=== PATIENT | male | born 1975 | race American Indian/Alaskan Native ===

== ENCOUNTER 2018-09-18 16:25 | Emergency (ER) | payer OTHER ==
[2018-09-18] MEDS ORDERED: ASPIRIN PO ONE (16:53)
--- NOTE | 2018-09-18 16:54 | Emergency Department Report ---
Chief Complaint: Chest Pain Stated Complaint: CHEST PAIN/ABD PAIN Time Seen by Provider: 09/18/18 16:50 - HPI History of Present Illness: This is a 43 y.o. male that presents with chest pain x 1 week. He smokes marijuana daily. - ROS Review of Systems: left sided chest pain and diarrhea MSE screening note: Focused history and physical exam performed. Due to findings the following was ordered: labs and CXR Fast track for further evaluation. ED Disposition for MSE Condition: Stable
[2018-09-18 17:13] VITALS: BP 114/68
[2018-09-18 17:35] LABS: Basophils # (Auto) 0.1 K/mm3 (0.0-0.1); Eosinophils % (Auto) 0.4 % (0.0-4.3); Hematocrit 36.9 % (35.5-45.6); Lymphocytes % (Auto) 12.8 % (13.4-35.0); Mean Corpuscular HGB Conc 35 % (32-34); Mean Corpuscular Volume 88 fl (84-94); Monocytes % (Auto) 12.3 % (0.0-7.3); Platelet Count 390 K/mm3 (140-440); Red Blood Count 4.18 M/mm3 (3.65-5.03); Red Cell Distribution Width 13.5 % (13.2-15.2)
[2018-09-18 17:55] LABS: BUN/Creatinine Ratio 11; Blood Urea Nitrogen 9 mg/dL (9-20); Calcium 10.4 mg/dL (8.4-10.2); Hemolysis Index 6
--- NOTE | 2018-09-18 18:03 | XRay Report ---
PROCEDURE: XR CHEST 1V AP TECHNIQUE: Frontal chest x-ray HISTORY: Chest Pain COMPARISONS: None FINDINGS: Normal heart size. Lungs are clear and well-expanded without focal infiltrate or consolidation. Both costophrenic angles are clipped. No pneumothorax is identified. Imaged axial skeleton is unremarkable. Minimal dextroscoliosis thoracolumbar spine. Hilar contours are within normal limits. IMPRESSION: Both costophrenic angles are clipped. No definite pneumothorax. No acute cardiopulmonary disease.. This document is electronically signed by Leidy Burton MD., September 18 2018 06:00:47 PM ET
[2018-09-18] MEDS ORDERED: PEPCID PO ONE (18:51)
[2018-09-18] MEDS ORDERED: PEPCID ONE (18:55)
--- NOTE | 2018-09-18 19:42 | Emergency Department Report ---
HPI - General Chief Complaint: Chest Pain Time Seen by Provider: 09/18/18 16:50 - HPI HPI: This is a 43-year-old male with known history of hypertension or diabetes or any medical condition who presents to ED complaining of midsternal chest pain that feels like it's coming from his stomach for the past 2 weeks. Patient states that he has had some nausea but no vomiting no diarrhea pain. Patient also states that he's been constipated for about a week now. Patient states pain is burning type sensation does intermittently throughout the day. He denies trauma to the chest or radiation anywhere else Patient denies fever/chills/ shortness of breath/headache/brown vision/diarrhea ED Past Medical Hx - Past Medical History Previous Medical History?: No - Surgical History Past Surgical History?: No - Social History Smoking Status: Current Every Day Smoker - Medications Home Medications: Home Medications Medication Instructions Recorded Confirmed Last Taken Type Famotidine [Pepcid] 40 mg PO QHS #30 tablet 09/18/18 Unknown Rx Mag Hydrox/Aluminum Hyd/Simeth 15 ml PO Q6H #1 oral.susp 09/18/18 Unknown Rx [Maalox Advanced Suspension] Ondansetron (Nf) [Zofran TAB] 8 mg PO Q8HR #30 tablet 09/18/18 Unknown Rx ED Review of Systems ROS: Stated complaint: CHEST PAIN/ABD PAIN Other details as noted in HPI Comment: All other systems reviewed and negative Physical Exam - Physical Exam Vital Signs: Vital Signs 09/18/18 09/18/18 17:12 17:57 Temperature 99.2 F Pulse Rate 99 H Respiratory 20 15 Rate Blood Pressure 114/68 [Right] O2 Sat by Pulse 97 Oximetry Physical Exam: GENERAL: Alert and oriented x3, no apparent distress, Normal Gait, atraumatic. HEAD: Head is normocephalic and a-traumatic. LUNGS: Symetrical with respiration, No wheezing, no rales or crackles, CTAB. HEART: S1, S2 present, regular rate and rhythm without murmur, no rubs, no gallops. Non tender to palpation ABDOMEN: No organomegaly was noted,Positive bowel sounds, soft, and non- distended. . Nontender to palpation on all Quadrants, NO CVA tenderness. BACK: Full range of motion, no spinal tenderness, nontender to palpation. SKIN: Warm and dry, No lesions, No ulceration or induration present. ED Course Vital Signs 09/18/18 09/18/18 17:12 17:57 Temperature 99.2 F Pulse Rate 99 H Respiratory 20 15 Rate Blood Pressure 114/68 [Right] O2 Sat by Pulse 97 Oximetry ED Medical Decision Making - Lab Data Result diagrams: 09/18/18 17:15 09/18/18 17:15 - Radiology Data Radiology results: report reviewed, image reviewed Chest x-ray shows abnormal findings. - Medical Decision Making 43-year-old male presents with acid reflux. All labs within normal limits troponin negative. Critical care attestation.: If time is entered above; I have spent that time in minutes in the direct care of this critically ill patient, excluding procedure time. ED Disposition Clinical Impression: Acid reflux Disposition: - TO HOME OR SELFCARE Is pt being admited?: No Does the pt Need Aspirin: No Condition: Stable Instructions: Diet for Ulcers and Gastritis (ED), Gastroesophageal Reflux Disease (ED) Additional Instructions: Make sure to follow up with the primary care physician as discussed. Take all your medications as you've been prescribed. If you have any worsening symptoms or develop new symptoms please return to ED immediately. Prescriptions: Famotidine [Pepcid] 40 mg PO QHS #30 tablet Mag Hydrox/Aluminum Hyd/Simeth [Maalox Advanced Suspension] 15 ml PO Q6H #1 oral.susp Ondansetron (Nf) [Zofran TAB] 8 mg PO Q8HR #30 tablet Referrals: [facility] [Provider Group] - 3-5 Days [facility] [Provider Group] - 3-5 Days Forms: Work/School Release Form(ED) Time of Disposition: 19:59
== END 2018-09-18 20:09 | disposition home or self-care (01) ==
LOC: ED 16:25
DX: K21.9 Gastro-esophageal reflux disease without esophagitis (principal); F17.200 Nicotine dependence, unspecified, uncomplicated
CPT/HCPCS: 36415; 71045; 80048; 84484; 85025; 93005; 93010

== ENCOUNTER 2020-08-19 05:24 | Inpatient (IN) | payer OTHER ==
[2020-08-19] MEDS ORDERED: LACTATED RINGERS 1,000 ML IV ONE (05:38)
[2020-08-19] MEDS ORDERED: SODIUM CHLORIDE 0.9% 1000 ML 1,000 ML IV ONE ×2 (05:38→06:49)
[2020-08-19] MEDS ORDERED: ONDANSETRON 4 MG/2 ML INJ IV ONE ×2 (05:38→06:49)
--- NOTE | 2020-08-19 06:14 | XRay Report ---
CHEST 1 VIEW 08/19/2020 6:00 AM INDICATION / CLINICAL INFORMATION: weakness. COMPARISON: 09/18/18 FINDINGS: SUPPORT DEVICES: None. HEART / MEDIASTINUM: No significant abnormality. LUNGS / PLEURA: No significant pulmonary or pleural abnormality. No pneumothorax. ADDITIONAL FINDINGS: No significant additional findings. IMPRESSION: 1. No acute findings. No change. Signer Name: John Borges MD Signed: 08/19/2020 6:09 AM Workstation Name: [id number]
[2020-08-19 06:27] LABS: Basophils % (Auto) 0.3 % (0.0-1.8); Eosinophils # (Auto) 0.4 K/mm3 (0.0-0.4); Eosinophils % (Auto) 4.8 % (0.0-4.3); Hematocrit 45.5 % (35.5-45.6); Hemoglobin 15.4 gm/dl (11.8-15.2); Lymphocytes % (Auto) 25.4 % (13.4-35.0); Mean Corpuscular HGB Conc 34 % (32-34); Mean Corpuscular Volume 84 fl (84-94); Monocytes # (Auto) 0.3 K/mm3 (0.0-0.8); Monocytes % (Auto) 3.6 % (0.0-7.3); Red Blood Count 5.45 M/mm3 (3.65-5.03); Red Cell Distribution Width 16.1 % (13.2-15.2)
[2020-08-19 06:40] LABS: Platelet Count 537 K/mm3 (140-440)
[2020-08-19] MEDS ORDERED: PIPERACIL/TAZOBACTA 4.5/NS 100 4.5 GM/100 ML VIAL IV ONE (06:49)
[2020-08-19] MEDS ORDERED: MORPHINE 2 MG/1 ML INJ IV ONE (06:49)
[2020-08-19] MEDS ORDERED: PANTOPRAZOLE 40 MG INJ IV ONE (06:49)
[2020-08-19 06:50] LABS: Alanine Aminotransferase 10 units/L (7-56); Albumin 4.1 g/dL (3.9-5); BUN/Creatinine Ratio 14; Blood Urea Nitrogen 18 mg/dL (9-20); Calcium 9.9 mg/dL (8.4-10.2); Hemolysis Index 24
--- NOTE | 2020-08-19 07:00 | Emergency Department Report ---
ED Abdominal Pain HPI - General Chief Complaint: Abdominal Pain Stated Complaint: EMESIS/DIARRHEA/SWEATING Time Seen by Provider: 08/19/20 06:14 Source: patient Mode of arrival: Wheelchair Limitations: No Limitations - History of Present Illness Initial Comments: This is a 45-year-old man who apparently has had vomiting diarrhea and abdominal pain for approximately 3 weeks. He is an extremely poor historian. He does not answer questions directly. He cannot tell me how many times a day he has been having diarrhea. He cannot tell me if he is seeing blood in his stool or his vomited anything like coffee grounds. He does tell me he drank some prune juice so he thinks that made his stool dark. He admits to no medical encounters over the course of this illness. Apparently he has been sweaty although he denies fever or chills. He does not state where his abdomen hurts but apparently it is diffusely tender. General appearance of this patient is very asthenic. He denies a history of HIV. He states he lives at home with "his lady". He states he had an HIV test in the past. He denies any past medical history or routine medication. He s tates he has never been hospitalized. He states he has never had any abdominal surgery. However the record is populated with a history of "stomach surgery". MD Complaint: abdominal pain -: week(s) Location: diffuse Radiation: other (Patient would not comprehend) Migration to: other (Unobtainable) Severity: severe Quality: aching (Did not describe) Consistency: constant Improves With: nothing Worsens With: other (Did not elaborate) Context: other (None of the above) - Related Data Previous Rx's Medication Instructions Recorded Last Taken Type Famotidine [Pepcid] 40 mg PO QHS #30 tablet 09/18/18 Unknown Rx Mag Hydrox/Aluminum Hyd/Simeth 15 ml PO Q6H #1 oral.susp 09/18/18 Unknown Rx [Maalox Advanced Suspension] Ondansetron (Nf) [Zofran TAB] 8 mg PO Q8HR #30 tablet 09/18/18 Unknown Rx Allergies Allergy/AdvReac Type Severity Reaction Status Date / Time No Known Allergies Allergy Unverified 09/18/18 16:28 ED Review of Systems ROS: Stated complaint: EMESIS/DIARRHEA/SWEATING Other details as noted in HPI Constitutional: other (Sweating). denies: chills, fever Eyes: denies: eye pain, vision change ENT: denies: ear pain, throat pain Respiratory: denies: cough, shortness of breath Cardiovascular: denies: chest pain, palpitations Endocrine: no symptoms reported Gastrointestinal: abdominal pain, nausea, vomiting, diarrhea Genitourinary: other (No symptoms reported) Musculoskeletal: denies: back pain, arthralgia Skin: denies: rash, lesions Neurological: denies: headache, weakness Psychiatric: denies: anxiety, depression Hematological/Lymphatic: denies: easy bleeding, easy bruising ED Past Medical Hx - Past Medical History Previous Medical History?: No - Surgical History Past Surgical History?: Yes Additional Surgical History: stomach surgery, will ask the patient again regarding this - Social History Smoking Status: Current Every Day Smoker Substance Use Type: Alcohol, Marijuana - Medications Home Medications: Home Medications Medication Instructions Recorded Confirmed Last Taken Type Famotidine [Pepcid] 40 mg PO QHS #30 tablet 09/18/18 Unknown Rx Mag Hydrox/Aluminum Hyd/Simeth 15 ml PO Q6H #1 oral.susp 09/18/18 Unknown Rx [Maalox Advanced Suspension] Ondansetron (Nf) [Zofran TAB] 8 mg PO Q8HR #30 tablet 09/18/18 Unknown Rx ED Physical Exam - General Limitations: No Limitations General appearance: alert - Head Head exam: Present: atraumatic, normocephalic - Eye Eye exam: Present: normal appearance. Absent: scleral icterus - ENT ENT exam: Present: mucous membranes moist - Neck Neck exam: Present: normal inspection - Respiratory Respiratory exam: Present: normal lung sounds bilaterally. Absent: respiratory distress - Cardiovascular Cardiovascular Exam: Present: normal rhythm, tachycardia. Absent: systolic murmur, diastolic murmur, rubs, gallop - GI/Abdominal GI/Abdominal exam: Present: soft, distended (Somewhat), tenderness, guarding, rebound (Probably), rigid (Somewhat), normal bowel sounds - Rectal Rectal exam: Present: deferred - Extremities Exam Extremities exam: Present: normal inspection - Back Exam Back exam: Present: normal inspection - Neurological Exam Neurological exam: Present: alert, oriented X3, CN II-XII intact. Absent: motor sensory deficit - Psychiatric Psychiatric exam: Present: normal affect, normal mood - Skin Skin exam: Present: warm, dry, intact, normal color. Absent: rash ED Course Vital Signs 08/19/20 08/19/20 08/19/20 05:34 06:00 06:02 Pulse Rate 64 78 Respiratory 14 30 H Rate Blood Pressure 53/25 90/51 O2 Sat by Pulse 86 100 Oximetry 08/19/20 08/19/20 08/19/20 06:20 06:30 06:40 Pulse Rate 97 H 107 H Respiratory 27 H 21 25 H Rate Blood Pressure 106/73 116/72 116/72 O2 Sat by Pulse 100 96 Oximetry - Reevaluation(s) Reevaluation #1: The patient presented to this emergency department hypotensive. He was given a fluid bolus prior to my arrival. He did respond. He is in the normotensive range during my encounter. He is already had CT for emergency imaging. Zosyn was ordered. Protonix. Type and screen. 08/19/20 07:03 Reevaluation #2: Patient examined on return from CT. Pneumoperitoneum was suspected clinically. I received a call from Dr. Retana that the patient has a large amount of free air most likely secondary to a perforated gastric ulcer consider malignancy. The patient remains awake and alert. He did have a second hypotensive episode. His blood pressure with additional fluids was approximately 120 systolic. I asked him about whether or not he had prior surgery. He said this time yes but does not described endoscopy for a stomach ulcer. I spoke with Dr. Figueroa, our general surgeon drafter directional survey. She is notifying the OR. I spoke with the hospitalist we are admitting the patient. I wade additional blood work via a radial stick without difficulty on the right. The lab was unable to get type and screen. Several tubes were drawn. Procedure was well- tolerated. 08/19/20 08:06 ED Medical Decision Making - Lab Data Result diagrams: 08/19/20 05:56 08/19/20 05:56 Laboratory Results - last 24 hr 08/19/20 08/19/20 08/19/20 05:56 05:56 05:56 WBC 8.0 RBC 5.45 H Hgb 15.4 H Hct 45.5 MCV 84 MCH 28 MCHC 34 RDW 16.1 H Plt Count 537 H Lymph % (Auto) 25.4 [place] % (Auto) 3.6 Eos % (Auto) 4.8 H Baso % (Auto) 0.3 Lymph # (Auto) 2.0 [place] # (Auto) 0.3 Eos # (Auto) 0.4 Baso # (Auto) 0.0 Seg Neutrophils % 65.9 Seg Neutrophils # 5.3 Sodium 141 Potassium 3.9 Chloride 97.1 L Carbon Dioxide 29 Anion Gap 19 BUN 18 Creatinine 1.3 Estimated GFR > 60 BUN/Creatinine Ratio 14 Glucose 153 H Lactic Acid 3.40 H* Calcium 9.9 Total Bilirubin 0.20 AST 14 ALT 10 Alkaline Phosphatase 76 Troponin T < 0.010 Total Protein 7.2 Albumin 4.1 Albumin/Globulin Ratio 1.3 08/19/20 05:56 WBC RBC Hgb Hct MCV MCH MCHC RDW Plt Count Lymph % (Auto) [place] % (Auto) Eos % (Auto) Baso % (Auto) Lymph # (Auto) [place] # (Auto) Eos # (Auto) Baso # (Auto) Seg Neutrophils % Seg Neutrophils # Sodium Potassium Chloride Carbon Dioxide Anion Gap BUN Creatinine Estimated GFR BUN/Creatinine Ratio Glucose Lactic Acid Calcium Total Bilirubin AST ALT Alkaline Phosphatase Troponin T < 0.010 Total Protein Albumin Albumin/Globulin Ratio - EKG Data EKG shows normal: sinus rhythm, axis, intervals, QRS complexes, ST-T waves - EKG Data Interpretation: LVH (Suggestive of LVH. No STEMI. Right atrial enlargement. Nonspecific changes.) - Radiology Data Radiology results: report reviewed interpreted by me: Chest x-ray no obvious pneumoperitoneum read as negative by radiologist FINDINGS: Abdomen/pelvis: There is small to medium free air along the anterior abdominal wall. Large free fluid is present throughout the abdomen. The stomach is markedly abnormal with diffuse gastric wall thickening measuring up to 2.3 cm. A large ulceration is identified along the lesser curvature of the stomach measuring up to 4.2 x 1.9 cm in axial plane. Perforated gastric ulcer is likely the etiology. Perforated gastric mass could also be considered but is thought less likely. The remaining small bowel loops are normal wall thickness and caliber. Mild diverticulosis of ascending colon is noted. Normal appendix. Sludge is suspected in the gallbladder. No biliary dilatation or inflammation. The liver, pancreas, spleen, adrenal glands and kidneys are unremarkable. 1.5 cm simple right renal cyst is noted. The aorta and vascular structures are patent and unremarkable. No evidence for adenopathy. The bladder and prostate gland are unremarkable. Lungs/bones: No significant abnormality. IMPRESSION: Large perforated gastric ulcer is suspected as described with free air and moderate to large fluid in the abdomen. See above. Probable sludge in the gallbladder. Mild diverticulosis of the proximal colon. Critical Care Time: Yes Critical care time in (mins) excluding proc time.: 90 Critical care attestation.: If time is entered above; I have spent that time in minutes in the direct care of this critically ill patient, excluding procedure time. ED Disposition Clinical Impression: Perforated gastric ulcer Qualifiers: Gastric ulcer chronicity: acute Qualified Code(s): K25.1 - Acute gastric ulcer with perforation Hypotension Qualifiers: Hypotension type: unspecified hypotension type Qualified Code(s): I95.9 - Hypotension, unspecified Disposition: DC-09 OP ADMIT IP TO THIS HOSP Is pt being admited?: Yes Does the pt Need Aspirin: No Condition: Stable Referrals: PRIMARY CARE, [Primary Care Provider] - 3-5 Days Time of Disposition: 08:14
--- NOTE | 2020-08-19 07:54 | Cat Scan Report ---
CT ABDOMEN AND PELVIS WITH CONTRAST HISTORY: Nausea, vomiting and diarrhea. Abdominal pain.. COMPARISON: None. TECHNIQUE: Helical CT images of the abdomen and pelvis were obtained following administration of intr avenous contrast. Sagittal and coronal reformatted images were reviewed. All CT scans at this [facility] are performed using CT dose reduction for ALARA by means of automated exposure control. CONTRAST: 100 ml of intravenous contrast administered. FINDINGS: Abdomen/pelvis: There is small to medium free air along the anterior abdominal wall. Large free flui d is present throughout the abdomen. The stomach is markedly abnormal with diffuse gastric wall thick ening measuring up to 2.3 cm. A large ulceration is identified along the lesser curvature of the stom ach measuring up to 4.2 x 1.9 cm in axial plane. Perforated gastric ulcer is likely the etiology. Per forated gastric mass could also be considered but is thought less likely. The remaining small bowel l oops are normal wall thickness and caliber. Mild diverticulosis of ascending colon is noted. Normal a ppendix. Sludge is suspected in the gallbladder. No biliary dilatation or inflammation. The liver, pancreas, s pleen, adrenal glands and kidneys are unremarkable. 1.5 cm simple right renal cyst is noted. The aorta and vascular structures are patent and unremarkable. No evidence for adenopathy. The bladder and prostate gland are unremarkable. Lungs/bones: No significant abnormality. IMPRESSION: Large perforated gastric ulcer is suspected as described with free air and moderate to large fluid in the abdomen. See above. Probable sludge in the gallbladder. Mild diverticulosis of the proximal colon. CRITICAL RESULT: Time of Discovery (INJECTOR ASSEMBLER/CDT): 0642 hours Time of Communication (INJECTOR ASSEMBLER/CDT): 0646 hours Licensed Practitioner Receiving Report: Osmani Peña Read-Back Performed: Yes. Signer Name: Baltazar Retana Jr, MD Signed: 08/19/2020 7:49 AM Workstation Name: [id number]
--- NOTE | 2020-08-19 08:33 | History and Physical Report ---
History of Present Illness Date of examination: 08/19/20 Chief complaint: Abdominal pain History of present illness: This is a 45-year-old male with peptic ulcer disease, current tobacco use, EtOH abuse and daily marijuana use who presents to the emergency department 08/19 with a 1.5-2 week history of abdominal pain which gradually worsened over the last 10 days located in the lower abdomen which is described as sharp rated at 10/10 which worsened with p.o. intake and was intermittently eased with the use of [id number] antiacids. Patient also states that he has had epigastric pain with p.o. intake over the same timeframe. Patient acknowledges 2 episodes of vomiting yesterday and today which were dark brown in color but did not small bloody. Patient also states that he has had dark bowel movements which do not small bloody in nature. Patient denies hematemesis, hematochezia, hemoptysis or diarrhea. Patient denies fevers, chills, cough, hemoptysis, recent travel, recent contact with sick persons or known exposure to COVID-19. Patient states that he has had night sweats and weight loss of approximately 10 pounds over the past 1-1/2 to 2 weeks. Upon arrival to the emergency department patient was hypotensive (which was receptive to IV fluid and he received a total of 3 L of normal saline), tachycardic and lab work revealed leukocytosis, lactic acidosis. CT abdomen/pelvis revealed pneumoperitoneum with perforated gastric ulcer and he was initiated on sepsis protocol. Patient is also hypomagnesemic. General surgery was consulted in the emergency department and the patient will be admitted to the hospital service for perforated gastric ulcer, sepsis and hypo magnesemia. Patient disease was consulted. 08/19: S/p ex lap gastric lavage and omental patch repair of perforated gastric ulcer with placement of NG tube, Granado catheter and TATIANA drain x2 on the right side. Infectious disease was consulted due to Intra-Op findings of gastric contents throughout the abdominal cavity and she has been started on fluconazole in addition to Zosyn. Past History Past Medical History: other (Peptic ulcer disease) Past Surgical History: No surgical history Social history: single, lives with family, smoking, alcohol abuse, full code. denies: prescription drug abuse, IV drug use Family history: no significant family history Medications and Allergies Allergies Allergy/AdvReac Type Severity Reaction Status Date / Time No Known Allergies Allergy Unverified 09/18/18 16:28 Home Medications Medication Instructions Recorded Confirmed Last Taken Type Famotidine [Pepcid] 40 mg PO QHS #30 tablet 09/18/18 Unknown Rx Mag Hydrox/Aluminum Hyd/Simeth 15 ml PO Q6H #1 oral.susp 09/18/18 Unknown Rx [Maalox Advanced Suspension] Ondansetron (Nf) [Zofran TAB] 8 mg PO Q8HR #30 tablet 09/18/18 Unknown Rx Active Meds: Active Medications Pantoprazole Sodium 80 mg/ (Sodium Chloride) 100 mls @ 10 mls/hr IV DIRECT SIOBHAN Sodium Chloride (Nacl 0.9% 1000 Ml) 1,000 mls @ 125 mls/hr IV DIRECT SIOBHAN Piperacillin Sod/Tazobactam Sod (Zosyn/Ns 4.5gm/100ml) 4.5 gm in 100 mls @ 200 mls/hr IV Q8H SIOBHAN; Protocol Review of Systems Constitutional: weight loss, night sweats, anorexia, no weight gain, no fever, no chills, no sweats, no fatigue, no weakness, no malaise Ears, nose, mouth and throat: no ear pain, no ear discharge, no tinnitis, no decreased hearing, no nose pain, no nasal congestion, no nasal discharge, no sinus pressure, no sinus pain, no epistaxis, no bleeding gums, no dental pain, no mouth pain, no hoarseness, no sore throat, no post-nasal drip, no headache Cardiovascular: no chest pain, no orthopnea, no palpitations, no rapid/irregular heart beat, no edema, no syncope, no lightheadedness, no shortness of breath, no dyspnea on exertion, no high blood pressure, no leg edema Respiratory: no cough, no cough with sputum, no excessive sputum, no hemoptysis, no shortness of breath, no dyspnea on exertion, no congestion, no wheezing, no pleurisy, no pain on inspiration Gastrointestinal: abdominal pain, nausea, vomiting, heartburn, indigestion, belching, no diarrhea, no constipation, no change in bowel habits, no hematemesis, no coffee ground emesis, no BRBPR, no melena, no hematochezia Genitourinary Male: no dysuria, no hematuria, no flank pain, no discharge, no urinary frequency, no urinary hesitancy, no nocturia, no incontinence, no polyuria Rectal: no incontinence, no bleeding, no itching, no hemorrhoids Musculoskeletal: no neck stiffness, no neck pain, no shooting arm pain, no arm numbness/tingling, no low back pain, no shooting leg pain, no leg numbness/tingling, no frequent falls, no fractures Integumentary: no rash, no pruritis, no redness, no sores, no wounds, no jaundice, no darkening of skin Neurological: no head injury, no transient paralysis, no paralysis, no weakness, no parathesias, no numbness, no tingling, no seizures, no syncope, no tremors, no ataxia, no lack of coordination, no headaches, no migraines, no change in speech, no change in mentation, no confusion, no changes in smell/taste, no paralysis Psychiatric: no anxiety, no memory loss, no change in sleep habits, no sleep disturbances, no insomnia, no hypersomnia, no change in appetite, no change in libido, no suicidal ideation, no disorientation, no hallucinations, no depression, no hopelessness, no confusion, no irritability Endocrine: weight change, no cold intolerance, no heat intolerance, no polypha ilana, no excessive thirst, no polydipsia, no polyuria, no nocturia, no excessive sweating, no flushing, no increase in ring/shoe/hat size, no palpatations, no high blood sugars, no low blood sugars Hematologic/Lymphatic: no easy bruising, no easy bleeding Allergic/Immunologic: no urticaria, no allergic rhinitis Exam - Constitutional Vitals: Temp Pulse Resp BP Pulse Ox 107 H 25 H 116/72 96 08/19/20 06:40 08/19/20 06:40 08/19/20 06:40 08/19/20 06:40 General appearance: Present: no acute distress - EENT Eyes: Present: PERRL, EOM intact ENT: hearing intact, poor dentition - Neck Neck: Present: normal ROM - Respiratory Respiratory effort: normal Respiratory: bilateral: CTA - Cardiovascular Rhythm: regular Heart Sounds: Present: S1 & S2. Absent: systolic murmur, diastolic murmur - Extremities Extremities: no ischemia, pulses intact, pulses symmetrical, No edema, normal temperature, normal color, Full ROM Peripheral Pulses: within normal limits - Abdominal General gastrointestinal: Present: soft, non-tender, non-distended, normal bowel sounds - Musculoskeletal Musculoskeletal: strength equal bilaterally - Psychiatric Psychiatric: appropriate mood/affect, cooperative - Neurologic Neurologic: CNII-XII intact, no focal deficits, no moves all extremities - Allied Health Allied health notes reviewed: nursing HEART Score - HEART Score Troponin: Troponin T < 0.010 ng/mL (0.00-0.029) 08/19/20 05:56 Troponin T < 0.010 ng/mL (0.00-0.029) 08/19/20 05:56 Results - Labs CBC & Chem 7: 08/19/20 16:10 08/19/20 16:10 Labs: Abnormal lab results 08/19/20 08/19/20 08/19/20 Range/Units 05:56 05:56 05:56 RBC 5.45 H (3.65-5.03) M/mm3 Hgb 15.4 H (11.8-15.2) gm/dl RDW 16.1 H (13.2-15.2) % Plt Count 537 H (140-440) K/mm3 Eos % (Auto) 4.8 H (0.0-4.3) % Chloride 97.1 L (98-107) mmol/L Glucose 153 H (75-100) mg/dL Lactic Acid 3.40 H* (0.7-2.0) mmol/L - Imaging and Cardiology CT scan - abdomen: report reviewed CT scan - chest: report reviewed Assessment and Plan Sepsis -Patient presented with hypotension, tachycardia, lactic acidosis and a perforated gastric ulcer -Antibiotic therapy -08/19 blood cultures x2 pending -Patient's disease consulted, patient recommendations Perforated gastric ulcer -08/19 CT abdomen/pelvis shows a large perforated gastric ulcer as suspected (large ulceration along the lesser curvature of the stomach measuring 4.2 x 1.9 cm) with free air, moderate to large fluid in the abdomen, probable sludge in the gallbladder, mild esophagitis in the proximal colon, 1.5 cm simple renal cyst -08/19 CXR shows no pneumothorax of significant pulmonary or pleural abnormality -S/p perforated gastric ulcer repair with surgery -Intra-Op findings: Greater than 1 L of gastric fluid throughout the abdomen with static gastric contact, 3 cm perforated ulcer mid body anterior stomach, severe inflammation of the stomach body and lesser curvature, reactive perigastric lymphadenopathy -N.p.o. -MIVF -Antibiotic therapy -General surgery consulted, appreciate recommendations -Protonix drip -Supportive care Pneumoperitoneum -08/19 CT abdomen/pelvis shows a large perforated gastric ulcer as suspected (large ulceration along the lesser curvature of the stomach measuring 4.2 x 1.9 cm) with free air, moderate to large fluid in the abdomen, probable sludge in the gallbladder, mild esophagitis in the proximal colon, 1.5 cm simple renal cyst -Telemetry monitoring -General surgery consulted, appreciate recommendations -Intra-Op findings: Greater than 1 L of gastric fluid throughout the abdomen with static gastric contact, 3 cm perforated ulcer mid body anterior stomach, severe inflammation of the stomach body and lesser curvature, reactive perigastric lymphadenopathy -Supportive care Hypotension -Patient presented with a systolic in the 50s which responded to fluid bolus -S/p 3 L IV -Blood pressure monitoring per protocol Lactic acidosis -Presented with lactic of 3.4 -Trend lactic acid -S/p 3 L IV MIVF -MIVF Hypomagnesemia -Presented with magnesium of 1.6 -Repleted -Trend magnesium Thrombocytosis -Presented with a platelet count of 537 -Trend CBC EtOH abuse -Ativan as needed for agitation/alcohol withdrawal -Assess CIWA protocol -Supportive care -Aspiration/seizure precautions Tobacco abuse -Tobacco cessation education -Consider transdermal nicotine patch while inpatient if needed Marijuana abuse -Marijuana use cessation education completed DVT prophylaxis -SCDs to bilateral LE while in bed Full code
--- NOTE | 2020-08-19 08:56 | Anesthesia Consultation ---
Anesthesia Consult and Med Hx Date of service: 08/19/20 - Airway Anesthetic Teeth Evaluation: Good ROM Head & Neck: Adequate Mental/Hyoid Distance: Adequate Mallampati Class: Class II Intubation Access Assessment: Probably Good - Pre-Operative Health Status ASA Pre-Surgery Classification: ASA3, Emergency Proposed Anesthetic Plan: General - Pulmonary Hx Smoking: Yes (1PPD) Hx Asthma: No Hx Respiratory Symptoms: No SOB: No COPD: No Home Oxygen Therapy: No Hx Pneumonia: No Hx Sleep Apnea: No - Cardiovascular System Hx Hypertension: No Hx Coronary Artery Disease: No Hx Heart Attack/AMI: No Hx Angina: No Hx Percutaneous Transluminal Coronary Angioplasty (PTCA): No Hx Cardia Arrhythmia: No Hx Pacemaker: No Hx Internal Defibrillator: No Hx Valvular Heart Disease: No Hx Heart Murmur: No Hx Peripheral Vascular Disease: No - Central Nervous System Hx Neuromuscular Disorder: No Hx Seizures: No CVA: No Hx Back Pain: No Hx Psychiatric Problems: No - Gastrointestinal Hx Ulcer: Yes Hx Gastroesophageal Reflux Disease: Yes - Endocrine Hx Renal Disease: No Hx End Stage Renal Disease: No Hx Cirrhosis: No Hx Liver Disease: No Hx Insulin Dependent Diabetes: No Hx Non-Insulin Dependent Diabetes: No Hx Thyroid Disease: No Hx Hypothyroidism: No Hx Hyperthyroidism: No - Hematic Hx Anemia: No Hx Sickle Cell Disease: No - Other Systems Hx Alcohol Use: Yes (every weekend hard drinks) Hx Substance Use: Yes (daily marijuana) Hx Cancer: No Hx Obesity: No
--- NOTE | 2020-08-19 08:57 | Anesthesia Day of Surgery ---
Anesthesia Day of Surgery - Day of Surgery Patient Examined: Yes Patient H&P Reviewed: Yes Patient is NPO: Yes
[2020-08-19] MEDS ORDERED: ONDANSETRON 4 MG/2 ML INJ IV PRN ×2 (09:00→13:15)
[2020-08-19] MEDS ORDERED: MORPHINE 2 MG/1 ML INJ IV PRN (09:00)
--- NOTE | 2020-08-19 09:07 | Consultation ---
History of Present Illness Consult date: 08/19/20 Reason for consult: abdominal pain Chief complaint: abdominal pain - History of present illness History of present illness: 45 yo M with hx of gastric ulcer who presents to ER with 1 1/2 week of abdominal pain. Pain is sharp, gradually got worse over the last 10 days and is located in the lower abdomen. Patient is not the best historian. He states that on the car ride to the hospital, the pain worsened when going over bumps in the road. He has had n/v. Last meal was yesterday which he did not tolerate well. No f/c. No cp, sob. He is having BMs. He has not been on ulcer medication since last year. Past History Past Medical History: other (PUD) Past Surgical History: No surgical history Social history: no significant social history Family history: no significant family history Medications and Allergies Allergies Allergy/AdvReac Type Severity Reaction Status Date / Time No Known Allergies Allergy Unverified 09/18/18 16:28 Home Medications Medication Instructions Recorded Confirmed Last Taken Type Famotidine [Pepcid] 40 mg PO QHS #30 tablet 09/18/18 Unknown Rx Mag Hydrox/Aluminum Hyd/Simeth 15 ml PO Q6H #1 oral.susp 09/18/18 Unknown Rx [Maalox Advanced Suspension] Ondansetron (Nf) [Zofran TAB] 8 mg PO Q8HR #30 tablet 09/18/18 Unknown Rx Active Meds: Active Medications Pantoprazole Sodium 80 mg/ (Sodium Chloride) 100 mls @ 10 mls/hr IV DIRECT SIOBHAN Sodium Chloride (Nacl 0.9% 1000 Ml) 1,000 mls @ 125 mls/hr IV DIRECT SIOBHAN Piperacillin Sod/Tazobactam Sod (Zosyn/Ns 4.5gm/100ml) 4.5 gm in 100 mls @ 200 mls/hr IV Q8H SIOBHAN; Protocol Morphine Sulfate (Morphine 2 Mg/1 Ml Inj) 1 mg IV Q4H PRN PRN Reason: Pain, Moderate (4-6) Morphine Sulfate (Morphine 4 Mg/1 Ml Inj) 4 mg IV Q4H PRN PRN Reason: Pain , Severe (7-10) Ondansetron HCl (Ondansetron 4 Mg/2 Ml Inj) 4 mg IV Q6H PRN PRN Reason: Nausea And Vomiting Sodium Chloride (Sodium Chloride 0.9% 10 Ml Flush Syringe) 10 ml IV BID SIOBHAN Sodium Chloride (Sodium Chloride 0.9% 10 Ml Flush Syringe) 10 ml IV PRN PRN PRN Reason: LINE FLUSH Review of Systems All systems: negative (10 pt ROS performed and negative except for that listed in HPI) Exam Vital Signs Pulse Resp BP Pulse Ox 64 14 53/25 86 08/19/20 05:34 08/19/20 05:34 08/19/20 05:34 08/19/20 05:34 Narrative exam: Gen: AAOx3. NAD. moderate distress due to pain ENT: no scleral icterus or conjunctival pallor CV: s1, S2+ Resp: even and unlabored Abd: soft, ND, diffuse TTP with guarding, rigidity Ext: no c/c/e Results - Labs 08/19/20 05:56 08/19/20 05:56 Abnormal lab results 08/19/20 08/19/20 08/19/20 Range/Units 05:56 05:56 05:56 RBC 5.45 H (3.65-5.03) M/mm3 Hgb 15.4 H (11.8-15.2) gm/dl RDW 16.1 H (13.2-15.2) % Plt Count 537 H (140-440) K/mm3 Eos % (Auto) 4.8 H (0.0-4.3) % Chloride 97.1 L (98-107) mmol/L Glucose 153 H (75-100) mg/dL Lactic Acid 3.40 H* (0.7-2.0) mmol/L Diabetes panel 08/19/20 Range/Units 05:56 Sodium 141 (137-145) mmol/L Potassium 3.9 (3.6-5.0) mmol/L Chloride 97.1 L (98-107) mmol/L Carbon Dioxide 29 (22-30) mmol/L BUN 18 (9-20) mg/dL Creatinine 1.3 (0.8-1.3) mg/dL Glucose 153 H (75-100) mg/dL Calcium 9.9 (8.4-10.2) mg/dL AST 14 (5-40) units/L ALT 10 (7-56) units/L Alkaline Phosphatase 76 (35-129) units/L Total Protein 7.2 (6.3-8.2) g/dL Albumin 4.1 (3.9-5) g/dL Calcium panel 08/19/20 Range/Units 05:56 Calcium 9.9 (8.4-10.2) mg/dL Albumin 4.1 (3.9-5) g/dL Pituitary panel 08/19/20 Range/Units 05:56 Sodium 141 (137-145) mmol/L Potassium 3.9 (3.6-5.0) mmol/L Chloride 97.1 L (98-107) mmol/L Carbon Dioxide 29 (22-30) mmol/L BUN 18 (9-20) mg/dL Creatinine 1.3 (0.8-1.3) mg/dL Glucose 153 H (75-100) mg/dL Calcium 9.9 (8.4-10.2) mg/dL Adrenal panel 08/19/20 Range/Units 05:56 Sodium 141 (137-145) mmol/L Potassium 3.9 (3.6-5.0) mmol/L Chloride 97.1 L (98-107) mmol/L Carbon Dioxide 29 (22-30) mmol/L BUN 18 (9-20) mg/dL Creatinine 1.3 (0.8-1.3) mg/dL Glucose 153 H (75-100) mg/dL Calcium 9.9 (8.4-10.2) mg/dL Total Bilirubin 0.20 (0.1-1.2) mg/dL AST 14 (5-40) units/L ALT 10 (7-56) units/L Alkaline Phosphatase 76 (35-129) units/L Total Protein 7.2 (6.3-8.2) g/dL Albumin 4.1 (3.9-5) g/dL - Imaging CT scan - abdomen: report reviewed, image reviewed CT scan - pelvis: report reviewed, image reviewed Assessment and Plan 45 yo M with perforated viscus Plan: 1. NPO - strict 2. IVF 3. IV abx - zosyn received in ER 4. protonix gtt 5. DVT ppx 6. ID consult 7. prn pain control 8. Recommend emergent OR for exlap. Explained this to patient and all questions answered. The risks, benefits, alternatives were discussed. Consent obtained for exlap, possible gastric rxn, possible bowel rxn, possible ostomy. Thank you, please call with questions
[2020-08-19] MEDS ORDERED: propofoL 200 MG/20 ML VIAL IV ONE (09:13)
[2020-08-19] MEDS ORDERED: fentaNYL 100 MCG/2 ML INJ ONE ×2 (09:13→09:20)
[2020-08-19] MEDS ORDERED: MIDAZOLAM 2 MG/2 ML INJ ONE (09:21)
[2020-08-19 09:50] LABS: Creatine Kinase MB < 1.0 ng/mL (0.0-4.0)
[2020-08-19] MEDS ORDERED: MAGNESIUM SULFATE 4 GM/100 ML BAG IV ONE (10:30)
[2020-08-19] MEDS ORDERED: SODIUM CHLORIDE 0.9% IRR 1,500 ML BOTTLE IR ONE ×2 (10:35)
[2020-08-19] MEDS ORDERED: LIDOCAINE MPF (2%) 20 MG/1 ML VIAL 5 ML ONE (11:08)
[2020-08-19] MEDS ORDERED: PHENYLEPHRINE/NS 1,000 MCG/10 ML SYRINGE (OR USE) IV ONE (11:08)
[2020-08-19] MEDS ORDERED: GLYCOPYRROLATE 0.4 MG/2 ML INJ ONE (11:08)
[2020-08-19] MEDS ORDERED: HYDROmorphone 1 MG/1 ML INJ ONE (11:08)
[2020-08-19] MEDS ORDERED: ROCURONIUM 50 MG/5 ML INJ IV ONE (11:08)
[2020-08-19] MEDS ORDERED: ONDANSETRON 4 MG/2 ML INJ ONE (11:08)
[2020-08-19] MEDS ORDERED: dexAMETHasone 20 MG/5 ML VIAL ONE (11:08)
[2020-08-19] MEDS ORDERED: NEOSTIGMINE 10MG/10 ML INJ MDV ONE (11:08)
[2020-08-19] MEDS ORDERED: SUCCINYLCHOLINE CHLORIDE 200 MG/10 ML INJ MDV ONE (11:08)
--- NOTE | 2020-08-19 11:22 | Post Operative Note ---
Pre-op diagnosis: perforated viscus Post-op diagnosis: other (perforated gastric ulcer) Findings: 1. >1L of gastric fluid throughout abdomen with solid gastric content 2. 3cm perforated ulcer of anterior stomach, mid body 3. severe inflammation of the stomach body and lesser curve 4. reactive perigastric lymphadenopathy Procedure: exploratory laparotomy, peritoneal lavage, omental patch repair of perforated gastric ulcer Anesthesia: ELYA Surgeon: ANNE MARIE MCCONNELL Cluster Bore Operator: SHANE FOUNTAIN Estimated blood loss: minimal Pathology: list (1. Frozen section - perigastric lymph node and gastric ulcer) Specimen disposition: to lab Condition: stable Disposition: PACU
--- NOTE | 2020-08-19 12:45 | XRay Report ---
XR abdomen 1V ap INDICATION: NG tube placement. COMPARISON: None available. FINDINGS: The tip of the NG tube projects over the body of the stomach. Signer Name: Guy Hdez MD Signed: 08/19/2020 12:40 PM Workstation Name: [id number]
--- NOTE | 2020-08-19 13:10 | Event Note ---
Date: 08/19/20 ID consulted. Patient in OR. Gastric ulcer with perforation and peritonitis. Recs: empiric Zosyn + Fluconazole Full consult in AM
--- NOTE | 2020-08-19 13:15 | Post Anesthesia Evaluation ---
- Post Anesthesia Evaluation Patient Participated: Yes Airway Patent: Yes Stable Respiratory Function: Yes Nausea/Vomiting: No Temp > 96.8F: Yes Pain Manageable: Yes Adequeate Hydration: Yes Anesthesia Complications: No Block Receding Appropriately: Not Applicable Patient on Ventilator: No
[2020-08-19] MEDS: HYDROmorphone 1 MG/1 ML INJ IV PRN ×2 (13:20→15:22)
[2020-08-19] MEDS ORDERED: PHENOL 1.4% 177 ML BOTTLE MM PRN (13:22)
[2020-08-19] MEDS: FLUCONAZOLE 400 MG 200 ML IV SCH (14:25)
[2020-08-19] MEDS: SODIUM CHLORIDE 0.9% 1000 ML 1,000 ML IV SCH ×2 (14:26→23:29)
[2020-08-19] MEDS: PIPERACIL/TAZOBACTA 4.5/NS 100 4.5 GM/100 ML VIAL IV SCH ×2 (15:28→23:26)
[2020-08-19 16:25] LABS: Hematocrit 38.4 % (35.5-45.6); Hemoglobin 12.2 gm/dl (11.8-15.2); Mean Corpuscular HGB Conc 32 % (32-34); Mean Corpuscular Volume 83 fl (84-94); Platelet Count 393 K/mm3 (140-440); Red Blood Count 4.63 M/mm3 (3.65-5.03); Red Cell Distribution Width 15.9 % (13.2-15.2)
[2020-08-19 16:43] LABS: BUN/Creatinine Ratio 16; Blood Urea Nitrogen 16 mg/dL (9-20); Calcium 7.7 mg/dL (8.4-10.2); Hemolysis Index 42
[2020-08-19] MEDS ORDERED: NALOXONE 0.4 MG/1 ML INJ IV PRN (16:48)
[2020-08-19] MEDS ORDERED: LORazepam 2 MG/ML VIAL IV PRN (16:52)
--- NOTE | 2020-08-19 17:28 | Operative Report ---
Operative Report Operative Report: Date: 08/19/20 Pre-op diagnosis: perforated viscus Post-op diagnosis: other (perforated gastric ulcer) Findings: 1. >1L of gastric fluid throughout abdomen with solid gastric content 2. 3cm perforated ulcer of anterior stomach, mid body 3. severe inflammation of the stomach body and lesser curve 4. reactive perigastric lymphadenopathy IVF in : 2L Granado: 100cc NGT: scant Procedure: exploratory laparotomy, peritoneal lavage, omental patch repair of perforated gastric ulcer Anesthesia: ZANDER Surgeon: ANNE MARIE MCCONNELL [employer] Manager: SHANE FOUNTAIN Estimated blood loss: minimal Pathology: list (1. Frozen section - perigastric lymph node and gastric ulcer), 2. Peritoneal fluid cultures Specimen disposition: to lab Condition: stable Disposition: PACU HPI indication: Patient is a 45-year-old male with a past medical history of peptic ulcer disease who presented to the emergency room with 1-1/2-week of severe abdominal pain. The patient was found to have perforated viscus on CT scan with high clinical suspicion of a gastric ulcer perforation. On physical exam the patient was peritoneal and it was recommended that he undergo emergent exploratory laparotomy. This was discussed with the patient and all questions were answered. All risk benefits, alternatives to surgery were discussed. He was agreeable to proceed and consent obtained for exploratory laparotomy, possib le gastric resection, possible bowel resection, possible ostomy. Procedure in detail: The patient was identified in the preoperative area, taken back to the operating room and placed on the operating room table in supine position. After anesthesia was induced a Granado catheter was sterilely placed by the circulating nurse. The abdomen was prepped and draped in usual sterile fashion a timeout performed. A upper midline incision was made using a 10 blade. Dissection was carried down to the skin and subcutaneous tissue using Bovie electrocautery until the fascia was encountered. The fascia was grasped between 2 hemostats and scored using electrocautery. The peritoneum was then grasped between 2 hemostats and entered using Metzenbaum scissors. The incision was then completed over 2 gloved fingers in a cephalad and caudad direction using electrocautery. There was immediate drainage of dark gastric fluid. Cultures were obtained. There was a copious amount of fluid encountered in all 4 quadrants. This was intermixed with some semisolid gastric content. All of the fluid was aspirated. We then proceeded to examining the stomach. Immediately encountered was a 3 cm perforated ulcer of the anterior stomach in the mid body. There was severe inflammation, induration of the stomach body and lesser curve. The only areas not affected were the fundus and distal antrum. A biopsy of the ulcer was performed and sent for frozen section. Examination did not reveal malignant cells. There was also significant perigastric lymphadenopathy. A lymph node was dissected from the omentum using cautery and sent for frozen section. Examination revealed a reactive lymph node without malignant cells. At this point the decision was made to patch the ulcer. Due to the location and severe induration of the the entire body of the stomach, and extensive resection in this septic patient was felt to be unfavorable. The perforation was approximated with 3-0 silk full-thickness interrupted stitches. Once the entire ulcer was closed a tongue of omentum was brought up in between the tails of the sutures without tension. This omentum was tied down over the repair. An NG tube was placed by anesthesia and gently guided into the stomach and positioned in the mid body. No fluid was seen leaking from the area of the repair. At this point the abdomen was copiously irrigated with greater than 3 L of warm saline until all of the irrigant returned clear. A 19 F TATIANA drain was brought out through a stab incision in the right upper quadrant and positioned over the gastric repair. A second 19 Syrian TATIANA drain was brought out through a stab incision in the right lower abdomen and positioned in the pelvis. The drains were sutured to the skin using 2-0 nylon drain stitches and labeled. The fascia was then approximated using #1 PDS in a running fashion. Subcutaneous tissue was irrigated and the skin approximated using rajinder. The skin was cleansed and an island dressing was applied over the incision. Drain sponges were applied around the TATIANA drains and secured with Tegaderm. At the end of the case all sponge, instrument, sharp counts were correct x2. The patient was awoken from anesthesia, extubated, and taken to PACU in stable condition. The patient's brother was updated of his condition.
--- NOTE | 2020-08-19 18:45 | Event Note ---
Date: 08/19/20 I have seen and examined the patient at the bedside in [facility] this evening Patient's chart, medications, consultants recommendations and details of the procedures noted 45-year-old -[place] male patient with significant history of peptic ulcer disease was admitted through emergency room with severe abdominal pain CT abdomen and pelvis findings are consistent with perforated viscus/gastric ulcer perforation. Evaluated by general surgeon , and Patient underwent emergency -Exploratory laparotomy, -Peritoneal lavage -Omental patch repair of perforated gastric ulcer -Frozen section of perigastric lymph node and gastric ulcer -And peritoneal fluid cultures. At the time of my evaluation Patient is alert and awake, feels better complains of dryness of mouth wants some water Patient also complains of some abdominal pain and asking for pain medications. Patient is receiving IV fluids, IV pain medications, IV antibiotics Zosyn, antifungal Diflucan, Protonix drip. Surgery and ID input appreciated. Continue current postop care and medications We will closely monitor the patient and adjust the management as needed Plan of care reviewed with the patient and his nurse
[2020-08-19] MEDS: MORPHINE 4 MG/1 ML INJ IV PRN (20:04)
[2020-08-19 22:56] LABS: Bilirubin,Urine NEG (Negative); Blood,Urine MOD (Negative); Color,Urine Yellow (Yellow); Mucus,Urine FEW /HPF; Protein,Urine <15 mg/dL mg/dL (Negative); Urobilinogen,Urine < 2.0 mg/dL (<2.0)
[2020-08-19 23:04] LABS: Amphetamine Screen,Urine PRESUMPTIVE NEGATIVE; Benzodiazepines Screen,Urine PRESUMPTIVE POSITIVE; Cannabinoid Screen,Urine PRESUMPTIVE POSITIVE; Cocaine Screen,Urine PRESUMPTIVE NEGATIVE; Methadone Screen,Urine PRESUMPTIVE NEGATIVE; Opiate Screen,Urine PRESUMPTIVE NEGATIVE
[2020-08-20] MEDS: MORPHINE 4 MG/1 ML INJ IV PRN ×3 (02:14→17:48)
[2020-08-20 06:17] LABS: Basophils % (Auto) 0.1 % (0.0-1.8); Hematocrit 31.7 % (35.5-45.6); Hemoglobin 10.1 gm/dl (11.8-15.2); Lymphocytes # (Auto) 0.5 K/mm3 (1.2-5.4); Lymphocytes % (Auto) 4.7 % (13.4-35.0); Mean Corpuscular HGB Conc 32 % (32-34); Mean Corpuscular Volume 83 fl (84-94); Monocytes # (Auto) 0.6 K/mm3 (0.0-0.8); Monocytes % (Auto) 6.5 % (0.0-7.3); Platelet Count 383 K/mm3 (140-440); Red Blood Count 3.81 M/mm3 (3.65-5.03); Red Cell Distribution Width 15.9 % (13.2-15.2)
[2020-08-20 06:28] LABS: BUN/Creatinine Ratio 19; Blood Urea Nitrogen 15 mg/dL (9-20); Calcium 8.3 mg/dL (8.4-10.2); Hemolysis Index 0
[2020-08-20] MEDS: PIPERACIL/TAZOBACTA 4.5/NS 100 4.5 GM/100 ML VIAL IV SCH ×3 (08:51→23:35)
[2020-08-20] MEDS: PANTOPRAZOLE 80 MG in SODIUM CHLORIDE 0.9% 100 ML IV SCH ×2 (11:33→22:42)
--- NOTE | 2020-08-20 13:30 | Progress Note ---
Assessment and Plan Assessment and plan: Sepsis -Patient presented with hypotension, tachycardia, lactic acidosis and a perforated gastric ulcer -Antibiotic therapy -08/19 blood cultures x2 NGTD -Patient's disease consulted, patient recommendations Perforated gastric ulcer -08/19 CT abdomen/pelvis shows a large perforated gastric ulcer as suspected (large ulceration along the lesser curvature of the stomach measuring 4.2 x 1.9 cm) with free air, moderate to large fluid in the abdomen, probable sludge in the gallbladder, mild esophagitis in the proximal colon, 1.5 cm simple renal cyst -08/19 CXR shows no pneumothorax of significant pulmonary or pleural abnormality -S/p perforated gastric ulcer repair with surgery -Intra-Op findings: Greater than 1 L of gastric fluid throughout the abdomen with static gastric contact, 3 cm perforated ulcer mid body anterior stomach, severe inflammation of the stomach body and lesser curvature, reactive perigastric lymphadenopathy -N.p.o. -TATIANA drain x2 to the right abdomen -NG tube to LIS -MIVF -Antibiotic therapy -General surgery consulted, appreciate recommendations -Protonix drip -Supportive care Pneumoperitoneum -08/19 CT abdomen/pelvis shows a large perforated gastric ulcer as suspected (large ulceration along the lesser curvature of the stomach measuring 4.2 x 1.9 cm) with free air, moderate to large fluid in the abdomen, probable sludge in the gallbladder, mild esophagitis in the proximal colon, 1.5 cm simple renal cyst -Telemetry monitoring -General surgery consulted, appreciate recommendations -Intra-Op findings: Greater than 1 L of gastric fluid throughout the abdomen with static gastric contact, 3 cm perforated ulcer mid body anterior stomach, severe inflammation of the stomach body and lesser curvature, reactive perigastric lymphadenopathy -Supportive care PUD -Hx of PUD -s/p Protonix in the ED -Protonix gtt Hyperchloremia -Presented with hypochloremia likely secondary to vomiting -08/19 chloride 109, 08/20 chloride 107.7 -S/p normal saline bolus in the ED -MIVF -Trend BMP Hypotension -Patient presented with a systolic in the 50s which responded to fluid bolus -S/p 3 L IV -Blood pressure monitoring per protocol EtOH abuse -Ativan as needed for agitation/alcohol withdrawal -Assess CIWA protocol -Supportive care -Aspiration/seizure precautions Tobacco abuse -Tobacco cessation education -Consider transdermal nicotine patch while inpatient if needed Marijuana abuse -Marijuana use cessation education completed DVT prophylaxis -SCDs to bilateral LE while in bed Lactic acidosis, resolved -Presented with lactic of 3.4 -08/20 LA 0.90 -Trend lactic acid -S/p 3 L IV MIVF -MIVF Hypomagnesemia, resolved -Presented with magnesium of 1.6 -Repleted -Trend magnesium -08/19 Mg 2.2, 08/20 Mg 2 Thrombocytosis, resolved -Likely hemoconcentration -Presented with a platelet count of 537 -Trend CBC -08/19 Plt 393 Hospitalist Physical - Constitutional Vitals: Temp Pulse Resp BP Pulse Ox 99.1 F 80 17 113/67 95 08/20/20 12:00 08/20/20 11:20 08/20/20 11:20 08/20/20 11:20 08/20/20 11:20 General appearance: Present: no acute distress HEART Score - HEART Score Troponin: Troponin T < 0.010 ng/mL (0.00-0.029) 08/19/20 08:00 Results - Labs CBC & Chem 7: 08/20/20 05:24 08/20/20 05:24 Labs: Laboratory Last Values WBC 9.6 K/mm3 (4.5-11.0) 08/20/20 05:24 RBC 3.81 M/mm3 (3.65-5.03) 08/20/20 05:24 Hgb 10.1 gm/dl (11.8-15.2) L 08/20/20 05:24 Hct 31.7 % (35.5-45.6) L D 08/20/20 05:24 MCV 83 fl (84-94) L 08/20/20 05:24 MCH 27 pg (28-32) L 08/20/20 05:24 MCHC 32 % (32-34) 08/20/20 05:24 RDW 15.9 % (13.2-15.2) H 08/20/20 05:24 Plt Count 383 K/mm3 (140-440) 08/20/20 05:24 Lymph % (Auto) 4.7 % (13.4-35.0) L 08/20/20 05:24 [place] % (Auto) 6.5 % (0.0-7.3) 08/20/20 05:24 Eos % (Auto) 0.0 % (0.0-4.3) 08/20/20 05:24 Baso % (Auto) 0.1 % (0.0-1.8) 08/20/20 05:24 Lymph # (Auto) 0.5 K/mm3 (1.2-5.4) L 08/20/20 05:24 [place] # (Auto) 0.6 K/mm3 (0.0-0.8) 08/20/20 05:24 Eos # (Auto) 0.0 K/mm3 (0.0-0.4) 08/20/20 05:24 Baso # (Auto) 0.0 K/mm3 (0.0-0.1) 08/20/20 05:24 Seg Neutrophils % 88.7 % (40.0-70.0) H 08/20/20 05:24 Seg Neutrophils # 8.5 K/mm3 (1.8-7.7) H 08/20/20 05:24 Sodium 139 mmol/L (137-145) 08/20/20 05:24 Potassium 5.0 mmol/L (3.6-5.0) 08/20/20 05:24 Chloride 107.7 mmol/L (98-107) H 08/20/20 05:24 Carbon Dioxide 27 mmol/L (22-30) 08/20/20 05:24 Anion Gap 9 mmol/L 08/20/20 05:24 BUN 15 mg/dL (9-20) 08/20/20 05:24 Creatinine 0.8 mg/dL (0.8-1.3) 08/20/20 05:24 Estimated GFR > 60 ml/min 08/20/20 05:24 BUN/Creatinine Ratio 19 % 08/20/20 05:24 Glucose 96 mg/dL (75-100) 08/20/20 05:24 POC Glucose 76 mg/dL (70-105) 08/20/20 11:39 Lactic Acid 0.90 mmol/L (0.7-2.0) 08/20/20 05:24 Calcium 8.3 mg/dL (8.4-10.2) L 08/20/20 05:24 Phosphorus 3.40 mg/dL (2.5-4.5) 08/19/20 16:10 Magnesium 2.00 mg/dL (1.7-2.3) 08/20/20 05:24 Total Bilirubin 0.20 mg/dL (0.1-1.2) 08/19/20 05:56 AST 14 units/L (5-40) 08/19/20 05:56 ALT 10 units/L (7-56) 08/19/20 05:56 Alkaline Phosphatase 76 units/L (35-129) 08/19/20 05:56 Total Creatine Kinase 35 units/L (55-170) L 08/19/20 08:00 CK-MB (CK-2) < 1.0 ng/mL (0.0-4.0) 08/19/20 08:00 CK-MB (CK-2) Rel Index 2.8 (0-4) 08/19/20 08:00 Troponin T < 0.010 ng/mL (0.00-0.029) 08/19/20 08:00 Total Protein 7.2 g/dL (6.3-8.2) 08/19/20 05:56 Albumin 4.1 g/dL (3.9-5) 08/19/20 05:56 Albumin/Globulin Ratio 1.3 % 08/19/20 05:56 Lipase 32 units/L (13-60) 08/19/20 08:02 Procalcitonin 2.92 ng/mL (<0.15) 08/19/20 05:56 Urine Color Yellow (Yellow) 08/19/20 22:44 Urine Turbidity Clear (Clear) 08/19/20 22:44 Urine pH 5.0 (5.0-7.0) 08/19/20 22:44 Ur Specific [place] 1.024 (1.003-1.030) 08/19/20 22:44 Urine Protein <15 mg/dl mg/dL (Negative) 08/19/20 22:44 Urine Glucose (UA) Neg mg/dL (Negative) 08/19/20 22:44 Urine Ketones Neg mg/dL (Negative) 08/19/20 22:44 Urine Blood Mod (Negative) 08/19/20 22:44 Urine Nitrite Neg (Negative) 08/19/20 22:44 Urine Bilirubin Neg (Negative) 08/19/20 22:44 Urine Urobilinogen < 2.0 mg/dL (<2.0) 08/19/20 22:44 Ur Leukocyte Esterase Neg (Negative) 08/19/20 22:44 Urine WBC (Auto) 6.0 /HPF (0.0-6.0) 08/19/20 22:44 Urine RBC (Auto) 13.0 /HPF (0.0-6.0) 08/19/20 22:44 Urine Mucus Few /HPF 08/19/20 22:44 Urine Opiates Screen Presumptive negative 08/19/20 22:44 Urine Methadone Screen Presumptive negative 08/19/20 22:44 Ur Barbiturates Screen Presumptive negative 08/19/20 22:44 Ur Phencyclidine Scrn Presumptive negative 08/19/20 22:44 Ur Amphetamines Screen Presumptive negative 08/19/20 22:44 U Benzodiazepines Scrn Presumptive positive 08/19/20 22:44 Urine Cocaine Screen Presumptive negative 08/19/20 22:44 U Marijuana (THC) Screen Presumptive positive 08/19/20 22:44 Drugs of Abuse Note Disclamer 08/19/20 22:44 Blood Type B POSITIVE 08/19/20 08:47 Antibody Screen Negative 08/19/20 08:47 Microbiology: Microbiology 08/19/20 06:12 Peripheral/Venous Blood Culture - Preliminary NO GROWTH AFTER 24 HOURS 08/19/20 05:56 Peripheral/Venous Blood Culture - Preliminary NO GROWTH AFTER 24 HOURS Granado/IV: Voiding Method Indwelling Catheter Active Medications - Current Medications Current Medications: Generic Name Dose Route Start Last Admin Trade Name Freq PRN Reason Stop Dose Admin Pantoprazole Sodium 80 mg/ 100 mls @ 10 mls/hr 08/19/20 09:00 08/20/20 11:33 Sodium Chloride IV 8 mg/hr DIRECT SIOBHAN 10 mls/hr Administration 8 MG/HR Sodium Chloride 1,000 mls @ 125 mls/hr 08/19/20 09:00 08/19/20 23:29 Nacl 0.9% 1000 Ml IV 125 mls/hr DIRECT SIOBHAN Administration Piperacillin Sod/Tazobactam Sod 4.5 gm in 100 mls @ 200 mls/hr 08/19/20 16:00 08/20/20 08:51 Zosyn/Ns 4.5gm/100ml IV 200 mls/hr Q8H SIOBHAN Administration Protocol Fluconazole 200 mls @ 100 mls/hr 08/19/20 14:00 08/19/20 14:25 Diflucan IV 100 mls/hr Q24H SIOBHAN Administration Protocol Lorazepam 2 mg 08/19/20 16:52 Lorazepam 2 Mg/Ml Vial IV Q4H PRN Agitation Morphine Sulfate 4 mg 08/19/20 09:00 08/20/20 06:27 Morphine 4 Mg/1 Ml Inj IV 4 mg Q4H PRN Administration Pain , Severe (7-10) Morphine Sulfate 2 mg 08/19/20 11:16 Morphine 2 Mg/1 Ml Inj IV Q4H PRN Pain, Moderate (4-6) Naloxone HCl 0.1 mg 08/19/20 16:48 Naloxone 0.4 Mg/1 Ml Inj IV Q2MIN PRN Res Rate </= 8 or 02 SAT < 92% Ondansetron HCl 4 mg 08/19/20 09:00 Ondansetron 4 Mg/2 Ml Inj IV Q6H PRN Nausea And Vomiting Phenol 1 spray 08/19/20 13:22 Phenol 1.4% 177 Ml Bottle MM PRN PRN Sore Throat Sodium Chloride 10 ml 08/19/20 10:00 08/19/20 22:38 Sodium Chloride 0.9% 10 Ml Flush Syringe IV 10 ml BID SIOBHAN Administration Sodium Chloride 10 ml 08/19/20 09:00 Sodium Chloride 0.9% 10 Ml Flush Syringe IV PRN PRN LINE FLUSH
[2020-08-20] MEDS: FLUCONAZOLE 400 MG 200 ML IV SCH (14:22)
--- NOTE | 2020-08-20 15:44 | Consultation ---
History of Present Illness - Reason for Consult Consult date: 08/20/20 Pneumoperitoneum Requesting physician: ANNE MARIE MCCONNELL - History of Present Illness The patient is a 45-year-old male with peptic ulcer disease, tobacco abuse, alcohol use was admitted to the hospital with abdominal pain. CT abdomen and pelvis revealed pneumoperitoneum. Patient was seen by general surgery and on 08/19/2020 he underwent an exploratory laparotomy, omental patch repair of perforated gastric ulcer. In IMCU, remains on room air, afebrile Review of Systems: Per HPI Past History Past Medical History: other (Peptic ulcer disease) Past Surgical History: No surgical history Social history: single, lives with family, smoking, alcohol abuse, full code. denies: prescription drug abuse, IV drug use Family history: no significant family history Medications and Allergies Allergies Allergy/AdvReac Type Severity Reaction Status Date / Time No Known Allergies Allergy Unverified 09/18/18 16:28 Home Medications Medication Instructions Recorded Confirmed Last Taken Type Famotidine [Pepcid] 40 mg PO QHS #30 tablet 09/18/18 Unknown Rx Mag Hydrox/Aluminum Hyd/Simeth 15 ml PO Q6H #1 oral.susp 09/18/18 Unknown Rx [Maalox Advanced Suspension] Ondansetron (Nf) [Zofran TAB] 8 mg PO Q8HR #30 tablet 09/18/18 Unknown Rx Active Meds: Active Medications Pantoprazole Sodium 80 mg/ (Sodium Chloride) 100 mls @ 10 mls/hr IV DIRECT SIOBHAN Last Admin: 08/20/20 11:33 Dose: 8 mg/hr, 10 mls/hr Documented by: Sodium Chloride (Nacl 0.9% 1000 Ml) 1,000 mls @ 125 mls/hr IV DIRECT SIOBHAN Last Admin: 08/19/20 23:29 Dose: 125 mls/hr Documented by: Piperacillin Sod/Tazobactam Sod (Zosyn/Ns 4.5gm/100ml) 4.5 gm in 100 mls @ 200 mls/hr IV Q8H SIOBHAN; Protocol Last Admin: 08/20/20 08:51 Dose: 200 mls/hr Documented by: Fluconazole (Diflucan) 200 mls @ 100 mls/hr IV Q24H SIOBHAN; Protocol Last Admin: 08/19/20 14:25 Dose: 100 mls/hr Documented by: Lorazepam (Lorazepam 2 Mg/Ml Vial) 2 mg IV Q4H PRN PRN Reason: Agitation Morphine Sulfate (Morphine 4 Mg/1 Ml Inj) 4 mg IV Q4H PRN PRN Reason: Pain , Severe (7-10) Last Admin: 08/20/20 06:27 Dose: 4 mg Documented by: Morphine Sulfate (Morphine 2 Mg/1 Ml Inj) 2 mg IV Q4H PRN PRN Reason: Pain, Moderate (4-6) Naloxone HCl (Naloxone 0.4 Mg/1 Ml Inj) 0.1 mg IV Q2MIN PRN PRN Reason: Res Rate </= 8 or 02 SAT < 92% Ondansetron HCl (Ondansetron 4 Mg/2 Ml Inj) 4 mg IV Q6H PRN PRN Reason: Nausea And Vomiting Phenol (Phenol 1.4% 177 Ml Bottle) 1 spray MM PRN PRN PRN Reason: Sore Throat Sodium Chloride (Sodium Chloride 0.9% 10 Ml Flush Syringe) 10 ml IV BID SIOBHAN Last Admin: 08/19/20 22:38 Dose: 10 ml Documented by: Sodium Chloride (Sodium Chloride 0.9% 10 Ml Flush Syringe) 10 ml IV PRN PRN PRN Reason: LINE FLUSH Physical Examination - Physical Exam Narrative exam: Physical Exam: Constitutional: Alert, cooperative. No acute distress Head, Ears, Nose: Normocephalic, atraumatic. External ears, nose normal Eyes: Conjunctivae/corneas clear. No icterus. No ptosis. Neck: Supple, no meningeal signs Cardiovascular: S1, S2 normal. Respiratory: Good air entry, clear to auscultation bilaterally GI: Mild tenderness present, dressing + Musculoskeletal: No pedal edema, no cyanosis. Skin: No rash or abscess Hem/Lymphatic: No palpable cervical or supraclavicular nodes. No lymphangitis Psych: Mood ok. Affect normal Neurological: Awake, alert, oriented. No gross abnormality - Constitutional Vitals: Vital Signs Temp Pulse Resp BP Pulse Ox 99.1 F 80 17 113/67 95 08/20/20 12:00 08/20/20 11:20 08/20/20 11:20 08/20/20 11:20 08/20/20 11:20 Temperature -Last 24 Hours Temperature 99.1 F Temperature 99.0 F Temperature 99.6 F Temperature 98.8 F Temperature 98.2 F Temperature 98.2 F Temperature 97.4 F Results - Labs CBC & Chem 7: 08/20/20 05:24 08/20/20 05:24 Labs: Abnormal lab results 08/19/20 08/19/20 08/20/20 Range/Units 16:10 16:10 05:24 WBC 3.2 L (4.5-11.0) K/mm3 Hgb 10.1 L (11.8-15.2) gm/dl Hct 31.7 L D (35.5-45.6) % MCV 83 L 83 L (84-94) fl MCH 26 L 27 L (28-32) pg RDW 15.9 H 15.9 H (13.2-15.2) % Lymph % (Auto) 4.7 L (13.4-35.0) % Lymph # (Auto) 0.5 L (1.2-5.4) K/mm3 Seg Neutrophils % 88.7 H (40.0-70.0) % Seg Neutrophils # 8.5 H (1.8-7.7) K/mm3 Chloride 109.2 H (98-107) mmol/L Glucose 120 H (75-100) mg/dL Calcium 7.7 L D (8.4-10.2) mg/dL 08/20/20 Range/Units 05:24 WBC (4.5-11.0) K/mm3 Hgb (11.8-15.2) gm/dl Hct (35.5-45.6) % MCV (84-94) fl MCH (28-32) pg RDW (13.2-15.2) % Lymph % (Auto) (13.4-35.0) % Lymph # (Auto) (1.2-5.4) K/mm3 Seg Neutrophils % (40.0-70.0) % Seg Neutrophils # (1.8-7.7) K/mm3 Chloride 107.7 H (98-107) mmol/L Glucose (75-100) mg/dL Calcium 8.3 L (8.4-10.2) mg/dL - Imaging and Cardiology Chest x-ray: report reviewed, image reviewed Assessment and Plan Cultures: 08/19/2020 blood culture: No growth A/P: 45-year-old male with peptic ulcer disease, tobacco abuse, alcohol use was admitted to the hospital with abdominal pain. CT abdomen and pelvis revealed pneumoperitoneum: #Sepsis, perforated gastric ulcer, pneumoperitoneum, peritonitis: Status post exploratory laparotomy, omental patch repair of perforated gastric ulcer on 08/19/2020. Recs: -continue Zosyn, fluconazole x 3-5 days post operative depending on clinical course -f/u peritoneal cultures Jess Perrin MD, FACP [facility] ([facility]) O: [phone] F: [phone]
--- NOTE | 2020-08-20 15:55 | Progress Note ---
Assessment and Plan 45 yo M s/p exploratory laparotomy, peritoneal lavage, omental patch repair of perforated gastric ulcer, POD 1 Zacarias: 1900cc/24hr TATIANA RUQ (along stomach repair) - 300cc/24h serosang TATIANA RLQ (pelvis)- 540cc/24h serosang NGT - 250cc/24h bilious Plan: 1. NPO - strict 2. IVF - change to D5NS 3. IV abx per ID 4. prn pain control 5. continue NGT to LIWS 6. dc zacarias 7. OOB/ambulate - consult PT 8. IS/pulm toilet 9. repeat labs in am 10. TATIANA drain x2 to bulb suction 11. strict I/Os Ok to downgrade to 3B with remote tele from surgical standpoint Thank you. Please call with any questions or concerns. Subjective Date of service: 08/20/20 Narrative: Patient seen and examined. He states his pain is well controlled. No fevers or chills. No chest pain or shortness of breath. Objective Vital Signs - 12hr 08/20/20 08/20/20 08/20/20 04:00 04:10 04:20 Temperature 99.6 F Pulse Rate 84 81 76 Pulse Rate [ 83 From Monitor] Respiratory 17 16 14 Rate Blood Pressure 110/60 110/60 110/60 O2 Sat by Pulse 94 94 97 Oximetry 08/20/20 08/20/20 08/20/20 04:30 04:40 04:50 Temperature Pulse Rate 80 76 85 Pulse Rate [ From Monitor] Respiratory 14 14 13 Rate Blood Pressure 110/60 110/60 110/60 O2 Sat by Pulse 95 95 96 Oximetry 08/20/20 08/20/20 08/20/20 05:00 05:10 05:20 Temperature Pulse Rate 81 83 80 Pulse Rate [ From Monitor] Respiratory 17 17 17 Rate Blood Pressure 104/61 104/61 104/61 O2 Sat by Pulse 94 93 Oximetry 08/20/20 08/20/20 08/20/20 05:30 05:40 05:50 Temperature Pulse Rate 84 76 72 Pulse Rate [ From Monitor] Respiratory 27 H 24 17 Rate Blood Pressure 104/61 104/61 104/61 O2 Sat by Pulse 97 98 96 Oximetry 08/20/20 08/20/20 08/20/20 06:00 06:10 06:20 Temperature Pulse Rate 81 82 75 Pulse Rate [ From Monitor] Respiratory 14 21 11 L Rate Blood Pressure 103/63 103/63 103/63 O2 Sat by Pulse 96 98 94 Oximetry 08/20/20 08/20/20 08/20/20 06:27 06:30 06:40 Temperature Pulse Rate 79 83 Pulse Rate [ From Monitor] Respiratory 21 18 20 Rate Blood Pressure 105/52 113/68 O2 Sat by Pulse 96 93 Oximetry 08/20/20 08/20/20 08/20/20 06:50 07:00 07:10 Temperature 99.0 F Pulse Rate 86 80 84 Pulse Rate [ From Monitor] Respiratory 18 15 15 Rate Blood Pressure 113/68 108/66 108/66 O2 Sat by Pulse 92 93 Oximetry 08/20/20 08/20/20 08/20/20 07:20 07:30 07:40 Temperature Pulse Rate 80 76 80 Pulse Rate [ From Monitor] Respiratory 16 16 16 Rate Blood Pressure 108/66 108/66 108/66 O2 Sat by Pulse 94 94 94 Oximetry 08/20/20 08/20/20 08/20/20 07:50 08:00 08:05 Temperature Pulse Rate 81 86 Pulse Rate [ From Monitor] Respiratory 16 21 Rate Blood Pressure 108/66 118/71 O2 Sat by Pulse 94 96 97 Oximetry 08/20/20 08/20/20 08/20/20 08:10 08:20 08:30 Temperature Pulse Rate 75 77 77 Pulse Rate [ From Monitor] Respiratory 16 23 15 Rate Blood Pressure 118/71 118/71 118/71 O2 Sat by Pulse 95 95 95 Oximetry 08/20/20 08/20/20 08/20/20 08:40 08:50 09:00 Temperature Pulse Rate 86 80 77 Pulse Rate [ From Monitor] Respiratory 22 21 17 Rate Blood Pressure 118/71 118/71 110/68 O2 Sat by Pulse 96 96 94 Oximetry 08/20/20 08/20/20 08/20/20 09:10 09:20 09:30 Temperature Pulse Rate 83 81 85 Pulse Rate [ From Monitor] Respiratory 16 16 26 H Rate Blood Pressure 110/68 110/68 O2 Sat by Pulse 94 95 95 Oximetry 08/20/20 08/20/20 08/20/20 09:40 09:50 10:00 Temperature Pulse Rate 63 77 81 Pulse Rate [ From Monitor] Respiratory 17 21 18 Rate Blood Pressure 110/68 110/68 105/71 O2 Sat by Pulse 95 94 Oximetry 08/20/20 08/20/20 08/20/20 10:10 10:20 10:30 Temperature Pulse Rate 78 78 87 Pulse Rate [ From Monitor] Respiratory 15 17 29 H Rate Blood Pressure 105/71 105/71 105/71 O2 Sat by Pulse 94 94 96 Oximetry 08/20/20 08/20/20 08/20/20 10:40 10:50 11:00 Temperature Pulse Rate 75 77 81 Pulse Rate [ From Monitor] Respiratory 20 16 19 Rate Blood Pressure 105/71 105/71 113/67 O2 Sat by Pulse 95 94 95 Oximetry 08/20/20 08/20/20 08/20/20 11:10 11:20 12:00 Temperature 99.1 F Pulse Rate 83 80 Pulse Rate [ From Monitor] Respiratory 23 17 Rate Blood Pressure 113/67 113/67 O2 Sat by Pulse 92 95 Oximetry - General physical appearance Narrative Exam: Gen.: Awake, alert, oriented 3. No apparent distress ENT: NG tube in place with 250 cc of bilious drainage CV: S1, S2 present Respiratory: No audible wheezes Abdomen: Soft, nondistended, nontender. Midline dressing is clean, dry, intact. Right upper quadrant TATIANA drain is serosanguineous. Right lower quadrant TATIANA drain is serous with some purulent fluid in the tubing. The dressings are clean, dry, intact. No rebound, rigidity, guarding Extremities: No clubbing, cyanosis, edema : Zacarias with clear yellow urine - Labs 08/20/20 05:24 08/20/20 05:24 Diabetes panel 08/19/20 08/20/20 Range/Units 16:10 05:24 Sodium 140 139 (137-145) mmol/L Potassium 5.0 D 5.0 (3.6-5.0) mmol/L Chloride 109.2 H 107.7 H (98-107) mmol/L Carbon Dioxide 24 27 (22-30) mmol/L BUN 16 15 (9-20) mg/dL Creatinine 1.0 0.8 (0.8-1.3) mg/dL Glucose 120 H 96 (75-100) mg/dL Calcium 7.7 L D 8.3 L (8.4-10.2) mg/dL Calcium panel 08/19/20 08/20/20 Range/Units 16:10 05:24 Calcium 7.7 L D 8.3 L (8.4-10.2) mg/dL Phosphorus 3.40 (2.5-4.5) mg/dL Pituitary panel 08/19/20 08/20/20 Range/Units 16:10 05:24 Sodium 140 139 (137-145) mmol/L Potassium 5.0 D 5.0 (3.6-5.0) mmol/L Chloride 109.2 H 107.7 H (98-107) mmol/L Carbon Dioxide 24 27 (22-30) mmol/L BUN 16 15 (9-20) mg/dL Creatinine 1.0 0.8 (0.8-1.3) mg/dL Glucose 120 H 96 (75-100) mg/dL Calcium 7.7 L D 8.3 L (8.4-10.2) mg/dL Adrenal panel 08/19/20 08/20/20 Range/Units 16:10 05:24 Sodium 140 139 (137-145) mmol/L Potassium 5.0 D 5.0 (3.6-5.0) mmol/L Chloride 109.2 H 107.7 H (98-107) mmol/L Carbon Dioxide 24 27 (22-30) mmol/L BUN 16 15 (9-20) mg/dL Creatinine 1.0 0.8 (0.8-1.3) mg/dL Glucose 120 H 96 (75-100) mg/dL Calcium 7.7 L D 8.3 L (8.4-10.2) mg/dL
[2020-08-20] MEDS: D5W/0.9% NACL 1,000 ML IV SCH (17:49)
[2020-08-20] MEDS: MORPHINE 2 MG/1 ML INJ IV PRN (20:14)
[2020-08-21] MEDS: PANTOPRAZOLE 80 MG in SODIUM CHLORIDE 0.9% 100 ML IV SCH ×2 (03:16→13:19)
[2020-08-21] MEDS: MORPHINE 2 MG/1 ML INJ IV PRN (03:20)
[2020-08-21] MEDS: D5W/0.9% NACL 1,000 ML IV SCH ×2 (03:23→13:20)
[2020-08-21 05:06] LABS: Hematocrit 29.8 % (35.5-45.6); Hemoglobin 9.9 gm/dl (11.8-15.2); Mean Corpuscular HGB Conc 33 % (32-34); Mean Corpuscular Volume 81 fl (84-94); Platelet Count 377 K/mm3 (140-440); Red Cell Distribution Width 15.8 % (13.2-15.2)
[2020-08-21 05:24] LABS: BUN/Creatinine Ratio 15; Blood Urea Nitrogen 12 mg/dL (9-20); Calcium 8.8 mg/dL (8.4-10.2); Hemolysis Index 2
[2020-08-21] MEDS: MORPHINE 4 MG/1 ML INJ IV PRN ×3 (08:50→22:03)
[2020-08-21] MEDS: PIPERACIL/TAZOBACTA 4.5/NS 100 4.5 GM/100 ML VIAL IV SCH ×2 (08:51→16:47)
--- NOTE | 2020-08-21 10:34 | Progress Note ---
Assessment and Plan Assessment and plan: --Sepsis; due to perforated gastric ulcer Hypotension, tachycardia, lactic acidosis and a perforated gastric ulcer Continue Zosyn and Diflucan per ID, blood cultures x2 NGTD --Perforated gastric ulcer S/p perforated gastric ulcer repair with surgery Patient did not pass flatus TATIANA drain x2 to the right abdomen NG tube to LIS Protonix drip IV antibiotics IV fluids and supportive care Strict n.p.o. --History of PUD:Protonix --Significant drop in H&H; Hemoglobin 15.4-9.9 we will closely monitor Transfuse as needed --Hypomagnesemia; present on admission ,resolved --Reactive thrombocytosis; POA Now resolved, platelets normal range, will closely monitor --Hypotension; present on admission Resolved, continue IV fluids and supportive care --History of EtOH abuse: Patient has no tremulousness or agitation IV Ativan every 4 hours as needed as needed If any signs of alcohol withdrawal, we will initiate CIWA protocol --History of substance abuse: Tobacco and marijuana, Strongly advised to quit Smoking cessation counseling done, nicotine patch as needed --DVT prophylaxis; patient is postop state SCDs, defer to surgery to start anticoagulants for DVT prophylaxis Closely monitor the patient and adjust management as needed Plan of care reviewed with the patient and his nurse Surgery recommendations noted and appreciated History Interval history: I have seen and examined the patient at the bedside Patient's chart and medications reviewed Patient did not have flatus Denies nausea vomiting or abdominal pain N.p.o. status with NG tube To TATIANA drains draining well Afebrile, vital signs noted Hospitalist Physical - Constitutional Vitals: Temp Pulse Resp BP Pulse Ox 98.5 F 79 16 121/80 94 08/21/20 07:15 08/21/20 07:15 08/21/20 07:15 08/21/20 07:15 08/21/20 09:02 General appearance: Present: no acute distress, well-nourished - EENT Eyes: Present: PERRL, EOM intact - Neck Neck: Present: supple, normal ROM - Respiratory Respiratory effort: normal Respiratory: bilateral: diminished, negative: rales, rhonchi, wheezing - Cardiovascular Rhythm: regular Heart Sounds: Present: S1 & S2 - Extremities Extremities: no ischemia, No edema - Abdominal General gastrointestinal: soft, non-tender, absent bowel sounds - Integumentary Integumentary: Present: clear, warm - Psychiatric Psychiatric: appropriate mood/affect, cooperative - Neurologic Neurologic: moves all extremities HEART Score - HEART Score Troponin: Troponin T < 0.010 ng/mL (0.00-0.029) 08/19/20 08:00 Results - Labs CBC & Chem 7: 08/21/20 04:36 08/21/20 04:36 Labs: Laboratory Last Values WBC 8.6 K/mm3 (4.5-11.0) 08/21/20 04:36 RBC 3.70 M/mm3 (3.65-5.03) 08/21/20 04:36 Hgb 9.9 gm/dl (11.8-15.2) L 08/21/20 04:36 Hct 29.8 % (35.5-45.6) L 08/21/20 04:36 MCV 81 fl (84-94) L 08/21/20 04:36 MCH 27 pg (28-32) L 08/21/20 04:36 MCHC 33 % (32-34) 08/21/20 04:36 RDW 15.8 % (13.2-15.2) H 08/21/20 04:36 Plt Count 377 K/mm3 (140-440) 08/21/20 04:36 Lymph % (Auto) 4.7 % (13.4-35.0) L 08/20/20 05:24 [place] % (Auto) 6.5 % (0.0-7.3) 08/20/20 05:24 Eos % (Auto) 0.0 % (0.0-4.3) 08/20/20 05:24 Baso % (Auto) 0.1 % (0.0-1.8) 08/20/20 05:24 Lymph # (Auto) 0.5 K/mm3 (1.2-5.4) L 08/20/20 05:24 [place] # (Auto) 0.6 K/mm3 (0.0-0.8) 08/20/20 05:24 Eos # (Auto) 0.0 K/mm3 (0.0-0.4) 08/20/20 05:24 Baso # (Auto) 0.0 K/mm3 (0.0-0.1) 08/20/20 05:24 Seg Neutrophils % 88.7 % (40.0-70.0) H 08/20/20 05:24 Seg Neutrophils # 8.5 K/mm3 (1.8-7.7) H 08/20/20 05:24 Sodium 138 mmol/L (137-145) 08/21/20 04:36 Potassium 4.3 mmol/L (3.6-5.0) 08/21/20 04:36 Chloride 101.0 mmol/L (98-107) 08/21/20 04:36 Carbon Dioxide 27 mmol/L (22-30) 08/21/20 04:36 Anion Gap 14 mmol/L 08/21/20 04:36 BUN 12 mg/dL (9-20) 08/21/20 04:36 Creatinine 0.8 mg/dL (0.8-1.3) 08/21/20 04:36 Estimated GFR > 60 ml/min 08/21/20 04:36 BUN/Creatinine Ratio 15 % 08/21/20 04:36 Glucose 111 mg/dL (75-100) H 08/21/20 04:36 POC Glucose 94 mg/dL (70-105) 08/20/20 21:51 Lactic Acid 0.90 mmol/L (0.7-2.0) 08/20/20 05:24 Calcium 8.8 mg/dL (8.4-10.2) 08/21/20 04:36 Phosphorus 2.60 mg/dL (2.5-4.5) D 08/21/20 04:36 Magnesium 1.90 mg/dL (1.7-2.3) 08/21/20 04:36 Total Bilirubin 0.20 mg/dL (0.1-1.2) 08/19/20 05:56 AST 14 units/L (5-40) 08/19/20 05:56 ALT 10 units/L (7-56) 08/19/20 05:56 Alkaline Phosphatase 76 units/L (35-129) 08/19/20 05:56 Total Creatine Kinase 35 units/L (55-170) L 08/19/20 08:00 CK-MB (CK-2) < 1.0 ng/mL (0.0-4.0) 08/19/20 08:00 CK-MB (CK-2) Rel Index 2.8 (0-4) 08/19/20 08:00 Troponin T < 0.010 ng/mL (0.00-0.029) 08/19/20 08:00 Total Protein 7.2 g/dL (6.3-8.2) 08/19/20 05:56 Albumin 4.1 g/dL (3.9-5) 08/19/20 05:56 Albumin/Globulin Ratio 1.3 % 08/19/20 05:56 Lipase 32 units/L (13-60) 08/19/20 08:02 Procalcitonin 2.92 ng/mL (<0.15) 08/19/20 05:56 Urine Color Yellow (Yellow) 08/19/20 22:44 Urine Turbidity Clear (Clear) 08/19/20 22:44 Urine pH 5.0 (5.0-7.0) 08/19/20 22:44 Ur Specific [place] 1.024 (1.003-1.030) 08/19/20 22:44 Urine Protein <15 mg/dl mg/dL (Negative) 08/19/20 22:44 Urine Glucose (UA) Neg mg/dL (Negative) 08/19/20 22:44 Urine Ketones Neg mg/dL (Negative) 08/19/20 22:44 Urine Blood Mod (Negative) 08/19/20 22:44 Urine Nitrite Neg (Negative) 08/19/20 22:44 Urine Bilirubin Neg (Negative) 08/19/20 22:44 Urine Urobilinogen < 2.0 mg/dL (<2.0) 08/19/20 22:44 Ur Leukocyte Esterase Neg (Negative) 08/19/20 22:44 Urine WBC (Auto) 6.0 /HPF (0.0-6.0) 08/19/20 22:44 Urine RBC (Auto) 13.0 /HPF (0.0-6.0) 08/19/20 22:44 Urine Mucus Few /HPF 08/19/20 22:44 Urine Opiates Screen Presumptive negative 08/19/20 22:44 Urine Methadone Screen Presumptive negative 08/19/20 22:44 Ur Barbiturates Screen Presumptive negative 08/19/20 22:44 Ur Phencyclidine Scrn Presumptive negative 08/19/20 22:44 Ur Amphetamines Screen Presumptive negative 08/19/20 22:44 U Benzodiazepines Scrn Presumptive positive 08/19/20 22:44 Urine Cocaine Screen Presumptive negative 08/19/20 22:44 U Marijuana (THC) Screen Presumptive positive 08/19/20 22:44 Drugs of Abuse Note Disclamer 08/19/20 22:44 Blood Type B POSITIVE 08/19/20 08:47 Antibody Screen Negative 08/19/20 08:47 Microbiology: Microbiology 08/19/20 06:12 Peripheral/Venous Blood Culture - Preliminary NO GROWTH AFTER 48 HOURS 08/19/20 05:56 Peripheral/Venous Blood Culture - Preliminary NO GROWTH AFTER 48 HOURS 08/19/20 Unknown Peritoneal Fluid Surgical Culture - Preliminary Granado/IV: Voiding Method Urinal Active Medications - Current Medications Current Medications: Generic Name Dose Route Start Last Admin Trade Name Freq PRN Reason Stop Dose Admin Pantoprazole Sodium 80 mg/ 100 mls @ 10 mls/hr 08/19/20 09:00 08/21/20 03:16 Sodium Chloride IV 08/23/20 08:59 8 mg/hr DIRECT SIOBHAN 10 mls/hr Administration 8 MG/HR Piperacillin Sod/Tazobactam Sod 4.5 gm in 100 mls @ 200 mls/hr 08/19/20 16:00 08/21/20 08:51 Zosyn/Ns 4.5gm/100ml IV 200 mls/hr Q8H SIOBHAN Administration Protocol Fluconazole 200 mls @ 100 mls/hr 08/19/20 14:00 08/20/20 14:22 Diflucan IV 100 mls/hr Q24H SIOBHAN Administration Protocol Dextrose/Sodium Chloride 1,000 mls @ 125 mls/hr 08/20/20 16:00 08/21/20 03:23 D5ns IV 125 mls/hr DIRECT SIOBHAN Administration Lorazepam 2 mg 08/19/20 16:52 Lorazepam 2 Mg/Ml Vial IV Q4H PRN Agitation Morphine Sulfate 4 mg 08/19/20 09:00 08/21/20 08:50 Morphine 4 Mg/1 Ml Inj IV 4 mg Q4H PRN Administration Pain , Severe (7-10) Morphine Sulfate 2 mg 08/19/20 11:16 08/21/20 03:20 Morphine 2 Mg/1 Ml Inj IV 2 mg Q4H PRN Administration Pain, Moderate (4-6) Naloxone HCl 0.1 mg 08/19/20 16:48 Naloxone 0.4 Mg/1 Ml Inj IV Q2MIN PRN Res Rate </= 8 or 02 SAT < 92% Ondansetron HCl 4 mg 08/19/20 09:00 Ondansetron 4 Mg/2 Ml Inj IV Q6H PRN Nausea And Vomiting Pantoprazole Sodium 40 mg 08/23/20 22:00 Pantoprazole 40 Mg Inj IV BID SIOBHAN Phenol 1 spray 08/19/20 13:22 Phenol 1.4% 177 Ml Bottle MM PRN PRN Sore Throat Sodium Chloride 10 ml 08/19/20 10:00 08/21/20 09:15 Sodium Chloride 0.9% 10 Ml Flush Syringe IV Not Given BID SIOBHAN Sodium Chloride 10 ml 08/19/20 09:00 Sodium Chloride 0.9% 10 Ml Flush Syringe IV PRN PRN LINE FLUSH
--- NOTE | 2020-08-21 12:03 | Progress Note ---
Assessment and Plan 45 yo M s/p exploratory laparotomy, peritoneal lavage, omental patch repair of perforated gastric ulcer, POD 2 TATIANA RUQ (along stomach repair) - 170/24h serosang TATIANA RLQ (pelvis)- 350cc/24h serosang NGT - 600cc/24h bilious Plan: 1. NPO - strict 2. IVF - D5NS 3. IV abx per ID 4. prn pain control 5. continue NGT to LIWS 6. OOB/ambulate - consulted PT 7. IS/pulm toilet 8. repeat BMP In am 9. TATIANA drain x2 to bulb suction 10. strict I/Os 11. UGI on Sunday 12. continue PPI gtt -> will transition to PPI IV BID tomorrow Thank you. Please call with any questions or concerns. Subjective Date of service: 08/21/20 Narrative: Patient seen and examined. He has no acute complaints. His pain is well controlled. No nausea or vomiting. Afebrile. Objective Vital Signs - 12hr 08/21/20 08/21/20 08/21/20 04:24 07:15 09:02 Temperature 99.0 F 98.5 F Pulse Rate 79 79 Respiratory 18 16 Rate Blood Pressure 119/77 121/80 O2 Sat by Pulse 92 96 94 Oximetry 08/21/20 11:02 Temperature 98.6 F Pulse Rate 67 Respiratory 18 Rate Blood Pressure 130/68 O2 Sat by Pulse 97 Oximetry - General physical appearance Narrative Exam: Gen.: Awake, alert, oriented 3. No apparent distress ENT: NG tube bilious. Trachea midline. No lymphadenopathy. No scleral icterus or conjunctival pallor CV: S1, S2 present Respiratory: No audible wheezes Abdomen: Soft, nondistended, nontender. Midline dressing removed, incision clean, dry, intact with rajinder in place. Right upper quadrant TATIANA drain serosanguineous, right lower quadrant TATIANA drain serosanguineous. No rebound, rigidity, guarding Extremities: No clubbing, cyanosis, edema - Labs 08/21/20 04:36 08/21/20 04:36 Diabetes panel 08/21/20 Range/Units 04:36 Sodium 138 (137-145) mmol/L Potassium 4.3 (3.6-5.0) mmol/L Chloride 101.0 (98-107) mmol/L Carbon Dioxide 27 (22-30) mmol/L BUN 12 (9-20) mg/dL Creatinine 0.8 (0.8-1.3) mg/dL Glucose 111 H (75-100) mg/dL Calcium 8.8 (8.4-10.2) mg/dL Calcium panel 08/21/20 Range/Units 04:36 Calcium 8.8 (8.4-10.2) mg/dL Phosphorus 2.60 D (2.5-4.5) mg/dL Pituitary panel 08/21/20 Range/Units 04:36 Sodium 138 (137-145) mmol/L Potassium 4.3 (3.6-5.0) mmol/L Chloride 101.0 (98-107) mmol/L Carbon Dioxide 27 (22-30) mmol/L BUN 12 (9-20) mg/dL Creatinine 0.8 (0.8-1.3) mg/dL Glucose 111 H (75-100) mg/dL Calcium 8.8 (8.4-10.2) mg/dL Adrenal panel 08/21/20 Range/Units 04:36 Sodium 138 (137-145) mmol/L Potassium 4.3 (3.6-5.0) mmol/L Chloride 101.0 (98-107) mmol/L Carbon Dioxide 27 (22-30) mmol/L BUN 12 (9-20) mg/dL Creatinine 0.8 (0.8-1.3) mg/dL Glucose 111 H (75-100) mg/dL Calcium 8.8 (8.4-10.2) mg/dL
[2020-08-21] MEDS: FLUCONAZOLE 400 MG 200 ML IV SCH (13:19)
[2020-08-22] MEDS: D5W/0.9% NACL 1,000 ML IV SCH ×2 (00:04→10:14)
[2020-08-22] MEDS: PIPERACIL/TAZOBACTA 4.5/NS 100 4.5 GM/100 ML VIAL IV SCH ×3 (00:04→16:21)
[2020-08-22 06:17] LABS: Hematocrit 30.9 % (35.5-45.6)
[2020-08-22 06:44] LABS: Blood Urea Nitrogen 10 mg/dL (9-20); Calcium 8.8 mg/dL (8.4-10.2); Hemolysis Index 1
[2020-08-22 07:00] LABS: BUN/Creatinine Ratio 14
[2020-08-22] MEDS: MORPHINE 4 MG/1 ML INJ IV PRN ×2 (07:15→11:56)
[2020-08-22] MEDS: PANTOPRAZOLE 80 MG in SODIUM CHLORIDE 0.9% 100 ML IV SCH ×2 (08:23→16:20)
--- NOTE | 2020-08-22 08:29 | Progress Note ---
Assessment and Plan Assessment and plan: --Sepsis; due to perforated gastric ulcer Hypotension, tachycardia, lactic acidosis and a perforated gastric ulcer Continue Zosyn and Diflucan per ID, blood cultures x2 NGTD --Perforated gastric ulcer S/p perforated gastric ulcer repair with surgery Patient did not pass flatus TATIANA drain x2 to the right abdomen NG tube to LIS Protonix drip IV antibiotics IV fluids and supportive care Strict n.p.o. --History of PUD:Protonix --Significant drop in H&H; Hemoglobin 15.4-9.9 we will closely monitor Transfuse as needed --Hypomagnesemia; present on admission ,resolved --Reactive thrombocytosis; POA Now resolved, platelets normal range, will closely monitor --Hypotension; present on admission Resolved, continue IV fluids and supportive care --History of EtOH abuse: Patient has no tremulousness or agitation IV Ativan every 4 hours as needed as needed If any signs of alcohol withdrawal, we will initiate CIWA protocol --History of substance abuse: Tobacco and marijuana, Strongly advised to quit Smoking cessation counseling done, nicotine patch as needed --DVT prophylaxis; patient is postop state SCDs, defer to surgery to start anticoagulants for DVT prophylaxis Closely monitor the patient and adjust management as needed Plan of care reviewed with the patient and his nurse Surgery recommendations noted and appreciated 08/22/2020; patient did not have flatus, NG tube intermittent suction, gastric aspirate, 2 TATIANA drains draining well Absent bowel movements, continue n.p.o., supportive care, surgery following History Interval history: I have seen and examined the patient at the bedside this morning Patient's chart and medications reviewed Patient did not have flatus Vital signs noted N.p.o. status Intermittent suction with NG tube Hospitalist Physical - Constitutional Vitals: Temp Pulse Resp BP Pulse Ox 98.5 F 74 22 121/80 96 08/22/20 07:14 08/22/20 07:14 08/22/20 07:14 08/22/20 07:14 08/22/20 07:14 General appearance: Present: no acute distress, well-nourished - EENT Eyes: Present: PERRL, EOM intact ENT: other (NG tube intermittent suction gastric aspirate) - Neck Neck: Present: supple, normal ROM - Respiratory Respiratory effort: normal Respiratory: bilateral: diminished, rhonchi, negative: rales, wheezing - Cardiovascular Rhythm: regular Heart Sounds: Present: S1 & S2 - Extremities Extremities: no ischemia, No edema - Abdominal General gastrointestinal: soft, non-tender, non-distended, absent bowel sounds, other (2 TATIANA drains draining well) - Integumentary Integumentary: Present: clear, warm - Psychiatric Psychiatric: appropriate mood/affect, cooperative - Neurologic Neurologic: moves all extremities HEART Score - HEART Score Troponin: Troponin T < 0.010 ng/mL (0.00-0.029) 08/19/20 08:00 Results - Labs CBC & Chem 7: 08/22/20 04:47 08/22/20 04:47 Labs: Laboratory Last Values WBC 8.6 K/mm3 (4.5-11.0) 08/21/20 04:36 RBC 3.70 M/mm3 (3.65-5.03) 08/21/20 04:36 Hgb 10.0 gm/dl (11.8-15.2) L 08/22/20 04:47 Hct 30.9 % (35.5-45.6) L 08/22/20 04:47 MCV 81 fl (84-94) L 08/21/20 04:36 MCH 27 pg (28-32) L 08/21/20 04:36 MCHC 33 % (32-34) 08/21/20 04:36 RDW 15.8 % (13.2-15.2) H 08/21/20 04:36 Plt Count 377 K/mm3 (140-440) 08/21/20 04:36 Lymph % (Auto) 4.7 % (13.4-35.0) L 08/20/20 05:24 [place] % (Auto) 6.5 % (0.0-7.3) 08/20/20 05:24 Eos % (Auto) 0.0 % (0.0-4.3) 08/20/20 05:24 Baso % (Auto) 0.1 % (0.0-1.8) 08/20/20 05:24 Lymph # (Auto) 0.5 K/mm3 (1.2-5.4) L 08/20/20 05:24 [place]ess # (Auto) 0.6 K/mm3 (0.0-0.8) 08/20/20 05:24 Eos # (Auto) 0.0 K/mm3 (0.0-0.4) 08/20/20 05:24 Baso # (Auto) 0.0 K/mm3 (0.0-0.1) 08/20/20 05:24 Seg Neutrophils % 88.7 % (40.0-70.0) H 08/20/20 05:24 Seg Neutrophils # 8.5 K/mm3 (1.8-7.7) H 08/20/20 05:24 Sodium 141 mmol/L (137-145) 08/22/20 04:47 Potassium 3.8 mmol/L (3.6-5.0) 08/22/20 04:47 Chloride 103.8 mmol/L (98-107) 08/22/20 04:47 Carbon Dioxide 25 mmol/L (22-30) 08/22/20 04:47 Anion Gap 16 mmol/L 08/22/20 04:47 BUN 10 mg/dL (9-20) 08/22/20 04:47 Creatinine 0.7 mg/dL (0.8-1.3) L 08/22/20 04:47 Estimated GFR > 60 ml/min 08/22/20 04:47 BUN/Creatinine Ratio 14 % 08/22/20 04:47 Glucose 105 mg/dL (75-100) H 08/22/20 04:47 POC Glucose 111 mg/dL (70-105) H 08/22/20 06:19 Lactic Acid 0.90 mmol/L (0.7-2.0) 08/20/20 05:24 Calcium 8.8 mg/dL (8.4-10.2) 08/22/20 04:47 Phosphorus 2.60 mg/dL (2.5-4.5) D 08/21/20 04:36 Magnesium 1.90 mg/dL (1.7-2.3) 08/21/20 04:36 Total Bilirubin 0.20 mg/dL (0.1-1.2) 08/19/20 05:56 AST 14 units/L (5-40) 08/19/20 05:56 ALT 10 units/L (7-56) 08/19/20 05:56 Alkaline Phosphatase 76 units/L (35-129) 08/19/20 05:56 Total Creatine Kinase 35 units/L (55-170) L 08/19/20 08:00 CK-MB (CK-2) < 1.0 ng/mL (0.0-4.0) 08/19/20 08:00 CK-MB (CK-2) Rel Index 2.8 (0-4) 08/19/20 08:00 Troponin T < 0.010 ng/mL (0.00-0.029) 08/19/20 08:00 Total Protein 7.2 g/dL (6.3-8.2) 08/19/20 05:56 Albumin 4.1 g/dL (3.9-5) 08/19/20 05:56 Albumin/Globulin Ratio 1.3 % 08/19/20 05:56 Lipase 32 units/L (13-60) 08/19/20 08:02 Procalcitonin 2.92 ng/mL (<0.15) 08/19/20 05:56 Urine Color Yellow (Yellow) 08/19/20 22:44 Urine Turbidity Clear (Clear) 08/19/20 22:44 Urine pH 5.0 (5.0-7.0) 08/19/20 22:44 Ur Specific [place] 1.024 (1.003-1.030) 08/19/20 22:44 Urine Protein <15 mg/dl mg/dL (Negative) 08/19/20 22:44 Urine Glucose (UA) Neg mg/dL (Negative) 08/19/20 22:44 Urine Ketones Neg mg/dL (Negative) 08/19/20 22:44 Urine Blood Mod (Negative) 08/19/20 22:44 Urine Nitrite Neg (Negative) 08/19/20 22:44 Urine Bilirubin Neg (Negative) 08/19/20 22:44 Urine Urobilinogen < 2.0 mg/dL (<2.0) 08/19/20 22:44 Ur Leukocyte Esterase Neg (Negative) 08/19/20 22:44 Urine WBC (Auto) 6.0 /HPF (0.0-6.0) 08/19/20 22:44 Urine RBC (Auto) 13.0 /HPF (0.0-6.0) 08/19/20 22:44 Urine Mucus Few /HPF 08/19/20 22:44 Urine Opiates Screen Presumptive negative 08/19/20 22:44 Urine Methadone Screen Presumptive negative 08/19/20 22:44 Ur Barbiturates Screen Presumptive negative 08/19/20 22:44 Ur Phencyclidine Scrn Presumptive negative 08/19/20 22:44 Ur Amphetamines Screen Presumptive negative 08/19/20 22:44 U Benzodiazepines Scrn Presumptive positive 08/19/20 22:44 Urine Cocaine Screen Presumptive negative 08/19/20 22:44 U Marijuana (THC) Screen Presumptive positive 08/19/20 22:44 Drugs of Abuse Note Disclamer 08/19/20 22:44 Blood Type B POSITIVE 08/19/20 08:47 Antibody Screen Negative 08/19/20 08:47 Microbiology: Microbiology 08/19/20 06:12 Peripheral/Venous Blood Culture - Preliminary NO GROWTH AFTER 72 HOURS 08/19/20 05:56 Peripheral/Venous Blood Culture - Preliminary NO GROWTH AFTER 72 HOURS 08/19/20 Unknown Peritoneal Fluid Anaerobic Culture - Preliminary 08/19/20 Unknown Peritoneal Fluid Surgical Culture - Preliminary Granado/IV: Voiding Method Urinal Active Medications - Current Medications Current Medications: Generic Name Dose Route Start Last Admin Trade Name Freq PRN Reason Stop Dose Admin Pantoprazole Sodium 80 mg/ 100 mls @ 10 mls/hr 08/19/20 09:00 08/22/20 08:23 Sodium Chloride IV 08/23/20 08:59 8 mg/hr DIRECT SIOBHAN 10 mls/hr Administration 8 MG/HR Piperacillin Sod/Tazobactam Sod 4.5 gm in 100 mls @ 200 mls/hr 08/19/20 16:00 08/22/20 07:37 Zosyn/Ns 4.5gm/100ml IV 200 mls/hr Q8H SIOBHAN Administration Protocol Fluconazole 200 mls @ 100 mls/hr 08/19/20 14:00 08/21/20 21:22 Diflucan IV Infused Q24H SIOBHAN Infusion Protocol Dextrose/Sodium Chloride 1,000 mls @ 125 mls/hr 08/20/20 16:00 08/22/20 00:04 D5ns IV 125 mls/hr DIRECT SIOBHAN Administration Lorazepam 2 mg 08/19/20 16:52 08/22/20 00:06 Lorazepam 2 Mg/Ml Vial IV 2 mg Q4H PRN Administration Agitation Morphine Sulfate 4 mg 08/19/20 09:00 08/22/20 07:15 Morphine 4 Mg/1 Ml Inj IV 4 mg Q4H PRN Administration Pain , Severe (7-10) Morphine Sulfate 2 mg 08/19/20 11:16 08/21/20 03:20 Morphine 2 Mg/1 Ml Inj IV 2 mg Q4H PRN Administration Pain, Moderate (4-6) Naloxone HCl 0.1 mg 08/19/20 16:48 Naloxone 0.4 Mg/1 Ml Inj IV Q2MIN PRN Res Rate </= 8 or 02 SAT < 92% Ondansetron HCl 4 mg 08/19/20 09:00 08/21/20 22:09 Ondansetron 4 Mg/2 Ml Inj IV 4 mg Q6H PRN Administration Nausea And Vomiting Pantoprazole Sodium 40 mg 08/23/20 22:00 Pantoprazole 40 Mg Inj IV BID SIOBHAN Phenol 1 spray 08/19/20 13:22 Phenol 1.4% 177 Ml Bottle MM PRN PRN Sore Throat Sodium Chloride 10 ml 08/19/20 10:00 08/22/20 08:23 Sodium Chloride 0.9% 10 Ml Flush Syringe IV Not Given BID SIOBHAN Sodium Chloride 10 ml 08/19/20 09:00 Sodium Chloride 0.9% 10 Ml Flush Syringe IV PRN PRN LINE FLUSH
[2020-08-22] MEDS: FLUCONAZOLE 400 MG 200 ML IV SCH (14:20)
--- NOTE | 2020-08-22 15:18 | Progress Note ---
Assessment and Plan 45 yo M s/p exploratory laparotomy, peritoneal lavage, omental patch repair of perforated gastric ulcer, POD 3 TATIANA RUQ (along stomach repair) - 120/24h seroous TATIANA RLQ (pelvis)- 250cc/24h seroous NGT - 1500cc/24h gastric Pt stable. NGT drainage is now gastric. Both TATIANA drains are serous. Plan: 1. NPO - strict 2. IVF - D5NS 3. IV abx per ID 4. prn pain control 5. continue NGT to LIWS 6. OOB/ambulate 7. IS/pulm toilet 8. repeat BMP In am 9. TATIANA drain x2 to bulb suction 10. strict I/Os 11. UGI tomorrow - ordered 12. transition to PPI IV BID tomorrow Further recs pending results of UGI in am. Thank you. Please call with any questions or concerns. Subjective Date of service: 08/22/20 Narrative: Pt seen and examined. No complaints. Wants to eat. No f/c. Pain well controlled. Has been OOB independently. Objective Vital Signs - 12hr 08/22/20 08/22/20 08/22/20 05:08 07:14 10:52 Temperature 98.9 F 98.5 F 99.3 F Pulse Rate 73 74 83 Respiratory 18 22 18 Rate Blood Pressure 117/78 121/80 119/73 O2 Sat by Pulse 96 96 99 Oximetry - General physical appearance Narrative Exam: Gen.: Awake, alert, oriented 3. No apparent distress ENT: NG tube gastric. Trachea midline. No lymphadenopathy. No scleral icterus or conjunctival pallor CV: S1, S2 present Respiratory: No audible wheezes Abdomen: Soft, nondistended, nontender. Midline incision clean, dry, intact with rajinder in place. Right upper quadrant TATIANA drain and right lower quadrant TATIANA drain serous. No rebound, rigidity, guarding Extremities: No clubbing, cyanosis, edema - Labs 08/22/20 04:47 08/22/20 04:47 Diabetes panel 08/22/20 Range/Units 04:47 Sodium 141 (137-145) mmol/L Potassium 3.8 (3.6-5.0) mmol/L Chloride 103.8 (98-107) mmol/L Carbon Dioxide 25 (22-30) mmol/L BUN 10 (9-20) mg/dL Creatinine 0.7 L (0.8-1.3) mg/dL Glucose 105 H (75-100) mg/dL Calcium 8.8 (8.4-10.2) mg/dL Calcium panel 08/22/20 Range/Units 04:47 Calcium 8.8 (8.4-10.2) mg/dL Pituitary panel 08/22/20 Range/Units 04:47 Sodium 141 (137-145) mmol/L Potassium 3.8 (3.6-5.0) mmol/L Chloride 103.8 (98-107) mmol/L Carbon Dioxide 25 (22-30) mmol/L BUN 10 (9-20) mg/dL Creatinine 0.7 L (0.8-1.3) mg/dL Glucose 105 H (75-100) mg/dL Calcium 8.8 (8.4-10.2) mg/dL Adrenal panel 08/22/20 Range/Units 04:47 Sodium 141 (137-145) mmol/L Potassium 3.8 (3.6-5.0) mmol/L Chloride 103.8 (98-107) mmol/L Carbon Dioxide 25 (22-30) mmol/L BUN 10 (9-20) mg/dL Creatinine 0.7 L (0.8-1.3) mg/dL Glucose 105 H (75-100) mg/dL Calcium 8.8 (8.4-10.2) mg/dL
[2020-08-22] MEDS: MORPHINE 2 MG/1 ML INJ IV PRN ×2 (16:08→19:52)
[2020-08-22] MEDS: D5W/0.45% NACL/KCL 20 MEQ 20 MEQ/1,000 ML BAG IV SCH (16:08)
[2020-08-23] MEDS: PIPERACIL/TAZOBACTA 4.5/NS 100 4.5 GM/100 ML VIAL IV SCH ×3 (00:09→16:08)
[2020-08-23] MEDS: MORPHINE 4 MG/1 ML INJ IV PRN (00:09)
[2020-08-23] MEDS: PANTOPRAZOLE 80 MG in SODIUM CHLORIDE 0.9% 100 ML IV SCH (03:04)
[2020-08-23] MEDS: D5W/0.45% NACL/KCL 20 MEQ 20 MEQ/1,000 ML BAG IV SCH ×2 (03:09→21:03)
[2020-08-23] MEDS: MORPHINE 2 MG/1 ML INJ IV PRN ×3 (05:25→20:59)
--- NOTE | 2020-08-23 09:02 | Fluoroscopy Report ---
UPPER GI HISTORY: perf gastric ulcer s/p repair. TECHNIQUE: Single Gastrografin technique utilized to evaluate the stomach following perforated gastr ic ulcer surgery. COMPARISON: CT abdomen and pelvis 08/19/2020. FINDINGS: A modified examination was performed through the existing nasogastric tube using Gastrograf in. At the start of the examination, the nasogastric tube had to be retracted approximately 5 cm to o pacify the stomach. Approximately 240 cc of Gastrografin was injected via the nasogastric tube to opacify the stomach. Th ere is no evidence for obstruction. No extravasation of contrast is identified at the surgical site o n the lesser curvature of the stomach. Multiple proximal small bowel loops are unremarkable. IMPRESSION: Unremarkable exam. No evidence for obstruction or extravasation of contrast. Fluoroscopic time: 3.6 minutes Number of fluoroscopic images: 16 Signer Name: Baltazar Retana Jr, MD Signed: 08/23/2020 8:57 AM Workstation Name: [id number]
--- NOTE | 2020-08-23 12:21 | Progress Note ---
Assessment and Plan 45 yo M s/p exploratory laparotomy, peritoneal lavage, omental patch repair of perforated gastric ulcer, POD 4 TATIANA RUQ (along stomach repair) - 80/24h seroous TATIANA RLQ (pelvis)- 200cc/24h seroous NGT - 200cc/24h gastric UGI series - negative for leak or obstruction Pt stable. Plan: 1. dc NGT, start CLD - do not advance 2. dc IVF 3. IV abx per ID 4. prn pain control - add PO norco 5. OOB/ambulate 6. IS/pulm toilet 7. TATIANA drain Right upper to bulb suction. Tatiana drain RLQ/pelvic removed 8. strict I/Os 9. PPI IV BID Likely Dc planning tomorrow. Thank you. Please call with any questions or concerns. Subjective Date of service: 08/23/20 Narrative: Pt seen and examined. States he is ready to go home. He feels very well. No f/c. NGT was discontinued this am and he has tolerated clear liquids without difficulty. Incisional pain well controlled. He is ambulating on his own. Objective Vital Signs - 12hr 08/23/20 08/23/20 08/23/20 00:39 04:26 05:25 Temperature 98.1 F Pulse Rate 72 Respiratory 17 18 17 Rate Blood Pressure 123/79 O2 Sat by Pulse 98 Oximetry 08/23/20 05:55 Temperature Pulse Rate Respiratory 17 Rate Blood Pressure O2 Sat by Pulse Oximetry - General physical appearance Narrative Exam: Gen.: Awake, alert, oriented 3. No apparent distress ENT: NG tube gastric. Trachea midline. No lymphadenopathy. No scleral icterus or conjunctival pallor CV: S1, S2 present Respiratory: No audible wheezes Abdomen: Soft, nondistended, nontender. Midline incision clean, dry, intact with rajinder in place. Right upper quadrant TATIANA drain and right lower quadrant TATIANA drain serous. Dressings removed - suture on Right lower drain cut and drain taken off suction - drain removed intact. New dressings applied. No rebound, rigidity, guarding Extremities: No clubbing, cyanosis, edema - Labs 08/22/20 04:47 08/22/20 04:47
[2020-08-23] MEDS: FLUCONAZOLE 400 MG 200 ML IV SCH (13:48)
[2020-08-23] MEDS: HYDROcodone/ACETAMINOPHEN 5-325 MG TAB PO PRN (13:52)
--- NOTE | 2020-08-23 16:14 | Progress Note ---
Assessment and Plan Cultures: 08/19/2020 blood culture: No growth Peritoneal culture: No growth A/P: 45-year-old male with peptic ulcer disease, tobacco abuse, alcohol use was admitted to the hospital with abdominal pain. CT abdomen and pelvis revealed pneumoperitoneum: #Sepsis, perforated gastric ulcer, pneumoperitoneum, peritonitis: Status post exploratory laparotomy, omental patch repair of perforated gastric ulcer on 08/19/2020. Recs: -continue Zosyn, fluconazole x 3-5 days post operative depending on clinical course -Doing well, if discharging would send with Augmentin 875/125 mg every 12 hours and fluconazole 200 mg every 24 hours to complete 5 days postop G. Becky Samuel MD [facility] ([facility] O: [phone] F: [phone] Subjective Date of service: 08/23/20 Interval history: Afebrile, normal white count. All cultures remain negative at this point. Imaging personally reviewed: Upper GI series: Unremarkable. Objective - Exam Narrative Exam: Physical Exam: Constitutional: Alert, cooperative. No acute distress Head, Ears, Nose: Normocephalic, atraumatic. External ears, nose normal Eyes: Conjunctivae/corneas clear. No icterus. No ptosis. Neck: Supple, no meningeal signs Cardiovascular: S1, S2 normal. Respiratory: Good air entry, clear to auscultation bilaterally GI: Mild tenderness present, dressing + Musculoskeletal: No pedal edema, no cyanosis. Skin: No rash or abscess Hem/Lymphatic: No palpable cervical or supraclavicular nodes. No lymphangitis Psych: Mood ok. Affect normal Neurological: Awake, alert, oriented. No gross abnormality - Constitutional Vitals: Vital Signs Temp Pulse Resp BP Pulse Ox 97.4 F L 75 18 121/84 98 08/23/20 13:30 08/23/20 13:30 08/23/20 13:30 08/23/20 13:30 08/23/20 13:30 Temperature -Last 24 Hours Temperature 97.4 F Temperature 98.1 F Temperature 99.1 F Temperature 99.1 F - Labs CBC & Chem 7: 08/22/20 04:47 08/22/20 04:47
--- NOTE | 2020-08-23 18:06 | Progress Note ---
Assessment and Plan Assessment and plan: --Sepsis; due to perforated gastric ulcer Hypotension, tachycardia, lactic acidosis and a perforated gastric ulcer Continue Zosyn and Diflucan per ID, blood cultures x2 NGTD --Perforated gastric ulcer S/P-Exploratory laparotomy,-Peritoneal lavage -Omental patch repair of perforated gastric ulcer Postop care per surgeon per surgery 08/23/2020 upper GI series; no leak or obstruction Surgery discontinued NGT TATIANA drain right lower quadrant/pelvis removed clear liquid diet Ambulate as tolerated Possible discharge tomorrow if stable --History of PUD:Protonix --Significant drop in H&H; Hemoglobin 15.4-9.9 we will closely monitor --Hypomagnesemia; present on admission ,resolved --Reactive thrombocytosis; POA Now resolved, platelets normal range, will closely monitor --Hypotension; present on admission Resolved, continue IV fluids and supportive care --History of EtOH abuse: Patient has no tremulousness or agitation IV Ativan every 4 hours as needed as needed If any signs of alcohol withdrawal, we will initiate CIWA protocol --History of substance abuse: Tobacco and marijuana, Strongly advised to quit Smoking cessation counseling done, nicotine patch as needed --DVT prophylaxis; patient is postop state SCDs, defer to surgery to start anticoagulants for DVT prophylaxis Closely monitor the patient and adjust management as needed Plan of care reviewed with the patient and his nurse Surgery recommendations noted and appreciated 08/22/2020; patient did not have flatus, NG tube intermittent suction, gastric aspirate, 2 TATIANA drains draining well Absent bowel movements, continue n.p.o., supportive care, surgery following 08/23/2020; patient doing well started on clear liquids, NG tube removed, ambulate as tolerated, abdominal series no leak or obstruction, Possible discharge tomorrow if stable * History Interval history: I have seen and examined the patient at the bedside Patient feels better tolerated clear liquids Anxious to go home No new complaints vital signs stable Ambulating slowly Hospitalist Physical - Constitutional Vitals: Temp Pulse Resp BP Pulse Ox 97.4 F L 75 18 121/84 98 08/23/20 13:30 08/23/20 13:30 08/23/20 13:30 08/23/20 13:30 08/23/20 13:30 General appearance: Present: no acute distress, well-nourished - EENT Eyes: Present: PERRL, EOM intact - Neck Neck: Present: supple, normal ROM - Respiratory Respiratory effort: normal Respiratory: bilateral: diminished, negative: rales, rhonchi, wheezing - Cardiovascular Rhythm: regular Heart Sounds: Present: S1 & S2 - Extremities Extremities: no ischemia, No edema - Abdominal General gastrointestinal: soft, non-tender, non-distended, normal bowel sounds - Integumentary Integumentary: Present: clear, warm - Psychiatric Psychiatric: appropriate mood/affect, cooperative - Neurologic Neurologic: moves all extremities HEART Score - HEART Score Troponin: Troponin T < 0.010 ng/mL (0.00-0.029) 08/19/20 08:00 Results - Labs CBC & Chem 7: 08/22/20 04:47 08/22/20 04:47 Labs: Laboratory Last Values WBC 8.6 K/mm3 (4.5-11.0) 08/21/20 04:36 RBC 3.70 M/mm3 (3.65-5.03) 08/21/20 04:36 Hgb 10.0 gm/dl (11.8-15.2) L 08/22/20 04:47 Hct 30.9 % (35.5-45.6) L 08/22/20 04:47 MCV 81 fl (84-94) L 08/21/20 04:36 MCH 27 pg (28-32) L 08/21/20 04:36 MCHC 33 % (32-34) 08/21/20 04:36 RDW 15.8 % (13.2-15.2) H 08/21/20 04:36 Plt Count 377 K/mm3 (140-440) 08/21/20 04:36 Lymph % (Auto) 4.7 % (13.4-35.0) L 08/20/20 05:24 [place] % (Auto) 6.5 % (0.0-7.3) 08/20/20 05:24 Eos % (Auto) 0.0 % (0.0-4.3) 08/20/20 05:24 Baso % (Auto) 0.1 % (0.0-1.8) 08/20/20 05:24 Lymph # (Auto) 0.5 K/mm3 (1.2-5.4) L 08/20/20 05:24 [place] # (Auto) 0.6 K/mm3 (0.0-0.8) 08/20/20 05:24 Eos # (Auto) 0.0 K/mm3 (0.0-0.4) 08/20/20 05:24 Baso # (Auto) 0.0 K/mm3 (0.0-0.1) 08/20/20 05:24 Seg Neutrophils % 88.7 % (40.0-70.0) H 08/20/20 05:24 Seg Neutrophils # 8.5 K/mm3 (1.8-7.7) H 08/20/20 05:24 Sodium 141 mmol/L (137-145) 08/22/20 04:47 Potassium 3.8 mmol/L (3.6-5.0) 08/22/20 04:47 Chloride 103.8 mmol/L (98-107) 08/22/20 04:47 Carbon Dioxide 25 mmol/L (22-30) 08/22/20 04:47 Anion Gap 16 mmol/L 08/22/20 04:47 BUN 10 mg/dL (9-20) 08/22/20 04:47 Creatinine 0.7 mg/dL (0.8-1.3) L 08/22/20 04:47 Estimated GFR > 60 ml/min 08/22/20 04:47 BUN/Creatinine Ratio 14 % 08/22/20 04:47 Glucose 105 mg/dL (75-100) H 08/22/20 04:47 POC Glucose 102 mg/dL (70-105) 08/23/20 13:39 Lactic Acid 0.90 mmol/L (0.7-2.0) 08/20/20 05:24 Calcium 8.8 mg/dL (8.4-10.2) 08/22/20 04:47 Phosphorus 2.60 mg/dL (2.5-4.5) D 08/21/20 04:36 Magnesium 1.90 mg/dL (1.7-2.3) 08/21/20 04:36 Total Bilirubin 0.20 mg/dL (0.1-1.2) 08/19/20 05:56 AST 14 units/L (5-40) 08/19/20 05:56 ALT 10 units/L (7-56) 08/19/20 05:56 Alkaline Phosphatase 76 units/L (35-129) 08/19/20 05:56 Total Creatine Kinase 35 units/L (55-170) L 08/19/20 08:00 CK-MB (CK-2) < 1.0 ng/mL (0.0-4.0) 08/19/20 08:00 CK-MB (CK-2) Rel Index 2.8 (0-4) 08/19/20 08:00 Troponin T < 0.010 ng/mL (0.00-0.029) 08/19/20 08:00 Total Protein 7.2 g/dL (6.3-8.2) 08/19/20 05:56 Albumin 4.1 g/dL (3.9-5) 08/19/20 05:56 Albumin/Globulin Ratio 1.3 % 08/19/20 05:56 Lipase 32 units/L (13-60) 08/19/20 08:02 Procalcitonin 2.92 ng/mL (<0.15) 08/19/20 05:56 Urine Color Yellow (Yellow) 08/19/20 22:44 Urine Turbidity Clear (Clear) 08/19/20 22:44 Urine pH 5.0 (5.0-7.0) 08/19/20 22:44 Ur Specific [place] 1.024 (1.003-1.030) 08/19/20 22:44 Urine Protein <15 mg/dl mg/dL (Negative) 08/19/20 22:44 Urine Glucose (UA) Neg mg/dL (Negative) 08/19/20 22:44 Urine Ketones Neg mg/dL (Negative) 08/19/20 22:44 Urine Blood Mod (Negative) 08/19/20 22:44 Urine Nitrite Neg (Negative) 08/19/20 22:44 Urine Bilirubin Neg (Negative) 08/19/20 22:44 Urine Urobilinogen < 2.0 mg/dL (<2.0) 08/19/20 22:44 Ur Leukocyte Esterase Neg (Negative) 08/19/20 22:44 Urine WBC (Auto) 6.0 /HPF (0.0-6.0) 08/19/20 22:44 Urine RBC (Auto) 13.0 /HPF (0.0-6.0) 08/19/20 22:44 Urine Mucus Few /HPF 08/19/20 22:44 Urine Opiates Screen Presumptive negative 08/19/20 22:44 Urine Methadone Screen Presumptive negative 08/19/20 22:44 Ur Barbiturates Screen Presumptive negative 08/19/20 22:44 Ur Phencyclidine Scrn Presumptive negative 08/19/20 22:44 Ur Amphetamines Screen Presumptive negative 08/19/20 22:44 U Benzodiazepines Scrn Presumptive positive 08/19/20 22:44 Urine Cocaine Screen Presumptive negative 08/19/20 22:44 U Marijuana (THC) Screen Presumptive positive 08/19/20 22:44 Drugs of Abuse Note Disclamer 08/19/20 22:44 Blood Type B POSITIVE 08/19/20 08:47 Antibody Screen Negative 08/19/20 08:47 Microbiology: Microbiology 08/19/20 Unknown Peritoneal Fluid Anaerobic Culture - Final 08/19/20 06:12 Peripheral/Venous Blood Culture - Preliminary NO GROWTH AFTER 4 DAYS 08/19/20 05:56 Peripheral/Venous Blood Culture - Preliminary NO GROWTH AFTER 4 DAYS 08/19/20 Unknown Peritoneal Fluid Surgical Culture - Final [place]/IV: Voiding Method Urinal Active Medications - Current Medications Current Medications: Generic Name Dose Route Start Last Admin Trade Name Freq PRN Reason Stop Dose Admin Hydrocodone Bitart/Acetaminophen 1 each 08/23/20 12:21 08/23/20 13:52 Hydrocodone/Acetaminophen 5-325 Mg Tab PO 1 each Q4H PRN Administration Pain, Moderate (4-6) Piperacillin Sod/Tazobactam Sod 4.5 gm in 100 mls @ 200 mls/hr 08/19/20 16:00 08/23/20 16:08 Zosyn/Ns 4.5gm/100ml IV 200 mls/hr Q8H SIOBHAN Administration Protocol Fluconazole 200 mls @ 100 mls/hr 08/19/20 14:00 08/23/20 13:48 Diflucan IV 100 mls/hr Q24H SIOBHAN Administration Protocol Potassium Chloride/Dextrose/Sod Cl 20 meq in 1,000 mls @ 100 mls/hr 08/22/20 16:00 08/23/20 03:09 D5w/0.45% Nacl/Kcl 20 Meq IV 100 mls/hr DIRECT SIOBHAN Administration Lorazepam 2 mg 08/19/20 16:52 08/22/20 00:06 Lorazepam 2 Mg/Ml Vial IV 2 mg Q4H PRN Administration Agitation Morphine Sulfate 2 mg 08/19/20 11:16 08/23/20 09:21 Morphine 2 Mg/1 Ml Inj IV 2 mg Q4H PRN Administration Pain , Severe (7-10) Naloxone HCl 0.1 mg 08/19/20 16:48 Naloxone 0.4 Mg/1 Ml Inj IV Q2MIN PRN Res Rate </= 8 or 02 SAT < 92% Ondansetron HCl 4 mg 08/19/20 09:00 08/21/20 22:09 Ondansetron 4 Mg/2 Ml Inj IV 4 mg Q6H PRN Administration Nausea And Vomiting Pantoprazole Sodium 40 mg 08/23/20 22:00 Pantoprazole 40 Mg Inj IV BID SIOBHAN Phenol 1 spray 08/19/20 13:22 Phenol 1.4% 177 Ml Bottle MM PRN PRN Sore Throat Sodium Chloride 10 ml 08/19/20 10:00 08/23/20 13:45 Sodium Chloride 0.9% 10 Ml Flush Syringe IV Not Given BID SIOBHAN Sodium Chloride 10 ml 08/19/20 09:00 Sodium Chloride 0.9% 10 Ml Flush Syringe IV PRN PRN LINE FLUSH
[2020-08-23] MEDS: PANTOPRAZOLE 40 MG INJ IV SCH (21:00)
[2020-08-24] MEDS: PIPERACIL/TAZOBACTA 4.5/NS 100 4.5 GM/100 ML VIAL IV SCH ×2 (00:42→09:21)
[2020-08-24] MEDS ORDERED: SIMETHICONE 80 MG CHEW TAB PO PRN (02:25)
[2020-08-24] MEDS ORDERED: SIMETHICONE 80 MG CHEW TAB PO ONE (02:35)
[2020-08-24] MEDS: D5W/0.45% NACL/KCL 20 MEQ 20 MEQ/1,000 ML BAG IV SCH (06:34)
[2020-08-24] MEDS: HYDROcodone/ACETAMINOPHEN 5-325 MG TAB PO PRN (06:36)
[2020-08-24] MEDS: PANTOPRAZOLE 40 MG INJ IV SCH (09:25)
[2020-08-24 11:49] VITALS: BP 127/82
--- NOTE | 2020-08-24 12:25 | Progress Note ---
Assessment and Plan 45 yo M s/p exploratory laparotomy, peritoneal lavage, omental patch repair of perforated gastric ulcer, POD 5 TATIANA RUQ (along stomach repair) - 70cc/24hr serous UGI series - negative for leak or obstruction Plan: 1. continue CLD with supplements - will continue upon dc for 4 more days and then advance to full liquid diet 2. PPI BID 3. abx per ID 4. Tatiana drain removed 5. OOB/ambulate 6. prn PO pain control Ok to dc from surgery standpoint. Patient to follow up in surgery clinic in 10 days. The importance of taking PPI BID discussed along with avoiding all NSAIDS, asa, ibuprofen products. We also discussed continuing current diet and slowly advancing to fulls. He understands. Thank you. Please call with any questions or concerns. Subjective Date of service: 08/24/20 Narrative: Pt seen and examined. No complaints. Tolerating liquids. OOB on his own and ambulating. No f/c. Pain well controlled. Objective Vital Signs - 12hr 08/24/20 08/24/20 08/24/20 04:41 06:56 11:05 Temperature 97.9 F 98.6 F 98.8 F Pulse Rate 61 60 83 Respiratory 18 16 18 Rate Blood Pressure 127/70 128/75 127/82 O2 Sat by Pulse 97 99 100 Oximetry - General physical appearance Narrative Exam: Gen.: Awake, alert, oriented 3. No apparent distress ENT: Trachea midline. No lymphadenopathy. No scleral icterus or conjunctival pallor CV: S1, S2 present Respiratory: No audible wheezes Abdomen: Soft, nondistended, nontender. Midline incision clean, dry, intact with rajinder in place. Right upper quadrant TATIANA drain serous. Dressing removed - suture on drain cut and drain taken off suction - drain removed intact. New dressings applied. No rebound, rigidity, guarding Extremities: No clubbing, cyanosis, edema - Labs 08/22/20 04:47 08/22/20 04:47
--- NOTE | 2020-08-24 12:38 | Discharge Summary ---
<ANNE MARIE MCCONNELL - Last Filed: 08/24/20 12:52> Providers - Providers Date of Admission: 08/19/20 08:04 Attending physician: EDIN KENNEY 08/19/20 08:05 Consult to Physician [CONS] Stat Comment: Consulting Provider: ANNE MARIE MCCONNELL Physician Instructions: Reason For Exam: Perforated ulcer 08/19/20 11:23 Consult to Physician [CONS] Routine Comment: Consulting Provider: KATARZYNA DENNEY Physician Instructions: Reason For Exam: perforated gastric ulcer with sepsis 08/20/20 15:56 Physical Therapy Evaluation and Treat [CONS] Routine Comment: Reason For Exam: deconditioning, post p Primary care physician: DIRECTOR INDEX Hospitalization Condition: Stable Disposition: DC-30 STILL A PATIENT Exam - Constitutional Vitals: Temp Pulse Resp BP Pulse Ox 98.8 F 83 18 127/82 100 08/24/20 11:05 08/24/20 11:05 08/24/20 11:05 08/24/20 11:05 08/24/20 11:05 Plan Activity: other (No heavy lifting of greater than 15 lbs for next 6 weeks) Diet: clear liquids, other (Stay on clear liquids for next 4 days, then advance to full liquids like grits/oatmeal/pudding. ) Wound: open to air Follow up with: ANNE MARIE MCCONNELL DO [Staff Physician] - 10 Days PRIMARY CAREMD [Primary Care Provider] - 3-5 Days TIANNA FINN MD [Staff Physician] - 6 Weeks Prescriptions: HYDROcodone/APAP 5-325 [[place] 5-325 mg TAB] 1 each PO Q6H PRN #20 tablet PRN Reason: Pain , Severe (7-10) Pantoprazole [Protonix] 40 mg PO BID #60 tablet <EDIN KENNEY - Last Filed: 08/24/20 13:05> Providers - Providers Date of Admission: 08/19/20 08:04 Date of discharge: 08/24/20 Attending physician: EDIN KENNEY 08/19/20 08:05 Consult to Physician [CONS] Stat Comment: Consulting Provider: ANNE MARIE MCCONNELL Physician Instructions: Reason For Exam: Perforated ulcer 08/19/20 11:23 Consult to Physician [CONS] Routine Comment: Consulting Provider: DENNEY,KAIRAV J. Physician Instructions: Reason For Exam: perforated gastric ulcer with sepsis 08/20/20 15:56 Physical Therapy Evaluation and Treat [CONS] Routine Comment: Reason For Exam: deconditioning, post p Primary care physician: DIRECTOR INDEX Core Measure Documentation - Palliative Care Palliative Care/ Comfort Measures: Not Applicable Exam - Constitutional Vitals: Temp Pulse Resp BP Pulse Ox 98.8 F 83 18 127/82 100 08/24/20 11:05 08/24/20 11:05 08/24/20 11:05 08/24/20 11:05 08/24/20 11:05 Plan Activity: other Additional Instructions: Advised to continue CLD with supplements for 4 more days and then advance to full liquid diet. Protonix twice a day. Avoid aspirin, ibuprofen, NSAID group of pain medications. Do not lift heavy weights for 6 weeks. Ambulate as tolerated. follow up in surgery clinic in 10 days.
--- NOTE | 2020-08-24 12:58 | Progress Note ---
Assessment and Plan Cultures: 08/19/2020 blood culture: No growth Peritoneal culture: No growth A/P: 45-year-old male with peptic ulcer disease, tobacco abuse, alcohol use was admitted to the hospital with abdominal pain. CT abdomen and pelvis revealed pneumoperitoneum: #Sepsis, perforated gastric ulcer, pneumoperitoneum, peritonitis: Status post exploratory laparotomy, omental patch repair of perforated gastric ulcer on 08/19/2020. Recs: -continue Zosyn, fluconazole x 3-5 days post operative depending on clinical course -Doing well, if discharging would send with Augmentin 875/125 mg every 12 hours and fluconazole 200 mg every 24 hours to complete 5 days postop GDina Samuel MD [facility] O: [phone] F: [phone] Subjective Date of service: 08/24/20 Interval history: Afebrile, no acute changes. Objective - Exam Narrative Exam: Physical Exam: Constitutional: Alert, cooperative. No acute distress Head, Ears, Nose: Normocephalic, atraumatic. External ears, nose normal Eyes: Conjunctivae/corneas clear. No icterus. No ptosis. Neck: Supple, no meningeal signs Cardiovascular: S1, S2 normal. Respiratory: Good air entry, clear to auscultation bilaterally GI: Mild tenderness present, dressing + Musculoskeletal: No pedal edema, no cyanosis. Skin: No rash or abscess Hem/Lymphatic: No palpable cervical or supraclavicular nodes. No lymphangitis Psych: Mood ok. Affect normal Neurological: Awake, alert, oriented. No gross abnormality - Constitutional Vitals: Vital Signs Temp Pulse Resp BP Pulse Ox 98.8 F 83 18 127/82 100 08/24/20 11:05 08/24/20 11:05 08/24/20 11:05 08/24/20 11:05 08/24/20 11:05 Temperature -Last 24 Hours Temperature 98.8 F Temperature 98.6 F Temperature 97.9 F Temperature 98.7 F Temperature 98.4 F Temperature 97.4 F Temperature 97.4 F - Labs CBC & Chem 7: 08/22/20 04:47 08/22/20 04:47
== END 2020-08-24 13:35 | disposition home or self-care (01) | DRG 853 ==
LOC: ED 05:24 → IMCU 08:04 → 3B 08-20 21:46
PROVIDERS: ADMIT Internal Medicine; ATTEND Internal Medicine
PROC: 0DJ60ZZ Inspection of Stomach, Open Approach (ICD-10-PCS; principal; 2020-08-19)
PROC: 0DQ60ZZ Repair Stomach, Open Approach (ICD-10-PCS; 2020-08-19)
PROC: 3E1M38Z Irrigation of Peritoneal Cavity using Irrigating Substance, Percutaneous Approach (ICD-10-PCS; 2020-08-19)
DX: A41.9 Sepsis, unspecified organism (principal); K25.1 Acute gastric ulcer with perforation; K65.9 Peritonitis, unspecified; F17.200 Nicotine dependence, unspecified, uncomplicated; F10.10 Alcohol abuse, uncomplicated; I95.9 Hypotension, unspecified; E83.42 Hypomagnesemia; E87.8 Other disorders of electrolyte and fluid balance, not elsewhere classified; D47.3 Essential (hemorrhagic) thrombocythemia; Z79.899 Other long term (current) drug therapy; Z87.11 Personal history of peptic ulcer disease
CPT/HCPCS: 36415; 71045; 74018; 74177; 74240; 80048; 80053; 80307; 81001; 82140; 82550; 82553; 82962; 83690; 83735; 84100; 84145; 84484; 85014; 85018; 85025; 85027; 86850; 86900; 86901; 87040; 87075; 87116; 88305; 88331; 93005; 96365; 96366; 96375; 99292; 99406; G0378; C9113; J0330; J1100; J1170; J1450; J2060; J2250; J2270; J2370; J2405; J2543; J2704; J2710; J3010; J3475; J7030; J7042; J7120; Q9963; Q9967

== ENCOUNTER 2020-09-08 19:04 | Emergency (ER) | payer SELFPAY ==
[2020-09-08] MEDS ORDERED: MORPHINE 4 MG/1 ML INJ IV ONE (19:33)
[2020-09-08] MEDS ORDERED: SODIUM CHLORIDE 0.9% 1000 ML 1,000 ML IV ONE (19:33)
[2020-09-08] MEDS ORDERED: ONDANSETRON 4 MG/2 ML INJ IV ONE (19:33)
--- NOTE | 2020-09-08 19:40 | Emergency Department Report ---
ED Abdominal Pain HPI - General Chief Complaint: Abdominal Pain Stated Complaint: ABD PAIN Time Seen by Provider: 09/08/20 19:33 Source: patient Mode of arrival: Ambulatory Limitations: No Limitations - History of Present Illness Initial Comments: Patient is a 45-year-old male presents emergency room with complaints of generalized abdominal pain that began yesterday but worsened today. He states he began having nausea and vomiting today. He states that he has not had a bowel movement in 2 days. He denies any diarrhea, fever, urinary symptoms, pain or swelling the testicles, hematochezia, melena, hematemesis. Patient was evaluated emergency department on 08/19/2020 and was found to have a perforated ulcer at that time and underwent surgery. He states today he had a follow-up appointment with Dr. Mcconnell and was prescribed some medication for abdominal pain but he is not sure what he took but states he presents to the ER due to continued worsening abdominal pain. He denies any other past medical history. He denies any medication allergies. He denies any other past surgical history. - Related Data Previous Rx's Medication Instructions Recorded Last Taken Type Ondansetron (Nf) [Zofran TAB] 8 mg PO Q8HR #30 tablet 09/18/18 Unknown Rx HYDROcodone/APAP 5-325 [[place] 1 each PO Q6H PRN #20 tablet 08/24/20 Unknown Rx 5-325 mg TAB] Mag Hydrox/Aluminum Hyd/Simeth 15 ml PO Q6H #1 oral.susp 09/08/20 Unknown Rx [Maalox Advanced Suspension] Ondansetron [Zofran Odt] 4 mg PO Q8HR PRN #10 tab.rapdis 09/08/20 Unknown Rx Pantoprazole [Protonix TAB] 40 mg PO BID #60 tablet 09/08/20 Unknown Rx traMADoL [Ultram 50 MG tab] 50 mg PO Q6HR PRN #10 tablet 09/08/20 Unknown Rx Allergies Allergy/AdvReac Type Severity Reaction Status Date / Time No Known Allergies Allergy Unverified 09/18/18 16:28 ED Review of Systems ROS: Stated complaint: ABD PAIN Other details as noted in HPI Comment: All other systems reviewed and negative ED Past Medical Hx - Past Medical History Hx Hypertension: Yes Hx Heart Attack/AMI: No Hx Liver Disease: No Hx Renal Disease: No Hx Sickle Cell Disease: No Hx Seizures: No Hx Asthma: No Hx COPD: No - Surgical History Hx Pacemaker: No Hx Internal Defibrillator: No Additional Surgical History: perforated ulcer - Social History Smoking Status: Current Every Day Smoker - Medications Home Medications: Home Medications Medication Instructions Recorded Confirmed Last Taken Type Ondansetron (Nf) [Zofran TAB] 8 mg PO Q8HR #30 tablet 09/18/18 08/20/20 Unknown Rx HYDROcodone/APAP 5-325 [[place] 1 each PO Q6H PRN #20 tablet 08/24/20 Unknown Rx 5-325 mg TAB] Mag Hydrox/Aluminum Hyd/Simeth 15 ml PO Q6H #1 oral.susp 09/08/20 Unknown Rx [Maalox Advanced Suspension] Ondansetron [Zofran Odt] 4 mg PO Q8HR PRN #10 tab.rapdis 09/08/20 Unknown Rx Pantoprazole [Protonix TAB] 40 mg PO BID #60 tablet 09/08/20 Unknown Rx traMADoL [Ultram 50 MG tab] 50 mg PO Q6HR PRN #10 tablet 09/08/20 Unknown Rx ED Physical Exam - General Limitations: No Limitations General appearance: alert, in no apparent distress - Head Head exam: Present: atraumatic, normocephalic - Eye Eye exam: Present: normal appearance - ENT ENT exam: Present: mucous membranes moist - Respiratory Respiratory exam: Present: normal lung sounds bilaterally. Absent: respiratory distress, wheezes, rales, rhonchi, stridor, chest wall tenderness, accessory muscle use, decreased breath sounds, prolonged expiratory - Cardiovascular Cardiovascular Exam: Present: regular rate, normal rhythm, normal heart sounds. Absent: systolic murmur, diastolic murmur, rubs, gallop - GI/Abdominal GI/Abdominal exam: Present: soft, tenderness (mild periumbilical ), normal bowel sounds, other (healing midline surgical abdominal incision, no signs of infection, appears clean,dry, intact). Absent: distended, guarding, rebound, rigid - Neurological Exam Neurological exam: Present: alert, oriented X3 - Psychiatric Psychiatric exam: Present: normal affect, normal mood - Skin Skin exam: Present: warm, dry, intact ED Course Vital Signs 09/08/20 09/08/20 09/08/20 19:30 20:44 21:14 Temperature 98.2 F Pulse Rate 65 Respiratory 18 18 18 Rate Blood Pressure 135/62 Blood Pressure [Left] O2 Sat by Pulse 100 Oximetry 09/08/20 09/08/20 09/08/20 21:20 22:16 22:20 Temperature 97.8 F Pulse Rate 58 L 59 L Respiratory 18 18 18 Rate Blood Pressure Blood Pressure 149/68 128/82 [Left] O2 Sat by Pulse 99 99 Oximetry ED Medical Decision Making - Lab Data Result diagrams: 09/08/20 19:39 09/08/20 19:39 Lab Results 09/08/20 09/08/20 Range/Units 19:39 19:39 WBC 6.0 (4.5-11.0) K/mm3 RBC 4.07 (3.65-5.03) M/mm3 Hgb 10.5 L (11.8-15.2) gm/dl Hct 32.1 L (35.5-45.6) % MCV 79 L (84-94) fl MCH 26 L (28-32) pg MCHC 33 (32-34) % RDW 16.2 H (13.2-15.2) % Plt Count 593 H (140-440) K/mm3 Lymph % (Auto) 16.4 (13.4-35.0) % Sharkey % (Auto) 10.5 H (0.0-7.3) % Eos % (Auto) 2.2 (0.0-4.3) % Baso % (Auto) 1.0 (0.0-1.8) % Lymph # (Auto) 1.0 L (1.2-5.4) K/mm3 Sharkey # (Auto) 0.6 (0.0-0.8) K/mm3 Eos # (Auto) 0.1 (0.0-0.4) K/mm3 Baso # (Auto) 0.1 (0.0-0.1) K/mm3 Seg Neutrophils % 69.9 (40.0-70.0) % Seg Neutrophils # 4.2 (1.8-7.7) K/mm3 Sodium 135 L (137-145) mmol/L Potassium 4.0 (3.6-5.0) mmol/L Chloride 97.8 L (98-107) mmol/L Carbon Dioxide 29 (22-30) mmol/L Anion Gap 12 mmol/L BUN 10 (9-20) mg/dL Creatinine 0.6 L (0.8-1.3) mg/dL Estimated GFR > 60 ml/min BUN/Creatinine Ratio 17 % Glucose 94 (75-100) mg/dL Calcium 9.3 (8.4-10.2) mg/dL Total Bilirubin 0.20 (0.1-1.2) mg/dL AST 11 (5-40) units/L ALT 25 (7-56) units/L Alkaline Phosphatase 100 (35-129) units/L Total Protein 6.4 (6.3-8.2) g/dL Albumin 3.3 L (3.9-5) g/dL Albumin/Globulin Ratio 1.1 % Lipase 34 (13-60) units/L - Radiology Data Radiology results: report reviewed Ordering Physician: MORRIS CONTRERAS Date of Service: 09/08/20 Procedure(s): CT abdomen pelvis w con Accession Number(s): [id number] cc: MORRIS CONTRERAS CT ABDOMEN AND PELVIS WITH CONTRAST INDICATION / CLINICAL INFORMATION: abd pain, n/v, recent abd surgery. TECHNIQUE: Axial CT images were obtained through the abdomen and pelvis after 100 cc Omni [address] scans at this location are performed using CT dose reduction for ALARA by means of automated exposure control. COMPARISON: 08/19/2020 CT abdomen pelvis FINDINGS: LOWER CHEST: No significant abnormality. HEPATOBILIARY: No significant abnormality. PANCREAS/SPLEEN/ADRENALS: No significant abnormality. GENITOURINARY: Unchanged appearance with small right renal cysts. No obstructiv e uropathy. Moderate bladder distention. GASTROINTESTINAL/MESENTERY: Poor delineation of bowel structures secondary to lack of enteric contrast and mild diffuse free fluid. No bowel obstruction is evident. Stomach is moderately distended and demonstrates persistent, diffuse wall thickening similar when compared to the prior examination. No definite ulceration is visualized on today's examination. There is a small outpouching in the region of the previously described gastric ulcer along the lesser curvature. No evidence of perforation. No significant free air is noted. RETROPERITONEUM: No significant adenopathy. REPRODUCTIVE ORGANS: No significant abnormality. VASCULAR: No significant abnormality. BODY WALL: No significant abnormality. SKELETAL SYSTEM: No significant abnormality. IMPRESSION: 1. Postoperative change from prior gastric ulcer repair noting a small outpouching in the reason of the previously described gastric ulcer. No evidence of perforation. Diffuse gastric wall thickening is overall stable and could represent gastritis. 2. Mild diffuse abdominopelvic free fluid. 3. Additional findings as above. Signer Name: Charles Loving MD Signed: 09/08/2020 9:53 PM Workstation Name: [id number] Transcribed By: Dictated By: CHARLES LOVING III Electronically Authenticated By: CHARLES LOVING III Signed Date/Time: 09/08/202152 DD/ 41 TD/TT: - Medical Decision Making Patient is a 45-year-old male presents emergency room with complaints of generalized abdominal pain that began yesterday but worsened today. He states he began having nausea and vomiting today. He states that he has not had a bowel movement in 2 days. He denies any diarrhea, fever, urinary symptoms, pain or swelling the testicles, hematochezia, melena, hematemesis. Patient was evaluated emergency department on 08/19/2020 and was found to have a perforated ulcer at that time and underwent surgery. He states today he had a follow-up appointment with Dr. Mcconnell and was prescribed some medication for abdominal pain but he is not sure what he took but states he presents to the ER due to continued worsening abdominal pain. He denies any other past medical history. He denies any medication allergies. He denies any other past surgical history. Vitals are stable. On exam:mild periumbilical , healing midline surgical abdominal incision, no signs of infection, appears clean,dry, intact, no distention, no guarding, no rebound, no rigidity, no peritoneal signs. Labs are stable. CT abdomen pelvis with IV contrast: 1. Postoperative change from prior gastric ulcer repair noting a small outpouching in the reason ofthe previously described gastric ulcer. No evidence of perforation. Diffuse gastric wall thickening is overall stable and could represent gastritis. 2. Mild diffu se abdominopelvic free fluid. 3. Additional findings as above. Patient given medications on the emergency department and symptoms improved and he is feeling much better when to go home. Patient was able to tolerate p.o. intake while in the emergency department and had no episodes of vomiting. He has bowel sounds on exam. Discussed all results with patient and answered questions. Discussed the importance of GI follow-up, he states he has an upcoming appointment in October 2020. Patient given prescription for Maalox, Protonix, tramadol, Zofran. Advised patient please take medication as prescribed. do not drive or operate heavy machinery while taking severe pain medication. increase water intake. eat a bland liquid diet and slowly advance diet as tolerated. follow up with a primary care doctor. follow up with a GI doctor. follow up with your general surgeon. return to the emergency room for any new or worsening symptoms. - Differential Diagnosis Ileus, obstruction, gastritis, PUD, enteritis, abscess, postop complication Critical care attestation.: If time is entered above; I have spent that time in minutes in the direct care o f this critically ill patient, excluding procedure time. ED Disposition Clinical Impression: Abdominal pain Qualifiers: Abdominal location: periumbilical Qualified Code(s): R10.33 - Periumbilical pain Gastritis Qualifiers: Gastritis type: unspecified gastritis Chronicity: acute Gastritis bleeding: without bleeding Qualified Code(s): K29.00 - Acute gastritis without bleeding Disposition: TO HOME OR SELFCARE Is pt being admited?: No Does the pt Need Aspirin: No Condition: Stable Instructions: Gastritis, Adult, Abdominal Pain, Adult, [id number] Additional Instructions: please take medication as prescribed. do not drive or operate heavy machinery while taking severe pain medication. increase water intake. eat a bland liquid diet and slowly advance diet as tolerated. follow up with a primary care doctor. follow up with a GI doctor. follow up with your general surgeon. return to the emergency room for any new or worsening symptoms. Prescriptions: Mag Hydrox/Aluminum Hyd/Simeth [Maalox Advanced Suspension] 15 ml PO Q6H #1 oral.susp Pantoprazole [Protonix TAB] 40 mg PO BID #60 tablet traMADoL [Ultram 50 MG tab] 50 mg PO Q6HR PRN #10 tablet PRN Reason: Pain , Severe (7-10) Ondansetron [Zofran Odt] 4 mg PO Q8HR PRN #10 tab.rapdis PRN Reason: nausea vomiting Referrals: PRIMARY CARE, [Primary Care Provider] - 2-3 Days ANNE MARIE MCCONNELL DO [Staff Physician] - 2-3 Days [facility] [Provider Group] - 2-3 Days Time of Disposition: 22:05 Print Language: CROATIAN
[2020-09-08 19:56] LABS: Basophils # (Auto) 0.1 K/mm3 (0.0-0.1); Eosinophils # (Auto) 0.1 K/mm3 (0.0-0.4); Eosinophils % (Auto) 2.2 % (0.0-4.3); Hematocrit 32.1 % (35.5-45.6); Hemoglobin 10.5 gm/dl (11.8-15.2); Lymphocytes % (Auto) 16.4 % (13.4-35.0); Mean Corpuscular HGB Conc 33 % (32-34); Mean Corpuscular Volume 79 fl (84-94); Monocytes # (Auto) 0.6 K/mm3 (0.0-0.8); Monocytes % (Auto) 10.5 % (0.0-7.3); Platelet Count 593 K/mm3 (140-440); Red Blood Count 4.07 M/mm3 (3.65-5.03); Red Cell Distribution Width 16.2 % (13.2-15.2)
[2020-09-08 20:19] LABS: Alanine Aminotransferase 25 units/L (7-56); Albumin 3.3 g/dL (3.9-5); Blood Urea Nitrogen 10 mg/dL (9-20); Calcium 9.3 mg/dL (8.4-10.2); Hemolysis Index 22
[2020-09-08 20:21] LABS: BUN/Creatinine Ratio 17
--- NOTE | 2020-09-08 21:58 | Cat Scan Report ---
CT ABDOMEN AND PELVIS WITH CONTRAST INDICATION / CLINICAL INFORMATION: abd pain, n/v, recent abd surgery. TECHNIQUE: Axial CT images were obtained through the abdomen and pelvis after 100 cc Omni [address] scans at this location are performed using CT dose reduction for ALARA by means of automated expos ure control. COMPARISON: 08/19/2020 CT abdomen pelvis FINDINGS: LOWER CHEST: No significant abnormality. HEPATOBILIARY: No significant abnormality. PANCREAS/SPLEEN/ADRENALS: No significant abnormality. GENITOURINARY: Unchanged appearance with small right renal cysts. No obstructive uropathy. Moderate b ladder distention. GASTROINTESTINAL/MESENTERY: Poor delineation of bowel structures secondary to lack of enteric contras t and mild diffuse free fluid. No bowel obstruction is evident. Stomach is moderately distended and d emonstrates persistent, diffuse wall thickening similar when compared to the prior examination. No de finite ulceration is visualized on today's examination. There is a small outpouching in the region of the previously described gastric ulcer along the lesser curvature. No evidence of perforation. No si gnificant free air is noted. RETROPERITONEUM: No significant adenopathy. REPRODUCTIVE ORGANS: No significant abnormality. VASCULAR: No significant abnormality. BODY WALL: No significant abnormality. SKELETAL SYSTEM: No significant abnormality. IMPRESSION: 1. Postoperative change from prior gastric ulcer repair noting a small outpouching in the reason of t he previously described gastric ulcer. No evidence of perforation. Diffuse gastric wall thickening is overall stable and could represent gastritis. 2. Mild diffuse abdominopelvic free fluid. 3. Additional findings as above. Signer Name: Charles Loving MD Signed: 09/08/2020 9:53 PM Workstation Name: [id number]
[2020-09-08] MEDS ORDERED: oxyCODONE /ACETAMINOPHEN 5-325MG TAB PO ONE (22:03)
[2020-09-08 22:24] VITALS: BP 128/82
== END 2020-09-08 22:20 | disposition home or self-care (01) ==
LOC: ED 19:04
DX: K29.00 Acute gastritis without bleeding (principal); R10.84 Generalized abdominal pain; I10 Essential (primary) hypertension; F17.200 Nicotine dependence, unspecified, uncomplicated; Z98.890 Other specified postprocedural states; Z79.899 Other long term (current) drug therapy
CPT/HCPCS: 36415; 74177; 80053; 83690; 85025; 96361; 96374; 96375; 99284; J2270; J2405; J7030; Q9967

== ENCOUNTER 2020-10-02 07:39 | Emergency (ER) | payer SELFPAY ==
[2020-10-02] MEDS ORDERED: MORPHINE 4 MG/1 ML INJ IV ONE (08:09)
[2020-10-02] MEDS ORDERED: SODIUM CHLORIDE 0.9% 1000 ML 1,000 ML IV ONE (08:09)
--- NOTE | 2020-10-02 08:14 | Emergency Department Report ---
ED Abdominal Pain HPI - General Chief Complaint: Abdominal Pain Stated Complaint: ABD PAIN Time Seen by Provider: 10/02/20 08:04 Source: patient Mode of arrival: Ambulatory Limitations: No Limitations - History of Present Illness Initial Comments: 45-year-old male presents to the emergency room complaining of abdominal pain 02/15 symptoms started on when he could not have a bowel movement he vomited once on . He had no additional vomiting no fever no chills no nausea. He describes his abdomen as feeling bloated. He was seen was seen in this emergency room on 08/19/2020 with complaint of abdominal pain and diagnosed a perforated ulcer he underwent surgery. On 09/08/20 he returned to this emergency room with complaint of abdominal pain and was discharged home with gastritis. Patient is currently in no acute distress Location: diffuse Radiation: none Migration to: no migration Severity scale (0 -10): 8 Quality: fullness Worsens With: nothing Associated Symptoms: denies other symptoms - Related Data Previous Rx's Medication Instructions Recorded Last Taken Type Ondansetron (Nf) [Zofran TAB] 8 mg PO Q8HR #30 tablet 09/18/18 Unknown Rx HYDROcodone/APAP 5-325 [[place] 1 each PO Q6H PRN #20 tablet 08/24/20 Unknown Rx 5-325 mg TAB] Mag Hydrox/Aluminum Hyd/Simeth 15 ml PO Q6H #1 oral.susp 09/08/20 Unknown Rx [Maalox Advanced Suspension] Ondansetron [Zofran Odt] 4 mg PO Q8HR PRN #10 tab.rapdis 09/08/20 Unknown Rx Pantoprazole [Protonix TAB] 40 mg PO BID #60 tablet 09/08/20 Unknown Rx traMADoL [Ultram 50 MG tab] 50 mg PO Q6HR PRN #10 tablet 09/08/20 Unknown Rx Esomeprazole Magnesium [Nexium 20 mg PO DAILY #14 capsule. 10/02/20 Unknown Rx 24Hr] Allergies Allergy/AdvReac Type Severity Reaction Status Date / Time No Known Allergies Allergy Unverified 09/18/18 16:28 ED Review of Systems ROS: Stated complaint: ABD PAIN Other details as noted in HPI Comment: All other systems reviewed and negative Constitutional: no symptoms reported. denies: chills, fever, malaise Eyes: as per HPI ENT: denies: ear pain, throat pain, dental pain, hearing loss Respiratory: no symptoms reported Cardiovascular: denies: chest pain, palpitations, dyspnea on exertion Endocrine: no symptoms reported Gastrointestinal: abdominal pain, constipation. denies: nausea, vomiting Genitourinary: denies: urgency, dysuria, frequency, hematuria, testicular pain Musculoskeletal: denies: back pain, joint swelling, arthralgia Skin: denies: rash, lesions Neurological: denies: headache, weakness, numbness, paresthesias Psychiatric: denies: anxiety, depression, auditory hallucinations, visual hallucinations, homicidal thoughts ED Past Medical Hx - Past Medical History Previous Medical History?: Yes Hx Hypertension: Yes Hx Heart Attack/AMI: No Hx Liver Disease: No Hx Renal Disease: No Hx Sickle Cell Disease: No Hx Seizures: No Hx Asthma: No Hx COPD: No - Surgical History Past Surgical History?: Yes Hx Pacemaker: No Hx Internal Defibrillator: No Additional Surgical History: perforated ulcer - Social History Smoking Status: Current Every Day Smoker Substance Use Type: Alcohol, Marijuana - Medications Home Medications: Home Medications Medication Instructions Recorded Confirmed Last Taken Type Ondansetron (Nf) [Zofran TAB] 8 mg PO Q8HR #30 tablet 09/18/18 08/20/20 Unknown Rx HYDROcodone/APAP 5-325 [[place] 1 each PO Q6H PRN #20 tablet 08/24/20 Unknown Rx 5-325 mg TAB] Mag Hydrox/Aluminum Hyd/Simeth 15 ml PO Q6H #1 oral.susp 09/08/20 Unknown Rx [Maalox Advanced Suspension] Ondansetron [Zofran Odt] 4 mg PO Q8HR PRN #10 tab.rapdis 09/08/20 Unknown Rx Pantoprazole [Protonix TAB] 40 mg PO BID #60 tablet 09/08/20 Unknown Rx traMADoL [Ultram 50 MG tab] 50 mg PO Q6HR PRN #10 tablet 09/08/20 Unknown Rx Esomeprazole Magnesium [Nexium 20 mg PO DAILY #14 capsule. 10/02/20 Unknown Rx 24Hr] ED Physical Exam - General Limitations: No Limitations General appearance: alert, in no apparent distress - Head Head exam: Present: atraumatic - Eye Eye exam: Present: normal appearance. Absent: scleral icterus - ENT ENT exam: Present: normal exam - Neck Neck exam: Present: normal inspection, full ROM - Respiratory Respiratory exam: Present: wheezes (few scattered wheezes). Absent: respiratory distress, rales - Cardiovascular Cardiovascular Exam: Present: regular rate, normal heart sounds - GI/Abdominal GI/Abdominal exam: Present: soft, tenderness, normal bowel sounds - Rectal Rectal exam: Present: deferred - Extremities Exam Extremities exam: Present: normal inspection - Back Exam Back exam: Present: normal inspection - Neurological Exam Neurological exam: Present: alert, oriented X3 - Psychiatric Psychiatric exam: Present: normal affect - Skin Skin exam: Present: warm, dry, intact, normal color ED Course Vital Signs 10/02/20 10/02/20 10/02/20 07:47 07:53 08:48 Temperature 98.7 F Pulse Rate 59 L Respiratory 18 18 18 Rate Blood Pressure 132/80 O2 Sat by Pulse 100 98 Oximetry 10/02/20 10/02/20 09:18 10:35 Temperature Pulse Rate Respiratory 18 18 Rate Blood Pressure O2 Sat by Pulse Oximetry - Reevaluation(s) Reevaluation #1: 10/02/20 10:25 CAT scan completed awaiting CT results patient's ill complaining of abdominal pain he has had 1 episode of vomiting since being in the emergency room. Morphine 2 mg ordered for pain Reevaluation #2: 10/02/20 10:47 And to discuss findings with patient he is aware that this is findings shows gastritis patient in no acute distress ED Medical Decision Making - Lab Data Result diagrams: 10/02/20 08:21 10/02/20 08:21 - Radiology Data Radiology results: report reviewed - Medical Decision Making CT of the abdomen and pelvis with oral and IV contrast Final impression Moderate gastric wall thickening related to gastritis no new or recurrent gastric ulcer identified. No free air - Differential Diagnosis Small bowel obstruction, ileus, gastritis Critical Care Time: No Critical care attestation.: If time is entered above; I have spent that time in minutes in the direct care of this critically ill patient, excluding procedure time. ED Disposition Clinical Impression: Gastritis Qualifiers: Gastritis type: unspecified gastritis Chronicity: unspecified Gastritis bleeding: without bleeding Qualified Code(s): K29.70 - Gastritis, unspecified, without bleeding Disposition: -01 TO HOME OR SELFCARE Is pt being admited?: No Does the pt Need Aspirin: No Condition: Stable Instructions: Gastritis, Adult Additional Instructions: Take Nexium daily as prescribed. Follow-up with your primary care doctor or bathhouse attendant in 2 to 3 days you may follow-up with [facility] call [phone] to schedule an appointment. Increase your water intake to at least 6 to 8 glasses of water daily. You may also purchase [id number] Gas-X to help relieve gas in your stomach. Return to the emergency room if you develop fever severe abdominal pain inability to hold food or if you are not able to have a bowel movement. Consider increasing the fiber in your diet green leafy vegetables to help relieve constipation you may also purchase senna or MiraLAX [id number] and take as prescribed by package insert to assist in bowel movements. For pain you may takE Tylenol extra strength 500 mg 1 tablet every 6 hours as needed for pain do not take more than what the package insert suggest. Prescriptions: Esomeprazole Magnesium [Nexium 24Hr] 20 mg PO DAILY #14 capsule. Referrals: LEXX CONTRERAS MD [Primary Care Provider] - 3-5 Days CODEY RAMIREZ MD [Staff Physician] - 3-5 Days Time of Disposition: 10:59
[2020-10-02] MEDS ORDERED: ONDANSETRON 4 MG ODT TAB ONE (08:26)
[2020-10-02] MEDS ORDERED: MORPHINE 4 MG/1 ML INJ ONE (08:29)
[2020-10-02] MEDS ORDERED: SODIUM CHLORIDE 0.9% 1000 ML 1,000 ML ONE (08:29)
[2020-10-02] MEDS ORDERED: ONDANSETRON 4 MG/2 ML INJ ONE (08:31)
[2020-10-02] MEDS ORDERED: ONDANSETRON 4 MG/2 ML INJ IV ONE (08:35)
[2020-10-02 09:02] LABS: Hematocrit 32.3 % (35.5-45.6); Hemoglobin 10.5 gm/dl (11.8-15.2); Mean Corpuscular HGB Conc 33 % (32-34); Mean Corpuscular Volume 76 fl (84-94); Platelet Count 443 K/mm3 (140-440); Red Blood Count 4.24 M/mm3 (3.65-5.03); Red Cell Distribution Width 17.4 % (13.2-15.2)
[2020-10-02 09:28] LABS: Alanine Aminotransferase 13 units/L (7-56); Albumin 3.9 g/dL (3.9-5); BUN/Creatinine Ratio 11; Blood Urea Nitrogen 8 mg/dL (9-20); Calcium 9.8 mg/dL (8.4-10.2); Hemolysis Index 0
[2020-10-02] MEDS ORDERED: MORPHINE 2 MG/1 ML INJ IV ONE (10:22)
--- NOTE | 2020-10-02 10:30 | Cat Scan Report ---
CT ABDOMEN AND PELVIS WITH CONTRAST INDICATION / CLINICAL INFORMATION: Abdominal pain for 2 weeks. History of ruptured gastric ulcer in [facility] 2020. TECHNIQUE: Axial CT images were obtained through the abdomen and pelvis after 100 mL Omnipaque [address] scans at this location are performed using CT dose reduction for ALARA by means of automated exposure control. COMPARISON: CT dated 09/08/2020 and 08/19/2020 FINDINGS: LOWER CHEST: No significant abnormality. LIVER: No significant abnormality. GALLBLADDER: No significant abnormality. BILE DUCTS: No significant abnormality. PANCREAS: No significant abnormality. SPLEEN: No significant abnormality. ADRENALS: No significant abnormality. RIGHT KIDNEY / URETER: Simple cysts are unchanged. No acute abnormality. LEFT KIDNEY / URETER: No significant abnormality. STOMACH / SMALL BOWEL: Moderate gastric wall thickening and edema is essentially unchanged. No recurr ent gastric ulcer identified. No dilated small bowel. COLON: Diverticulosis without acute inflammation. APPENDIX: No significant abnormality. PERITONEUM: Small amount of free fluid in the abdomen and pelvis is unchanged. No free air. No fluid collection. LYMPH NODES: No significant adenopathy. AORTA / ARTERIES: No significant abnormality. IVC / VEINS: No significant abnormality. URINARY BLADDER: No significant abnormality. REPRODUCTIVE ORGANS: No significant abnormality. ADDITIONAL FINDINGS: None. SKELETAL SYSTEM: No significant abnormality. IMPRESSION: 1. Moderate gastric wall thickening related to gastritis. No new or recurrent gastric ulcer identifie d. No free air. Signer Name: John Borges MD Signed: 10/02/2020 10:26 AM Workstation Name: [id number]
[2020-10-02] MEDS ORDERED: MORPHINE 2 MG/1 ML INJ ONE (10:32)
[2020-10-02 11:22] VITALS: BP 146/78
== END 2020-10-02 11:22 | disposition home or self-care (01) ==
LOC: ED 07:39
DX: K29.70 Gastritis, unspecified, without bleeding (principal); I10 Essential (primary) hypertension; F17.200 Nicotine dependence, unspecified, uncomplicated; F12.90 Cannabis use, unspecified, uncomplicated; Z79.899 Other long term (current) drug therapy; Z98.890 Other specified postprocedural states
CPT/HCPCS: 36415; 74177; 80053; 83690; 85027; 96361; 96374; 96375; 99284; J2270; J2405; J7030; Q9967; Q0162

== ENCOUNTER 2020-11-18 19:24 | Inpatient (IN) | payer OTHER ==
[2020-11-18] MEDS ORDERED: ONDANSETRON 4 MG/2 ML INJ IV ONE (20:17)
[2020-11-18] MEDS ORDERED: SODIUM CHLORIDE 0.9% 1000 ML 1,000 ML IV ONE (20:17)
[2020-11-18] MEDS ORDERED: PANTOPRAZOLE 40 MG INJ IV ONE (20:17)
[2020-11-18 20:55] LABS: Basophils % (Auto) 0.4 % (0.0-1.8); Eosinophils # (Auto) 0.2 K/mm3 (0.0-0.4); Eosinophils % (Auto) 1.7 % (0.0-4.3); Lymphocytes # (Auto) 1.6 K/mm3 (1.2-5.4); Lymphocytes % (Auto) 13.9 % (13.4-35.0); Mean Corpuscular HGB Conc 29 % (32-34); Mean Corpuscular Volume 78 fl (84-94); Monocytes # (Auto) 1.1 K/mm3 (0.0-0.8); Monocytes % (Auto) 9.7 % (0.0-7.3); Platelet Count 548 K/mm3 (140-440); Red Cell Distribution Width 19.7 % (13.2-15.2)
[2020-11-18 21:05] LABS: INR 1.34 (0.87-1.13)
[2020-11-18 21:06] LABS: Partial Thromboplastin Time 26.9 Sec. (24.2-36.6)
[2020-11-18 21:08] LABS: Hematocrit 9.3 % (35.5-45.6); Hemoglobin 2.7 gm/dl (11.8-15.2)
[2020-11-18 21:09] LABS: Alanine Aminotransferase 30 units/L (7-56); Albumin 2.3 g/dL (3.9-5); BUN/Creatinine Ratio 50; Blood Urea Nitrogen 40 mg/dL (9-20); Calcium 7.7 mg/dL (8.4-10.2); Hemolysis Index 2
[2020-11-18] MEDS ORDERED: SODIUM CHLORIDE 0.9% 500 ML 500 ML IV ONE (21:09)
[2020-11-18] MEDS ORDERED: CEFEPIME/NS 2 GM/100 ML 2 GM/100 ML BAG IV ONE (21:11)
[2020-11-18] MEDS ORDERED: metroNIDAZOLE/NS 500 MG/100 ML 500 MG/100 ML BAG IV ONE (21:11)
--- NOTE | 2020-11-18 22:02 | Cat Scan Report ---
CT ABDOMEN AND PELVIS WITH CONTRAST INDICATION / CLINICAL INFORMATION: hematemesis hx of reptured Pep ulcer. TECHNIQUE: Axial CT images were obtained through the abdomen and pelvis after 100 cc Omni [address] scans at this location are performed using CT dose reduction for ALARA by means of automated expos ure control. COMPARISON: 10/02/2020 and multiple priors FINDINGS: LOWER CHEST: Moderate, diffuse, patchy groundglass opacities, greater on the left when compared to th e right. HEPATOBILIARY: No significant abnormality. PANCREAS/SPLEEN/ADRENALS: No significant abnormality. GENITOURINARY: Small right-sided simple cysts are unchanged. Left kidney demonstrates no significant abnormality. Ureters and bladder demonstrate no significant abnormality. GASTROINTESTINAL/MESENTERY: Appendix is visualized and demonstrates no evidence of acute appendicitis . There is mild diffuse gastric wall thickening suggestive of mild gastritis. No bowel obstruction is visualized. No free air or significant free fluid. RETROPERITONEUM: No significant adenopathy. REPRODUCTIVE ORGANS: No significant abnormality. VASCULAR: No significant abnormality. BODY WALL: No significant abnormality. SKELETAL SYSTEM: No significant abnormality. IMPRESSION: 1. Moderate, diffuse, patchy, groundglass opacities. Pattern suggests pulmonary edema, pneumonitis, a nd pulmonary hemorrhage should be considered. 2. Mild diffuse gastric wall thickening suggestive of mild gastritis. No evidence of perforation or d efinite ulceration. Signer Name: Charles Loving MD Signed: 11/18/2020 9:58 PM Workstation Name: [id number]
--- NOTE | 2020-11-18 22:19 | Emergency Department Report ---
ED GI Bleed HPI - General Chief complaint: GI Bleed Stated complaint: VOMITING BLOOD Time Seen by Provider: 11/18/20 20:16 Source: patient, EMS Mode of arrival: Stretcher Limitations: Altered Mental Status - History of Present Illness Initial comments: Patient is a 45-year-old F Indonesian male who is presenting with upper GI bleed. Patient at least through today has been vomiting coffee-ground emesis. Brought in by paramedics. Patient apparently has been going in and out of being fully lucid to somewhat lethargic. Blood pressure has been low and is being bolused by paramedics on arrival. Patient has a fairly recent history of peptic ulcer disease with a ruptured ulcer. In August 2020 patient had to be taken to surgery and had a liter of gastric contents in the space and outside of the intestines. Patient was placed on antibiotics and did have surgery. Patient is is only is stating that he feels dehydrated to me. Patient does not give any other additional history. - Related Data Previous Rx's Medication Instructions Recorded Last Taken Type Ondansetron (Nf) [Zofran TAB] 8 mg PO Q8HR #30 tablet 09/18/18 Unknown Rx HYDROcodone/APAP 5-325 [[place] 1 each PO Q6H PRN #20 tablet 08/24/20 Unknown Rx 5-325 mg TAB] Mag Hydrox/Aluminum Hyd/Simeth 15 ml PO Q6H #1 oral.susp 09/08/20 Unknown Rx [Maalox Advanced Suspension] Ondansetron [Zofran Odt] 4 mg PO Q8HR PRN #10 tab.rapdis 09/08/20 Unknown Rx Pantoprazole [Protonix TAB] 40 mg PO BID #60 tablet 09/08/20 Unknown Rx traMADoL [Ultram 50 MG tab] 50 mg PO Q6HR PRN #10 tablet 09/08/20 Unknown Rx Esomeprazole Magnesium [Nexium 20 mg PO DAILY #14 capsule.dr 10/02/20 Unknown Rx 24Hr] Allergies Allergy/AdvReac Type Severity Reaction Status Date / Time No Known Allergies Allergy Unverified 09/18/18 16:28 ED Review of Systems ROS: Stated complaint: VOMITING BLOOD Other details as noted in HPI Comment: Unobtainable due to pts medical conditions ED Past Medical Hx - Past Medical History Hx Hypertension: Yes Hx Heart Attack/AMI: No Hx Liver Disease: No Hx Renal Disease: No Hx Sickle Cell Disease: No Hx Seizures: No Hx Asthma: No Hx COPD: No - Surgical History Hx Pacemaker: No Hx Internal Defibrillator: No Additional Surgical History: perforated ulcer- hx of ETOH? - Social History Smoking Status: Never Smoker - Medications Home Medications: Home Medications Medication Instructions Recorded Confirmed Last Taken Type Ondansetron (Nf) [Zofran TAB] 8 mg PO Q8HR #30 tablet 09/18/18 08/20/20 Unknown Rx HYDROcodone/APAP 5-325 [[place] 1 each PO Q6H PRN #20 tablet 08/24/20 Unknown Rx 5-325 mg TAB] Mag Hydrox/Aluminum Hyd/Simeth 15 ml PO Q6H #1 oral.susp 09/08/20 Unknown Rx [Maalox Advanced Suspension] Ondansetron [Zofran Odt] 4 mg PO Q8HR PRN #10 tab.rapdis 09/08/20 Unknown Rx Pantoprazole [Protonix TAB] 40 mg PO BID #60 tablet 09/08/20 Unknown Rx traMADoL [Ultram 50 MG tab] 50 mg PO Q6HR PRN #10 tablet 09/08/20 Unknown Rx Esomeprazole Magnesium [Nexium 20 mg PO DAILY #14 capsule.dr 10/02/20 Unknown Rx 24Hr] ED Physical Exam - General Limitations: Altered Mental Status General appearance: lethargic, other (Coffee-ground emesis present on the patient's chin and on the bed) - Head Head exam: Present: atraumatic, normocephalic - Eye Eye exam: Present: normal appearance, PERRL, EOMI, other (pale) - ENT ENT exam: Present: mucous membranes dry - Neck Neck exam: Present: normal inspection - Respiratory Respiratory exam: Present: normal lung sounds bilaterally. Absent: respiratory distress, wheezes, rales, rhonchi - Cardiovascular Cardiovascular Exam: Present: normal rhythm, tachycardia. Absent: systolic murmur, diastolic murmur, rubs, gallop - GI/Abdominal GI/Abdominal exam: Present: soft, normal bowel sounds, other (midline abd scar present and healed). Absent: distended, tenderness, guarding, rebound - Rectal Rectal exam: Present: deferred - Extremities Exam Extremities exam: Present: normal inspection - Back Exam Back exam: Present: normal inspection - Neurological Exam Neurological exam: Present: alert, oriented X3 - Psychiatric Psychiatric exam: Present: normal affect, normal mood - Skin Skin exam: Present: warm, dry, intact, normal color. Absent: rash ED Course Vital Signs 11/18/20 11/18/20 11/18/20 20:00 20:04 20:31 Temperature 98.0 F Pulse Rate 115 H 120 H 112 H Respiratory 28 H 22 23 Rate Blood Pressure 106/55 103/56 98/47 O2 Sat by Pulse 98 Oximetry 11/18/20 11/18/20 11/18/20 20:48 21:01 21:45 Temperature Pulse Rate 110 H 112 H Respiratory 20 21 11 L Rate Blood Pressure 84/34 91/46 O2 Sat by Pulse Oximetry 11/18/20 11/18/20 22:01 22:31 Temperature Pulse Rate 112 H 112 H Respiratory 20 16 Rate Blood Pressure 84/33 88/42 O2 Sat by Pulse Oximetry ED Medical Decision Making - Lab Data Result diagrams: 11/18/20 20:27 11/18/20 20:27 Lab Results 11/18/20 11/18/20 11/18/20 Range/Units 20:27 20:27 20:27 WBC 11.3 H (4.5-11.0) K/mm3 RBC 1.20 L (3.65-5.03) M/mm3 Hgb 2.7 L* (11.8-15.2) gm/dl Hct 9.3 L* (35.5-45.6) % MCV 78 L (84-94) fl MCH 23 L (28-32) pg MCHC 29 L (32-34) % RDW 19.7 H (13.2-15.2) % Plt Count 548 H (140-440) K/mm3 Lymph % (Auto) 13.9 (13.4-35.0) % [place] % (Auto) 9.7 H (0.0-7.3) % Eos % (Auto) 1.7 (0.0-4.3) % Baso % (Auto) 0.4 (0.0-1.8) % Lymph # (Auto) 1.6 (1.2-5.4) K/mm3 [place] # (Auto) 1.1 H (0.0-0.8) K/mm3 Eos # (Auto) 0.2 (0.0-0.4) K/mm3 Baso # (Auto) 0.0 (0.0-0.1) K/mm3 Seg Neutrophils % 74.3 H (40.0-70.0) % Seg Neutrophils # 8.4 H (1.8-7.7) K/mm3 PT 16.6 H (12.2-14.9) Sec. INR 1.34 H (0.87-1.13) APTT 26.9 (24.2-36.6) Sec. Sodium 136 L (137-145) mmol/L Potassium 4.5 (3.6-5.0) mmol/L Chloride 101.3 (98-107) mmol/L Carbon Dioxide 19 L (22-30) mmol/L Anion Gap 20 mmol/L BUN 40 H (9-20) mg/dL Creatinine 0.8 (0.8-1.3) mg/dL Estimated GFR > 60 ml/min BUN/Creatinine Ratio 50 % Glucose 133 H (75-100) mg/dL Lactic Acid (0.7-2.0) mmol/L Calcium 7.7 L (8.4-10.2) mg/dL Total Bilirubin < 0.20 (0.1-1.2) mg/dL AST 26 (5-40) units/L ALT 30 (7-56) units/L Alkaline Phosphatase 58 (35-129) units/L Ammonia (25-60) umol/L Total Protein 4.9 L (6.3-8.2) g/dL Albumin 2.3 L (3.9-5) g/dL Albumin/Globulin Ratio 0.9 % Lipase 52 (13-60) units/L Blood Type Crossmatch 11/18/20 11/18/20 11/18/20 Range/Units 20:27 20:27 20:44 WBC (4.5-11.0) K/mm3 RBC (3.65-5.03) M/mm3 Hgb (11.8-15.2) gm/dl Hct (35.5-45.6) % MCV (84-94) fl MCH (28-32) pg MCHC (32-34) % RDW (13.2-15.2) % Plt Count (140-440) K/mm3 Lymph % (Auto) (13.4-35.0) % [place] % (Auto) (0.0-7.3) % Eos % (Auto) (0.0-4.3) % Baso % (Auto) (0.0-1.8) % Lymph # (Auto) (1.2-5.4) K/mm3 [place] # (Auto) (0.0-0.8) K/mm3 Eos # (Auto) (0.0-0.4) K/mm3 Baso # (Auto) (0.0-0.1) K/mm3 Seg Neutrophils % (40.0-70.0) % Seg Neutrophils # (1.8-7.7) K/mm3 PT (12.2-14.9) Sec. INR (0.87-1.13) APTT (24.2-36.6) Sec. Sodium (137-145) mmol/L Potassium (3.6-5.0) mmol/L Chloride (98-107) mmol/L Carbon Dioxide (22-30) mmol/L Anion Gap mmol/L BUN (9-20) mg/dL Creatinine (0.8-1.3) mg/dL Estimated GFR ml/min BUN/Creatinine Ratio % Glucose (75-100) mg/dL Lactic Acid 7.80 H* (0.7-2.0) mmol/L Calcium (8.4-10.2) mg/dL Total Bilirubin (0.1-1.2) mg/dL AST (5-40) units/L ALT (7-56) units/L Alkaline Phosphatase (35-129) units/L Ammonia 50.0 (25-60) umol/L Total Protein (6.3-8.2) g/dL Albumin (3.9-5) g/dL Albumin/Globulin Ratio % Lipase (13-60) units/L Blood Type B POSITIVE Crossmatch See Detail - Radiology Data Patient: JARED YANG MR#: [id number] : 1975 Acct:[id number] Age/Sex: 45 / M ADM Date: 11/18/20 Loc: ED Attending Dr: Ordering Physician: SKYLA ACEVEDO MD Date of Service: 11/18/20 Procedure(s): CT abdomen pelvis w con Accession Number(s): [id number] cc: SKYLA ACEVEDO MD CT ABDOMEN AND PELVIS WITH CONTRAST INDICATION / CLINICAL INFORMATION: hematemesis hx of reptured Pep ulcer. TECHNIQUE: Axial CT images were obtained through the abdomen and pelvis after 100 cc Omni [address] scans at this location are performed using CT dose reduction for ALARA by means of automated exposure control. COMPARISON: 10/02/2020 and multiple priors FINDINGS: LOWER CHEST: Moderate, diffuse, patchy groundglass opacities, greater on the left when compared to the right. HEPATOBILIARY: No significant abnormality. PANCREAS/SPLEEN/ADRENALS: No significant abnormality. GENITOURINARY: Small right-sided simple cysts are unchanged. Left kidney demonstrates no significant abnormality. Ureters and bladder demonstrate no significant abnormality. GASTROINTESTINAL/MESENTERY: Appendix is visualized and demonstrates no evidence of acute appendicitis. There is mild diffuse gastric wall thickening suggestive of mild gastritis. No bowel obstruction is visualized. No free air or significant free fluid. RETROPERITONEUM: No significant adenopathy. REPRODUCTIVE ORGANS: No significant abnormality. VASCULAR: No significant abnormality. BODY WALL: No significant abnormality. SKELETAL SYSTEM: No significant abnormality. IMPRESSION: 1. Moderate, diffuse, patchy, groundglass opacities. Pattern suggests pulmonary edema, pneumonitis, and pulmonary hemorrhage should be considered. 2. Mild diffuse gastric wall thickening suggestive of mild gastritis. No evidence of perforation or definite ulceration. Signer Name: Charles Loving MD Signed: 11/18/2020 9:58 PM Workstation Name: [id number] Patient: JARED YANG MR#: [id number] : 1975 Acct:[id number] Age/Sex: 45 / M ADM Date: 11/18/20 Loc: CC1 [id number]: EL LAU MD Ordering Physician: SKYLA ACEVEDO MD Date of Service: 11/18/20 Procedure(s): XR chest 1V ap Accession Number(s): [id number] cc: SKYLA ACEVEDO MD Fluoro Time In Minutes: CHEST 1 VIEW 11/18/2020 9:20 PM INDICATION / CLINICAL INFORMATION: abnl lungs on ct abd. COMPARISON: 08/19/2020 FINDINGS: SUPPORT DEVICES: None. HEART / MEDIASTINUM: Stable. LUNGS / PLEURA: Bilateral central/perihilar interstitial and parenchymal opacities which are slightly greater on the left when compared to the right. No pneumothorax. ADDITIONAL FINDINGS: No significant additional findings. IMPRESSION: 1. Central/perihilar interstitial and airspace disease concerning for edema, pneumonia, or aspiration. Pulmonary hemorrhage should be considered, as previously mentioned. Signer Name: Charles Loving MD Signed: 11/18/2020 10:35 PM Workstation Name: [id number] - Medical Decision Making Patient was aggressively hydrated here in emergency department. When the fluid stopped his blood pressure does drop but he responds well to IV fluids. The time of admission blood pressure was 105 systolic. Patient had 2 units of packed red blood cells ordered. Patient given Protonix and started on Protonix drip. Before the CT returned I did add cefepime and Flagyl to the patient's regimen in case he had perforated but was too lethargic to give accurate history of his pain. Patient did not appear to be in pain during physical exam. Patient to be admitted to the ICU. Critical Care Time: Yes (30) Critical care attestation.: If time is entered above; I have spent that time in minutes in the direct care of this critically ill patient, excluding procedure time. ED Disposition Clinical Impression: Dehydration, Symptomatic anemia, Pneumonitis, Altered mental state, Metabolic acidosis, PUD (peptic ulcer disease) Disposition: DC-09 OP ADMIT IP TO THIS HOSP Is pt being admited?: Yes Does the pt Need Aspirin: No Condition: Stable Time of Disposition: 22:55
--- NOTE | 2020-11-18 22:39 | XRay Report ---
CHEST 1 VIEW 11/18/2020 9:20 PM INDICATION / CLINICAL INFORMATION: abnl lungs on ct abd. COMPARISON: 08/19/2020 FINDINGS: SUPPORT DEVICES: None. HEART / MEDIASTINUM: Stable. LUNGS / PLEURA: Bilateral central/perihilar interstitial and parenchymal opacities which are slightly greater on the left when compared to the right. No pneumothorax. ADDITIONAL FINDINGS: No significant additional findings. IMPRESSION: 1. Central/perihilar interstitial and airspace disease concerning for edema, pneumonia, or aspiration . Pulmonary hemorrhage should be considered, as previously mentioned. Signer Name: Charles Loving MD Signed: 11/18/2020 10:35 PM Workstation Name: [id number]
[2020-11-18] MEDS ORDERED: MORPHINE 2 MG/1 ML INJ IV PRN (22:47)
[2020-11-18] MEDS ORDERED: ONDANSETRON 4 MG/2 ML INJ IV PRN (22:47)
[2020-11-18] MEDS ORDERED: PANTOPRAZOLE 80 MG in SODIUM CHLORIDE 0.9% 100 ML IV SCH (23:00)
[2020-11-18] MEDS ORDERED: SODIUM CHLORIDE 0.9% 1000 ML 1,000 ML IV SCH (23:00)
--- NOTE | 2020-11-18 23:01 | History and Physical Report ---
History of Present Illness Date of examination: 11/18/20 Date of admission: 11/18/20 22:22 Chief complaint: Coffee ground emesis History of present illness: 45-year old -[place] male presents to the emergency room via EMS today with a complaint of coffee-ground emesis which has been ongoing since this morning. He has known history of peptic ulcer disease with perforation. In August 2020 patient had abdominal surgery for ruptured peptic ulcer. He was subsequently placed on antibiotics. Upon arrival in the emergency room today patient was found to be quite lethargic and slightly altered mentation. Blood pressure was also found to be low. Was immediately hydrated with IV fluid with improvement in his mental status. Patient also indicates that he has been having occasional black stool lately. He has had some abdominal pain. He admits he has been using ibuprofen occasionally for generalized pain and he also drinks alcohol on the weekends. Patient denies any fever or chills, no chest pain no shortness of breath, no headache or dizziness. Denies any recent travel or sick contacts. Denies contact with anyone with COVID-19. Work-up in the emergency room today, labs revealed leukocytosis of 11.3, hemoglobin of 2.7 and hematocrit of 9.3. BUN was 40 and creatinine of 4.8. Patient had a lactic acidosis of 7.8 and calcium was 7.7 CT of the abdomen and pelvis reveals: Moderate, diffuse patchy groundglass opacities suggestive of pulmonary edema, pneumonitis, pulmonary hemorrhage should also be considered. Mild diffuse gastric wall thickening suggestive of mild gastritis no evidence of perforation or definite ulceration. Chest x-ray reveals central/perihilar interstitial and airspace disease concerning for edema, pneumonitis or aspiration. Patient is being admitted for the following: GI bleed, anemia, dehydration, pneumonitis, metabolic acidosis. In view of the chest x-ray and CT of the abdomen/pelvis findings, patient will also be evaluated for COVID-19. Past History Past Medical History: other (Peptic Ulcer disease with perforation) Past Surgical History: bowel surgery (For perfrated Ulcer) Social history: alcohol abuse Family history: no significant family history Medications and Allergies Allergies Allergy/AdvReac Type Severity Reaction Status Date / Time No Known Allergies Allergy Unverified 09/18/18 16:28 Home Medications Medication Instructions Recorded Confirmed Last Taken Type Mag Hydrox/Aluminum Hyd/Simeth 15 ml PO Q6H #1 oral.susp 09/08/20 Unknown Rx [Maalox Advanced Suspension] Pantoprazole [Protonix TAB] 40 mg PO BID #60 tablet 09/08/20 Unknown Rx Esomeprazole Magnesium [Nexium 20 mg PO DAILY #14 capsule.dr 10/02/20 Unknown Rx 24Hr] Active Meds: Active Medications Pantoprazole Sodium 80 mg/ (Sodium Chloride) 100 mls @ 10 mls/hr IV DIRECT SIOBHAN Last Admin: 11/18/20 22:44 Dose: 8 mg/hr, 10 mls/hr Documented by: Review of Systems Constitutional: no fever, no chills Ears, nose, mouth and throat: no nasal congestion, no sore throat Cardiovascular: no chest pain, no palpitations Respiratory: no cough, no shortness of breath Gastrointestinal: abdominal pain, nausea, vomiting, coffee ground emesis, melena, no diarrhea, no BRBPR Genitourinary Male: no dysuria, no hematuria, no flank pain, no nocturia Rectal: no pain, no itching, no flatulence Musculoskeletal: no neck pain, no low back pain Integumentary: no rash, no pruritis Neurological: no headaches, no confusion Psychiatric: no anxiety, no depression Endocrine: no polyphagia, no polydipsia, no polyuria, no nocturia Exam - Constitutional Vitals: Temp Pulse Resp BP Pulse Ox 98.0 F 112 H 16 88/42 98 11/18/20 20:04 11/18/20 22:31 11/18/20 22:31 11/18/20 22:31 11/18/20 20:04 General appearance: Present: no acute distress, well-nourished, other (Severe Pallor, Dry Oral mucosa) - EENT Eyes: Present: PERRL, EOM intact. Absent: scleral icterus ENT: hearing intact, clear oral mucosa, dentition normal - Neck Neck: Present: supple, normal ROM - Respiratory Respiratory effort: normal Respiratory: bilateral: diminished - Cardiovascular Rhythm: regular Heart Sounds: Present: S1 & S2. Absent: gallop, systolic murmur, diastolic murmur, rub, click - Extremities Extremities: no ischemia, pulses intact, pulses symmetrical, No edema, normal temperature, normal color, Full ROM Peripheral Pulses: within normal limits - Abdominal General gastrointestinal: Present: soft, tender (Mild epigastric tenderness, no rebound tenderness, no guarding and no masses.), non-distended, normal bowel sounds, other (Scar of old surgery in the midline). Absent: mass - Integumentary Integumentary: Present: clear, warm, dry, pale, normal turgor. Absent: rash - Musculoskeletal Musculoskeletal: strength equal bilaterally - Psychiatric Psychiatric: appropriate mood/affect, intact judgment & insight, memory intact, cooperative - Neurologic Neurologic: CNII-XII intact, no focal deficits, moves all extremities Results - Labs CBC & Chem 7: 11/18/20 20:27 11/18/20 23:22 Labs: Abnormal lab results 11/18/20 11/18/20 11/18/20 Range/Units 20:27 20:27 20:27 WBC 11.3 H (4.5-11.0) K/mm3 RBC 1.20 L (3.65-5.03) M/mm3 Hgb 2.7 L* (11.8-15.2) gm/dl Hct 9.3 L* (35.5-45.6) % MCV 78 L (84-94) fl MCH 23 L (28-32) pg MCHC 29 L (32-34) % RDW 19.7 H (13.2-15.2) % Plt Count 548 H (140-440) K/mm3 [place] % (Auto) 9.7 H (0.0-7.3) % [place] # (Auto) 1.1 H (0.0-0.8) K/mm3 Seg Neutrophils % 74.3 H (40.0-70.0) % Seg Neutrophils # 8.4 H (1.8-7.7) K/mm3 PT 16.6 H (12.2-14.9) Sec. INR 1.34 H (0.87-1.13) Sodium 136 L (137-145) mmol/L Carbon Dioxide 19 L (22-30) mmol/L BUN 40 H (9-20) mg/dL Glucose 133 H (75-100) mg/dL Lactic Acid (0.7-2.0) mmol/L Calcium 7.7 L (8.4-10.2) mg/dL Total Protein 4.9 L (6.3-8.2) g/dL Albumin 2.3 L (3.9-5) g/dL Crossmatch 11/18/20 11/18/20 Range/Units 20:27 20:27 WBC (4.5-11.0) K/mm3 RBC (3.65-5.03) M/mm3 Hgb (11.8-15.2) gm/dl Hct (35.5-45.6) % MCV (84-94) fl MCH (28-32) pg MCHC (32-34) % RDW (13.2-15.2) % Plt Count (140-440) K/mm3 [place] % (Auto) (0.0-7.3) % [place] # (Auto) (0.0-0.8) K/mm3 Seg Neutrophils % (40.0-70.0) % Seg Neutrophils # (1.8-7.7) K/mm3 PT (12.2-14.9) Sec. INR (0.87-1.13) Sodium (137-145) mmol/L Carbon Dioxide (22-30) mmol/L BUN (9-20) mg/dL Glucose (75-100) mg/dL Lactic Acid 7.80 H* (0.7-2.0) mmol/L Calcium (8.4-10.2) mg/dL Total Protein (6.3-8.2) g/dL Albumin (3.9-5) g/dL Crossmatch See Detail Assessment and Plan - Patient Problems (1) Symptomatic anemia Current Visit: Yes Status: Acute Plan to address problem: Possibly from GI bleed. Patient has been scheduled for blood transfusion. Will monitor CBC. (2) Dehydration Current Visit: Yes Status: Acute Plan to address problem: Possibly from the nausea and vomiting. We will place on IV fluid and monitor BUN and creatinine. (3) Altered mental state Current Visit: Yes Status: Acute Plan to address problem: Possibly from severe dehydration and anemia. Mental status is improved since arrival in the emergency room with IV fluid and blood transfusion. (4) Metabolic acidosis Current Visit: Yes Status: Acute Plan to address problem: We will continue on IV fluid and monitor chemistry closely. (5) PUD (peptic ulcer disease) Current Visit: Yes Status: Acute Plan to address problem: Patient has known history of peptic ulcer disease. Hehad surgery for perforated peptic ulcer in August 2020 Patient placed on proton pump inhibitor. We will await evaluation by gastroenterology. (6) Pneumonitis Current Visit: Yes Status: Acute Plan to address problem: Unclear if this is secondary to aspiration. We will also check patient for COVID-19. Patient will be placed on empiric IV antibiotics. We will also consult supervisor money room for evaluation and recommendation. Consult to Infectious disease if needed. (7) DVT prophylaxis Current Visit: Yes Status: Acute Plan to address problem: Patient placed on sequential compression device. (8) Full code status Current Visit: Yes Status: Acute Plan to address problem: Patient is full code.
[2020-11-19 01:36] LABS: C-Reactive Protein 0.4 mg/dL (0.00-1.30)
[2020-11-19 08:12] LABS: Basophils % (Auto) 0.1 % (0.0-1.8); Eosinophils % (Auto) 0.1 % (0.0-4.3); Lymphocytes # (Auto) 0.7 K/mm3 (1.2-5.4); Lymphocytes % (Auto) 4.6 % (13.4-35.0); Mean Corpuscular HGB Conc 32 % (32-34); Mean Corpuscular Volume 84 fl (84-94); Monocytes # (Auto) 0.8 K/mm3 (0.0-0.8); Monocytes % (Auto) 5.6 % (0.0-7.3); Platelet Count 439 K/mm3 (140-440); Red Blood Count 1.84 M/mm3 (3.65-5.03)
[2020-11-19 08:16] LABS: Hematocrit 15.4 % (35.5-45.6); Hemoglobin 4.9 gm/dl (11.8-15.2)
[2020-11-19 08:17] LABS: Red Cell Distribution Width 23.4 % (13.2-15.2)
[2020-11-19 08:23] LABS: Blood Urea Nitrogen 38 mg/dL (9-20); Calcium 7.7 mg/dL (8.4-10.2); Hemolysis Index 2
[2020-11-19 08:24] LABS: INR 1.27 (0.87-1.13)
[2020-11-19 08:38] LABS: BUN/Creatinine Ratio 54
[2020-11-19] MEDS ORDERED: SODIUM CHLORIDE 0.9% 500 ML 500 ML IV SCH (10:00)
--- NOTE | 2020-11-19 11:58 | Progress Note ---
Assessment and Plan -- Symptomatic anemia Current Visit: Yes Status: Acute Plan to address problem: Possibly from GI bleed. Patient has been scheduled for blood transfusion. Will monitor CBC. -- Dehydration Current Visit: Yes Status: Acute Plan to address problem: Possibly from the nausea and vomiting. We will place on IV fluid and monitor BUN and creatinine. --Altered mental state Current Visit: Yes Status: Acute Plan to address problem: Possibly from severe dehydration and anemia. Mental status is improved since arrival in the emergency room with IV fluid and blood transfusion. -- Metabolic acidosis Current Visit: Yes Status: Acute Plan to address problem: We will continue on IV fluid and monitor chemistry closely. -- PUD (peptic ulcer disease) Current Visit: Yes Status: Acute Plan to address problem: Patient has known history of peptic ulcer disease. Hehad surgery for perforated peptic ulcer in August 2020 Patient placed on proton pump inhibitor. We will await evaluation by gastroenterology. -- PNA Current Visit: Yes Status: Acute Plan to address problem: Unclear if this is secondary to aspiration. We will also check patient for COVID-19. Patient will be placed on empiric IV antibiotics. We will also consult purchasing agent for evaluation and recommendation. Consult to Infectious disease if needed. --COVID 19 PUI, PCR order placed -- DVT prophylaxis Current Visit: Yes Status: Acute Plan to address problem: Patient placed on sequential compression device. -- Full code status Current Visit: Yes Status: Acute Plan to address problem: Patient is full code. 11/19/20: Hb ~4 after 2 units PRBC transfusion, will transfuse 4 more units. cont empiric abx, wait for COVID result Subjective Date of service: 11/19/20 Objective - Constitutional Vitals: Vital Signs - 12hr 11/19/20 11/19/20 11/19/20 00:01 00:19 00:31 Temperature Pulse Rate 104 H 98 H 103 H Pulse Rate [ None] Respiratory 19 16 19 Rate Respiratory Rate [abdominal all over] Blood Pressure 109/65 114/54 107/66 O2 Sat by Pulse Oximetry 11/19/20 11/19/20 11/19/20 00:49 01:01 01:25 Temperature 99.0 F Pulse Rate 96 H 97 H 101 H Pulse Rate [ None] Respiratory 16 15 16 Rate Respiratory Rate [abdominal all over] Blood Pressure 125/65 115/66 121/65 O2 Sat by Pulse 99 Oximetry 11/19/20 11/19/20 11/19/20 01:31 01:40 01:55 Temperature 99.3 F 99.3 F Pulse Rate 99 H 96 H 101 H Pulse Rate [ None] Respiratory 15 16 16 Rate Respiratory Rate [abdominal all over] Blood Pressure 114/54 132/77 120/68 O2 Sat by Pulse 96 100 Oximetry 11/19/20 11/19/20 11/19/20 02:00 02:30 02:50 Temperature 99.4 F 99.4 F Pulse Rate 101 H Pulse Rate [ 101 H None] Respiratory 22 Rate Respiratory 20 Rate [abdominal all over] Blood Pressure 120/70 O2 Sat by Pulse 100 Oximetry 11/19/20 11/19/20 11/19/20 03:00 03:03 03:30 Temperature 99.3 F 99.3 F Pulse Rate 101 H 98 H Pulse Rate [ None] Respiratory 21 24 16 Rate Respiratory Rate [abdominal all over] Blood Pressure 115/69 111/65 O2 Sat by Pulse 100 100 Oximetry 11/19/20 11/19/20 11/19/20 03:33 03:48 04:00 Temperature 99.3 F 99.3 F Pulse Rate 94 H Pulse Rate [ None] Respiratory 16 16 Rate Respiratory Rate [abdominal all over] Blood Pressure 112/68 O2 Sat by Pulse 100 Oximetry 11/19/20 11/19/20 11/19/20 04:30 05:22 08:00 Temperature 99.4 F 98.2 F Pulse Rate 95 H Pulse Rate [ None] Respiratory 17 22 Rate Respiratory Rate [abdominal all over] Blood Pressure 106/64 O2 Sat by Pulse 100 100 Oximetry - Labs CBC & Chem 7: 11/19/20 07:14 11/19/20 07:14 Labs: Abnormal lab results 11/18/20 11/18/20 11/18/20 Range/Units 20:27 20:27 20:27 WBC 11.3 H (4.5-11.0) K/mm3 RBC 1.20 L (3.65-5.03) M/mm3 Hgb 2.7 L* (11.8-15.2) gm/dl Hct 9.3 L* (35.5-45.6) % MCV 78 L (84-94) fl MCH 23 L (28-32) pg MCHC 29 L (32-34) % RDW 19.7 H (13.2-15.2) % Plt Count 548 H (140-440) K/mm3 Lymph % (Auto) (13.4-35.0) % [place] % (Auto) 9.7 H (0.0-7.3) % Lymph # (Auto) (1.2-5.4) K/mm3 [place] # (Auto) 1.1 H (0.0-0.8) K/mm3 Seg Neutrophils % 74.3 H (40.0-70.0) % Seg Neutrophils # 8.4 H (1.8-7.7) K/mm3 PT 16.6 H (12.2-14.9) Sec. INR 1.34 H (0.87-1.13) D-Dimer (0-234) ng/mlDDU Sodium 136 L (137-145) mmol/L Chloride (98-107) mmol/L Carbon Dioxide 19 L (22-30) mmol/L BUN 40 H (9-20) mg/dL Creatinine (0.8-1.3) mg/dL Glucose 133 H (75-100) mg/dL Lactic Acid (0.7-2.0) mmol/L Calcium 7.7 L (8.4-10.2) mg/dL Ferritin (30.0-300.0) ng/mL Lactate Dehydrogenase (91-180) units/L Total Protein 4.9 L (6.3-8.2) g/dL Albumin 2.3 L (3.9-5) g/dL Crossmatch 11/18/20 11/18/20 11/18/20 Range/Units 20:27 20:27 23:22 WBC (4.5-11.0) K/mm3 RBC (3.65-5.03) M/mm3 Hgb (11.8-15.2) gm/dl Hct (35.5-45.6) % MCV (84-94) fl MCH (28-32) pg MCHC (32-34) % RDW (13.2-15.2) % Plt Count (140-440) K/mm3 Lymph % (Auto) (13.4-35.0) % [place] % (Auto) (0.0-7.3) % Lymph # (Auto) (1.2-5.4) K/mm3 [place] # (Auto) (0.0-0.8) K/mm3 Seg Neutrophils % (40.0-70.0) % Seg Neutrophils # (1.8-7.7) K/mm3 PT (12.2-14.9) Sec. INR (0.87-1.13) D-Dimer (0-234) ng/mlDDU Sodium (137-145) mmol/L Chloride (98-107) mmol/L Carbon Dioxide (22-30) mmol/L BUN (9-20) mg/dL Creatinine (0.8-1.3) mg/dL Glucose (75-100) mg/dL Lactic Acid 7.80 H* (0.7-2.0) mmol/L Calcium (8.4-10.2) mg/dL Ferritin (30.0-300.0) ng/mL Lactate Dehydrogenase 10 L (91-180) units/L Total Protein (6.3-8.2) g/dL Albumin (3.9-5) g/dL Crossmatch See Detail 11/18/20 11/19/20 11/19/20 Range/Units 23:22 07:14 07:14 WBC 15.2 H (4.5-11.0) K/mm3 RBC 1.84 L (3.65-5.03) M/mm3 Hgb 4.9 L* (11.8-15.2) gm/dl Hct 15.4 L* D (35.5-45.6) % MCV (84-94) fl MCH 27 L (28-32) pg MCHC (32-34) % RDW 23.4 H (13.2-15.2) % Plt Count (140-440) K/mm3 Lymph % (Auto) 4.6 L (13.4-35.0) % [place] % (Auto) (0.0-7.3) % Lymph # (Auto) 0.7 L (1.2-5.4) K/mm3 [place] # (Auto) (0.0-0.8) K/mm3 Seg Neutrophils % 89.6 H (40.0-70.0) % Seg Neutrophils # 13.7 H (1.8-7.7) K/mm3 PT 15.9 H (12.2-14.9) Sec. INR 1.27 H (0.87-1.13) D-Dimer 256.70 H (0-234) ng/mlDDU Sodium (137-145) mmol/L Chloride (98-107) mmol/L Carbon Dioxide (22-30) mmol/L BUN (9-20) mg/dL Creatinine (0.8-1.3) mg/dL Glucose (75-100) mg/dL Lactic Acid (0.7-2.0) mmol/L Calcium (8.4-10.2) mg/dL Ferritin 4.0 L (30.0-300.0) ng/mL Lactate Dehydrogenase (91-180) units/L Total Protein (6.3-8.2) g/dL Albumin (3.9-5) g/dL Crossmatch 11/19/20 Range/Units 07:14 WBC (4.5-11.0) K/mm3 RBC (3.65-5.03) M/mm3 Hgb (11.8-15.2) gm/dl Hct (35.5-45.6) % MCV (84-94) fl MCH (28-32) pg MCHC (32-34) % RDW (13.2-15.2) % Plt Count (140-440) K/mm3 Lymph % (Auto) (13.4-35.0) % [place] % (Auto) (0.0-7.3) % Lymph # (Auto) (1.2-5.4) K/mm3 [place] # (Auto) (0.0-0.8) K/mm3 Seg Neutrophils % (40.0-70.0) % Seg Neutrophils # (1.8-7.7) K/mm3 PT (12.2-14.9) Sec. INR (0.87-1.13) D-Dimer (0-234) ng/mlDDU Sodium (137-145) mmol/L Chloride 109.4 H (98-107) mmol/L Carbon Dioxide (22-30) mmol/L BUN 38 H (9-20) mg/dL Creatinine 0.7 L (0.8-1.3) mg/dL Glucose (75-100) mg/dL Lactic Acid (0.7-2.0) mmol/L Calcium 7.7 L (8.4-10.2) mg/dL Ferritin (30.0-300.0) ng/mL Lactate Dehydrogenase (91-180) units/L Total Protein (6.3-8.2) g/dL Albumin (3.9-5) g/dL Crossmatch
[2020-11-19] MEDS ORDERED: CEFEPIME/NS 2 GM/100 ML 2 GM/100 ML BAG IV SCH (12:30)
--- NOTE | 2020-11-19 13:23 | Consultation ---
History of Present Illness Consult date: 11/19/20 Requesting physician: EL LAU Reason for consult: other (Acute GI Bleed; Hemmorhagic Shock) History of present illness: PCCM CONSULT NOTE (Full dictation # [id number]) Please see dictated notes for full details Past History Past Medical History: other (Peptic Ulcer disease with perforation) Past Surgical History: bowel surgery (For perfrated Ulcer) Social history: alcohol abuse Family history: no significant family history Medications and Allergies Allergies Allergy/AdvReac Type Severity Reaction Status Date / Time No Known Allergies Allergy Unverified 09/18/18 16:28 Home Medications Medication Instructions Recorded Confirmed Last Taken Type Mag Hydrox/Aluminum Hyd/Simeth 15 ml PO Q6H #1 oral.susp 09/08/20 11/19/20 Unknown Rx [Maalox Advanced Suspension] Pantoprazole [Protonix TAB] 40 mg PO BID #60 tablet 09/08/20 11/19/20 10/07/20 Rx Esomeprazole Magnesium [Nexium 20 mg PO DAILY #14 capsule.dr 10/02/20 11/19/20 Unknown Rx 24Hr] Active Meds: Active Medications Pantoprazole Sodium 80 mg/ (Sodium Chloride) 100 mls @ 10 mls/hr IV DIRECT SIOBHAN Last Admin: 11/18/20 22:44 Dose: 8 mg/hr, 10 mls/hr Documented by: Sodium Chloride (Nacl 0.9% 1000 Ml) 1,000 mls @ 75 mls/hr IV DIRECT SIOBHAN Last Admin: 11/19/20 03:07 Dose: 75 mls/hr Documented by: Sodium Chloride (Nacl 0.9% 500 Ml) 500 mls @ 0 mls/hr IV ONCE SIOBHAN Stop: 11/19/20 20:00 Cefepime HCl (Cefepime/Ns 2 Gm/100 Ml) 2 gm in 100 mls @ 200 mls/hr IV Q12HR SIOBHAN; Protocol Metronidazole (Flagyl 500 Mg/100 Ml) 500 mg in 100 mls @ 100 mls/hr IV Q8HR SIOBHAN; Protocol Morphine Sulfate (Morphine 2 Mg/1 Ml Inj) 2 mg IV Q4H PRN PRN Reason: Pain, Moderate (4-6) Last Admin: 11/19/20 03:03 Dose: 2 mg Documented by: Ondansetron HCl (Ondansetron 4 Mg/2 Ml Inj) 4 mg IV Q8H PRN PRN Reason: Nausea And Vomiting Last Admin: 11/19/20 03:04 Dose: 4 mg Documented by: Sodium Chloride (Sodium Chloride 0.9% 10 Ml Flush Syringe) 10 ml IV BID SIOBHAN Last Admin: 11/19/20 10:10 Dose: 10 ml Documented by: Sodium Chloride (Sodium Chloride 0.9% 10 Ml Flush Syringe) 10 ml IV PRN PRN PRN Reason: LINE FLUSH Physical Examination Vital signs: Vital Signs Pulse Resp BP 115 H 28 H 106/55 11/18/20 20:00 11/18/20 20:00 11/18/20 20:00 Results - Laboratory Findings CBC and BMP: 11/19/20 07:14 11/19/20 07:14 PT/INR, D-dimer PT 15.9 Sec. (12.2-14.9) H 11/19/20 07:14 INR 1.27 (0.87-1.13) H 11/19/20 07:14 D-Dimer 256.70 ng/mlDDU (0-234) H 11/19/20 07:14 Abnormal lab findings: Abnormal Labs 11/18/20 11/18/20 11/18/20 20:27 20:27 20:27 WBC 11.3 H RBC 1.20 L Hgb 2.7 L* Hct 9.3 L* MCV 78 L MCH 23 L MCHC 29 L RDW 19.7 H Plt Count 548 H Lymph % (Auto) [place] % (Auto) 9.7 H Lymph # (Auto) [place] # (Auto) 1.1 H Seg Neutrophils % 74.3 H Seg Neutrophils # 8.4 H PT 16.6 H INR 1.34 H D-Dimer Sodium 136 L Chloride Carbon Dioxide 19 L BUN 40 H Creatinine Glucose 133 H Lactic Acid Calcium 7.7 L Ferritin Lactate Dehydrogenase Total Protein 4.9 L Albumin 2.3 L Crossmatch 11/18/20 11/18/20 11/18/20 20:27 20:27 23:22 WBC RBC Hgb Hct MCV MCH MCHC RDW Plt Count Lymph % (Auto) [place] % (Auto) Lymph # (Auto) [place] # (Auto) Seg Neutrophils % Seg Neutrophils # PT INR D-Dimer Sodium Chloride Carbon Dioxide BUN Creatinine Glucose Lactic Acid 7.80 H* Calcium Ferritin Lactate Dehydrogenase 10 L Total Protein Albumin Crossmatch See Detail 11/18/20 11/19/20 11/19/20 23:22 07:14 07:14 WBC 15.2 H RBC 1.84 L Hgb 4.9 L* Hct 15.4 L* D MCV MCH 27 L MCHC RDW 23.4 H Plt Count Lymph % (Auto) 4.6 L [place] % (Auto) Lymph # (Auto) 0.7 L [place] # (Auto) Seg Neutrophils % 89.6 H Seg Neutrophils # 13.7 H PT 15.9 H INR 1.27 H D-Dimer 256.70 H Sodium Chloride Carbon Dioxide BUN Creatinine Glucose Lactic Acid Calcium Ferritin 4.0 L Lactate Dehydrogenase Total Protein Albumin Crossmatch 11/19/20 07:14 WBC RBC Hgb Hct MCV MCH MCHC RDW Plt Count Lymph % (Auto) [place] % (Auto) Lymph # (Auto) [place] # (Auto) Seg Neutrophils % Seg Neutrophils # PT INR D-Dimer Sodium Chloride 109.4 H Carbon Dioxide BUN 38 H Creatinine 0.7 L Glucose Lactic Acid Calcium 7.7 L Ferritin Lactate Dehydrogenase Total Protein Albumin Crossmatch
[2020-11-19] MEDS ORDERED: metroNIDAZOLE/NS 500 MG/100 ML 500 MG/100 ML BAG IV SCH (14:00)
--- NOTE | 2020-11-19 17:07 | Gastroenterology Consultation ---
History of Present Illness - Reason for Consult Consult date: 11/19/20 GI bleed Requesting physician: EL LAU - History of Present Illness This is a 45 yo male with pmh of PUD with last admission in 09/2020 with gastric ulcer with perforation s/p repair admitted overnight with coffee ground emesis and AMS/hypotension. Patient noted to be lethargic on arrival to the ED with hypotension. His mental status improved with IV fluid. He has had some epigastric pain, which improved today. Per H&P, he had black stools but he is denying any blood in the stools or black stools to me. He had one episode of vomiting yesterday with coffee ground emesis. Not sure if he has been on PPI since his last admission for PUD with perforation. Work up in the ED showed Hgb of 2.7, which trended up to 4.9 after blood transfusion. BUN 40, Cr 4.8. Lactic acid at 7.8. CT of a/p showed moderate, diffuse patchy groundglass opacities, mild diffuse gastric wall thickening but no evidence of perforation or definite ulceration. COVID-19 was negative. Medication list reviewed. Past History Past Medical History: other (Peptic Ulcer disease with perforation) Past Surgical History: bowel surgery (For perfrated Ulcer) Social history: alcohol abuse Family history: no significant family history Medications and Allergies Allergies Allergy/AdvReac Type Severity Reaction Status Date / Time No Known Allergies Allergy Unverified 09/18/18 16:28 Home Medications Medication Instructions Recorded Confirmed Last Taken Type Mag Hydrox/Aluminum Hyd/Simeth 15 ml PO Q6H #1 oral.susp 09/08/20 11/19/20 Unknown Rx [Maalox Advanced Suspension] Pantoprazole [Protonix TAB] 40 mg PO BID #60 tablet 09/08/20 11/19/20 10/07/20 Rx Esomeprazole Magnesium [Nexium 20 mg PO DAILY #14 capsule. 10/02/20 11/19/20 Unknown Rx 24Hr] Active Meds: Active Medications Pantoprazole Sodium 80 mg/ (Sodium Chloride) 100 mls @ 10 mls/hr IV DIRECT SIOBHAN Last Admin: 11/18/20 22:44 Dose: 8 mg/hr, 10 mls/hr Documented by: Sodium Chloride (Nacl 0.9% 1000 Ml) 1,000 mls @ 75 mls/hr IV DIRECT SIOBHAN Last Admin: 11/19/20 03:07 Dose: 75 mls/hr Documented by: Sodium Chloride (Nacl 0.9% 500 Ml) 500 mls @ 0 mls/hr IV ONCE SIOBHAN Stop: 11/19/20 20:00 Cefepime HCl (Cefepime/Ns 2 Gm/100 Ml) 2 gm in 100 mls @ 200 mls/hr IV Q12HR SIOBHAN; Protocol Metronidazole (Flagyl 500 Mg/100 Ml) 500 mg in 100 mls @ 100 mls/hr IV Q8HR SIOBHAN; Protocol Morphine Sulfate (Morphine 2 Mg/1 Ml Inj) 2 mg IV Q4H PRN PRN Reason: Pain, Moderate (4-6) Last Admin: 11/19/20 03:03 Dose: 2 mg Documented by: Ondansetron HCl (Ondansetron 4 Mg/2 Ml Inj) 4 mg IV Q8H PRN PRN Reason: Nausea And Vomiting Last Admin: 11/19/20 03:04 Dose: 4 mg Documented by: Sodium Chloride (Sodium Chloride 0.9% 10 Ml Flush Syringe) 10 ml IV BID SIOBHAN Last Admin: 11/19/20 10:10 Dose: 10 ml Documented by: Sodium Chloride (Sodium Chloride 0.9% 10 Ml Flush Syringe) 10 ml IV PRN PRN PRN Reason: LINE FLUSH Review of Systems - Review of Systems All systems: negative Constitutional: weakness, no weight loss, no weight gain, no fever, no chills Cardiovascular: no chest pain, no edema, no palpitations Respiratory: no cough, no shortness of breath Gastrointestinal: abdominal pain, nausea, vomiting, coffee ground emesis Musculoskeletal: no gait dysfunction Neurological: weakness Psychiatric: anxiety Endocrine: no cold intolerance Hematologic/Lymphatic: no easy bruising Allergic/Immunologic: no wheezing Exam - Constitutional Vital Signs: Temp Pulse Resp BP Pulse Ox 98.1 F 95 H 22 106/64 97 11/19/20 12:00 11/19/20 04:30 11/19/20 05:22 11/19/20 04:30 11/19/20 10:00 General appearance: no acute distress - EENT Eyes: EOM intact ENT: hearing intact - Respiratory Respiratory effort: normal - Cardiovascular Rhythm: regular Heart Sounds: Present: S1 & S2 - Gastrointestinal General gastrointestinal: Present: soft, non-tender, non-distended - Integumentary Integumentary: Present: clear, warm - Neurologic Neurological: alert and oriented x3 - Labs CBC & Chem 7: 11/19/20 07:14 11/19/20 07:14 Lab Results: Laboratory Results - last 24 hr 11/18/20 11/18/20 11/18/20 20:27 20:27 20:27 WBC 11.3 H RBC 1.20 L Hgb 2.7 L* Hct 9.3 L* MCV 78 L MCH 23 L MCHC 29 L RDW 19.7 H Plt Count 548 H Lymph % (Auto) 13.9 [place] % (Auto) 9.7 H Eos % (Auto) 1.7 Baso % (Auto) 0.4 Lymph # (Auto) 1.6 [place] # (Auto) 1.1 H Eos # (Auto) 0.2 Baso # (Auto) 0.0 Seg Neutrophils % 74.3 H Seg Neutrophils # 8.4 H PT 16.6 H INR 1.34 H APTT 26.9 D-Dimer Sodium 136 L Potassium 4.5 Chloride 101.3 Carbon Dioxide 19 L Anion Gap 20 BUN 40 H Creatinine 0.8 Estimated GFR > 60 BUN/Creatinine Ratio 50 Glucose 133 H Lactic Acid Calcium 7.7 L Ferritin Total Bilirubin < 0.20 AST 26 ALT 30 Alkaline Phosphatase 58 Ammonia Lactate Dehydrogenase C-Reactive Protein Total Protein 4.9 L Albumin 2.3 L Albumin/Globulin Ratio 0.9 Lipase 52 Procalcitonin Coronavirus (PCR) Blood Type Antibody Screen Crossmatch 11/18/20 11/18/20 11/18/20 20:27 20:27 20:44 WBC RBC Hgb Hct MCV MCH MCHC RDW Plt Count Lymph % (Auto) [place] % (Auto) Eos % (Auto) Baso % (Auto) Lymph # (Auto) [place] # (Auto) Eos # (Auto) Baso # (Auto) Seg Neutrophils % Seg Neutrophils # PT INR APTT D-Dimer Sodium Potassium Chloride Carbon Dioxide Anion Gap BUN Creatinine Estimated GFR BUN/Creatinine Ratio Glucose Lactic Acid 7.80 H* Calcium Ferritin Total Bilirubin AST ALT Alkaline Phosphatase Ammonia 50.0 Lactate Dehydrogenase C-Reactive Protein Total Protein Albumin Albumin/Globulin Ratio Lipase Procalcitonin Coronavirus (PCR) Blood Type B POSITIVE Antibody Screen Negative Crossmatch See Detail 0511/18/20 11/18/20 23:22 23:22 Unknown WBC RBC Hgb Hct MCV MCH MCHC RDW Plt Count Lymph % (Auto) [place] % (Auto) Eos % (Auto) Baso % (Auto) Lymph # (Auto) [place] # (Auto) Eos # (Auto) Baso # (Auto) Seg Neutrophils % Seg Neutrophils # PT INR APTT D-Dimer Sodium Potassium Chloride Carbon Dioxide Anion Gap BUN Creatinine Estimated GFR BUN/Creatinine Ratio Glucose 94 Lactic Acid Calcium Ferritin 4.0 L Total Bilirubin AST ALT Alkaline Phosphatase Ammonia Lactate Dehydrogenase 10 L C-Reactive Protein 0.40 Total Protein Albumin Albumin/Globulin Ratio Lipase Procalcitonin Coronavirus (PCR) Negative Blood Type Antibody Screen Crossmatch 11/19/20 11/19/20 11/19/20 07:14 07:14 07:14 WBC RBC Hgb Hct MCV MCH MCHC RDW Plt Count Lymph % (Auto) [place] % (Auto) Eos % (Auto) Baso % (Auto) Lymph # (Auto) [place] # (Auto) Eos # (Auto) Baso # (Auto) Seg Neutrophils % Seg Neutrophils # PT 15.9 H INR 1.27 H APTT D-Dimer 256.70 H Sodium Potassium Chloride Carbon Dioxide Anion Gap BUN Creatinine Estimated GFR BUN/Creatinine Ratio Glucose Lactic Acid 0.80 Calcium Ferritin Total Bilirubin AST ALT Alkaline Phosphatase Ammonia Lactate Dehydrogenase C-Reactive Protein Total Protein Albumin Albumin/Globulin Ratio Lipase Procalcitonin 1.88 Coronavirus (PCR) Blood Type Antibody Screen Crossmatch 11/19/20 11/19/20 07:14 07:14 WBC 15.2 H RBC 1.84 L Hgb 4.9 L* Hct 15.4 L* D MCV 84 MCH 27 L MCHC 32 RDW 23.4 H Plt Count 439 Lymph % (Auto) 4.6 L [place] % (Auto) 5.6 Eos % (Auto) 0.1 Baso % (Auto) 0.1 Lymph # (Auto) 0.7 L [place] # (Auto) 0.8 Eos # (Auto) 0.0 Baso # (Auto) 0.0 Seg Neutrophils % 89.6 H Seg Neutrophils # 13.7 H PT INR APTT D-Dimer Sodium 140 Potassium 5.0 Chloride 109.4 H Carbon Dioxide 23 Anion Gap 13 BUN 38 H Creatinine 0.7 L Estimated GFR > 60 BUN/Creatinine Ratio 54 Glucose 84 Lactic Acid Calcium 7.7 L Ferritin Total Bilirubin AST ALT Alkaline Phosphatase Ammonia Lactate Dehydrogenase C-Reactive Protein Total Protein Albumin Albumin/Globulin Ratio Lipase Procalcitonin Coronavirus (PCR) Blood Type Antibody Screen Crossmatch - Imaging CT Scan: report reviewed Assessment and Plan This is a 45 yo male with pmh of PUD with last admission in 09/2020 with gastric ulcer with perforation s/p repair admitted overnight with coffee ground emesis and AMS/hypotension. # GI bleed # Coffee ground emesis # Melena - h/o gastric ulcer with perforation in 09/2020 s/p repair with Dr. Figueroa, general surgery. - Hgb at 2.7 on admission and 4.9 this morning. received 1 unit of PRBC today and awaiting another unit of PRBC. Not available in blood bank. - [place] BP with SBP in 90s. - no BM today. Rec - patient was seen this morning and EGD was ordered to be done after blood transfusion but delay in transfusion today. - Continue with PPI IV - NPO - GI endoscopy is not available afterhours. - will transfer to [facility] ICU for more urgent management. - monitor H/H.
--- NOTE | 2020-11-19 17:21 | Discharge Summary ---
Providers - Providers Date of Admission: 11/18/20 22:22 Date of discharge: 11/19/20 Attending physician: MARZENA GARCES 11/18/20 22:47 Consult to Dietitian/Nutrition [CONS] Routine Physician Instructions: Reason For Exam: Reason for Consult: Diet education Consult to Physician [CONS] Routine Comment: Dr. Page spoke with Dr. Ko @ [id number] Consulting Provider: MARIBEL KO Physician Instructions: Reason For Exam: GI bleed 11/18/20 22:56 Consult to Physician [CONS] Urgent Comment: Dr. Page spoke with Dr. Ko @ [id number] Consulting Provider: MARIBEL KO Physician Instructions: Reason For Exam: gi bleed 11/19/20 00:30 Consult to Physician [CONS] Urgent Comment: Consulting Provider: LANEY CORNELIUS Physician Instructions: Reason For Exam: GI BLEED, SEVERE ANEMIA Primary care physician: DOG BEAUTICIAN Hospitalization Condition: Stable Hospital course: This is a 45 yo male with pmh of PUD with last admission in 09/2020 with gastric ulcer with perforation s/p repair admitted last night with coffee ground emesis, AMS and hypotension. His mental status improved with IV fluid. He has had some epigastric pain, which improved today. Work up in the ED showed Hgb of 2.7, which trended up to 4.9 after 2 units blood transfusion. BUN 40, Cr 4.8. Lactic acid at 7.8. CT of abdomen pelvis showed moderate, diffuse patchy groundglass opacities, mild diffuse gastric wall thickening but no evidence of perforation or definite ulceration. COVID-19 was negative. EGD was ordered by GI which was supposed to be done after 4 more units of blood transfusion. But his transfusion got delayed as not enough same blood group PRBCs available in the hospital to transfuse. Patient hence will be transfer to [facility] for more urgent care. Disposition: [id number]/[id number] ANOTHER TYPE HLTHCARE Final Discharge Diagnosis (Prints w/discharge instructions): Severe Blood loss anemia. Acute GI bleed. Acute metabolic encephalopathy. Hypotension. PUD. Aspiration pneumonia. Covid PUI -ruled out with a negative test Time spent for discharge: 34 minutes Core Measure Documentation - Palliative Care Palliative Care/ Comfort Measures: Not Applicable - Core Measures Any of the following diagnoses?: none Exam - Constitutional Vitals: Temp Pulse Resp BP Pulse Ox 98.1 F 89 22 106/64 97 11/19/20 12:00 11/19/20 16:00 11/19/20 05:22 11/19/20 04:30 11/19/20 10:00 General appearance: Present: no acute distress, well-nourished - EENT Eyes: Present: PERRL ENT: hearing intact, clear oral mucosa - Neck Neck: Present: supple, normal ROM - Respiratory Respiratory effort: normal Respiratory: bilateral: CTA - Cardiovascular Heart Sounds: Present: S1 & S2. Absent: rub, click - Extremities Extremities: pulses symmetrical, No edema Peripheral Pulses: within normal limits - Abdominal General gastrointestinal: Present: soft, non-tender, non-distended, normal bowel sounds - Integumentary Integumentary: Present: clear, warm, dry - Musculoskeletal Musculoskeletal: gait normal, strength equal bilaterally - Psychiatric Psychiatric: appropriate mood/affect, intact judgment & insight - Neurologic Neurologic: CNII-XII intact, moves all extremities Plan Activity: advance as tolerated Diet: other (N.p.o. for now) Follow up with: PRIMARY CARE, [Primary Care Provider] - 3-5 Days Forms: Accompanied Note
[2020-11-19 19:06] VITALS: BP 95/57
== END 2020-11-19 18:50 | disposition short-term general hospital (02) | DRG 377 ==
LOC: ED 19:24 → CC1 22:22
PROVIDERS: ADMIT Internal Medicine Geriatric Medicine; ATTEND Internal Medicine
PROC: 30233N1 Transfusion of Nonautologous Red Blood Cells into Peripheral Vein, Percutaneous Approach (ICD-10-PCS; principal; 2020-11-18)
DX: K92.2 Gastrointestinal hemorrhage, unspecified (principal); G93.41 Metabolic encephalopathy; J69.0 Pneumonitis due to inhalation of food and vomit; E87.2 Acidosis; D64.9 Anemia, unspecified; E86.0 Dehydration; Z20.822 Contact with and (suspected) exposure to COVID-19; F10.10 Alcohol abuse, uncomplicated; I95.9 Hypotension, unspecified; D72.829 Elevated white blood cell count, unspecified; Z87.11 Personal history of peptic ulcer disease; Z79.899 Other long term (current) drug therapy
CPT/HCPCS: 36415; 71045; 74177; 80048; 80053; 82140; 82728; 82947; 83615; 83690; 83735; 84100; 84145; 85025; 85379; 85610; 85730; 86140; 86850; 86900; 86901; 86920; 87040; 96365; 96375; G0378; C9113; J0692; J2270; J2405; J7030; P9016; Q9967; U0003

== ENCOUNTER 2020-12-29 08:16 | Emergency (ER) | payer SELFPAY ==
[2020-12-29] MEDS ORDERED: SIMETHICONE 80 MG CHEW TAB PO ONE (09:08)
[2020-12-29] MEDS ORDERED: SODIUM CHLORIDE 0.9% 1000 ML 1,000 ML IV ONE (09:09)
[2020-12-29] MEDS ORDERED: MORPHINE 4 MG/1 ML INJ IV ONE (09:09)
--- NOTE | 2020-12-29 09:13 | Emergency Department Report ---
HPI - General Chief Complaint: Abdominal Pain Time Seen by Provider: 12/29/20 09:02 - HPI HPI: This is a 45-year-old -[place] male presents to the emergency department with complaint of some mid abdominal pain, along with some nausea without vomit ing, it has been going on for the past 1 week. The patient has a history of a perforated gastric ulcer that occurred in August of this year. He went to the OR with Dr. Mcconnell and was found to have about 1 L of gastric content that had spilled into the abdominal cavity. The patient was last here in November of this year for abdominal pain and an upper GI bleed. The patient was transferred to [facility] for an endoscopy as we did not have after hours or weekend availability to do it here. The patient says that he has taken a gas pill which initially helped with his discomfort but it came back and has been refractory to Gas-X. Currently his abdominal pain is about a 6 out of 10 in intensity. No known aggravating or alleviating factors. He denies any rectal bleeding. ED Past Medical Hx - Past Medical History Previous Medical History?: Yes Hx Hypertension: Yes Hx Heart Attack/AMI: No Hx Congestive Heart Failure: No Hx Diabetes: No Hx Liver Disease: No Hx Renal Disease: No Hx Sickle Cell Disease: No Hx Seizures: No Hx Asthma: No Hx COPD: No - Surgical History Past Surgical History?: Yes Hx Pacemaker: No Hx Internal Defibrillator: No Additional Surgical History: perforated ulcer- hx of ETOH? - Social History Smoking Status: Current Some Day Smoker Substance Use Type: None - Medications Home Medications: Home Medications Medication Instructions Recorded Confirmed Last Taken Type Mag Hydrox/Aluminum Hyd/Simeth 15 ml PO Q6H #1 oral.susp 09/08/20 11/19/20 Unknown Rx [Maalox Advanced Suspension] Esomeprazole Magnesium [Nexium 20 mg PO DAILY #14 capsule.dr 10/02/20 11/19/20 Unknown Rx 24Hr] Pantoprazole [Protonix TAB] 40 mg PO QDAY #30 tablet 12/29/20 Unknown Rx ED Review of Systems ROS: Stated complaint: ABDOMINAL PAIN Other details as noted in HPI Comment: All other systems reviewed and negative Constitutional: denies: chills, fever Eyes: denies: eye pain, vision change ENT: denies: ear pain, throat pain Respiratory: denies: cough, shortness of breath Cardiovascular: denies: chest pain, palpitations Gastrointestinal: abdominal pain, nausea. denies: vomiting, hematemesis, jeri rich, hematochezia Genitourinary: denies: dysuria, discharge Musculoskeletal: denies: back pain, arthralgia Skin: denies: rash, lesions Neurological: denies: headache, weakness Physical Exam - Physical Exam Vital Signs: Vital Signs 12/29/20 12/29/20 08:49 09:04 Temperature 98.1 F Pulse Rate 73 67 Respiratory 16 Rate Blood Pressure 140/80 Blood Pressure 143/87 [Left] O2 Sat by Pulse 100 100 Oximetry Physical Exam: GENERAL: The patient is well-developed well-nourished. HENT: Normocephalic. Atraumatic. Patient has moist mucous membranes. EYES: Extraocular motions are intact. NECK: Supple. Trachea is midline. CHEST/LUNGS: Clear to auscultation. There is no respiratory distress noted. HEART/CARDIOVASCULAR: Regular. There is no tachycardia. There is no murmur. ABDOMEN: Abdomen is soft. There is some midline and left upper quadrant abdominal tenderness to palpation. No guarding. Patient has normal bowel sounds. There is no abdominal distention. SKIN: Skin is warm and dry. NEURO: The patient is awake, alert, and oriented. The patient is cooperative. The patient has no focal neurologic deficits. Normal speech. MUSCULOSKELETAL: There is no tenderness or deformity. There is no limitation range of motion. ED Course Vital Signs 12/29/20 12/29/20 08:49 09:04 Temperature 98.1 F Pulse Rate 73 67 Respiratory 16 Rate Blood Pressure 140/80 Blood Pressure 143/87 [Left] O2 Sat by Pulse 100 100 Oximetry ED Medical Decision Making - Lab Data Result diagrams: 12/29/20 09:35 12/29/20 09:35 Lab Results 12/29/20 12/29/20 12/29/20 Range/Units 09:35 09:35 09:35 WBC 8.5 (4.5-11.0) K/mm3 RBC 5.06 H (3.65-5.03) M/mm3 Hgb 11.4 L (11.8-15.2) gm/dl Hct 37.8 (35.5-45.6) % MCV 75 L (84-94) fl MCH 23 L (28-32) pg MCHC 30 L (32-34) % RDW 20.8 H (13.2-15.2) % Plt Count 531 H (140-440) K/mm3 Lymph % (Auto) 10.5 L (13.4-35.0) % [place] % (Auto) 9.7 H (0.0-7.3) % Eos % (Auto) 7.6 H (0.0-4.3) % Baso % (Auto) 1.1 (0.0-1.8) % Lymph # (Auto) 0.9 L (1.2-5.4) K/mm3 [place] # (Auto) 0.8 (0.0-0.8) K/mm3 Eos # (Auto) 0.6 H (0.0-0.4) K/mm3 Baso # (Auto) 0.1 (0.0-0.1) K/mm3 Seg Neutrophils % 71.1 H (40.0-70.0) % Seg Neutrophils # 6.0 (1.8-7.7) K/mm3 PT 12.7 (12.2-14.9) Sec. INR 0.90 (0.87-1.13) Sodium 143 (137-145) mmol/L Potassium 3.5 L (3.6-5.0) mmol/L Chloride 101.8 (98-107) mmol/L Carbon Dioxide 25 (22-30) mmol/L Anion Gap 20 mmol/L BUN 9 (9-20) mg/dL Creatinine 0.7 L (0.8-1.3) mg/dL Estimated GFR > 60 ml/min BUN/Creatinine Ratio 13 % Glucose 93 (75-100) mg/dL Calcium 10.7 H (8.4-10.2) mg/dL Total Bilirubin (0.1-1.2) mg/dL Direct Bilirubin (0-0.2) mg/dL Indirect Bilirubin mg/dL AST (5-40) units/L ALT (7-56) units/L Alkaline Phosphatase (35-129) units/L Total Protein (6.3-8.2) g/dL Albumin (3.9-5) g/dL Albumin/Globulin Ratio % // Range/Units 09:35 WBC (4.5-11.0) K/mm3 RBC (3.65-5.03) M/mm3 Hgb (11.8-15.2) gm/dl Hct (35.5-45.6) % MCV (84-94) fl MCH (28-32) pg MCHC (32-34) % RDW (13.2-15.2) % Plt Count (140-440) K/mm3 Lymph % (Auto) (13.4-35.0) % [place] % (Auto) (0.0-7.3) % Eos % (Auto) (0.0-4.3) % Baso % (Auto) (0.0-1.8) % Lymph # (Auto) (1.2-5.4) K/mm3 [place] # (Auto) (0.0-0.8) K/mm3 Eos # (Auto) (0.0-0.4) K/mm3 Baso # (Auto) (0.0-0.1) K/mm3 Seg Neutrophils % (40.0-70.0) % Seg Neutrophils # (1.8-7.7) K/mm3 PT (12.2-14.9) Sec. INR (0.87-1.13) Sodium (137-145) mmol/L Potassium (3.6-5.0) mmol/L Chloride (98-107) mmol/L Carbon Dioxide (22-30) mmol/L Anion Gap mmol/L BUN (9-20) mg/dL Creatinine (0.8-1.3) mg/dL Estimated GFR ml/min BUN/Creatinine Ratio % Glucose (75-100) mg/dL Calcium (8.4-10.2) mg/dL Total Bilirubin 0.30 (0.1-1.2) mg/dL Direct Bilirubin < 0.2 (0-0.2) mg/dL Indirect Bilirubin 0.1 mg/dL AST 24 (5-40) units/L ALT 11 (7-56) units/L Alkaline Phosphatase 95 (35-129) units/L Total Protein 9.1 H (6.3-8.2) g/dL Albumin 5.1 H (3.9-5) g/dL Albumin/Globulin Ratio 1.3 % - Radiology Data Radiology results: image reviewed interpreted by me: Chest x-ray does not show any acute process. There are no pleural effusions, obvious pneumonia and there is no pneumothorax. Abdominal x-ray shows nonspecific nonobstructive bowel gas. No free air. - Medical Decision Making This patient presents with complaint of some middle abdominal and epigastric abdominal pain that has been going on over the past week. The patient has a history of peptic ulcer disease with a previous perforated gastric ulcer and a relatively recent upper GI bleed that was evaluated and treated at [facility]. Today, on examination, the patient's abdomen is soft, nondistended and nontoxic in appearance. There is some very mild reproducible middle abdominal and epigastric tenderness to palpation. Abdominal x-ray shows nonspecific nonobstructive bowel gas and no free air. Labs have been unremarkable including CBC, metabolic panel, coags. Patient was given a dose of simethicone and a small dose of IV analgesia. He was reevaluated multiple times of multiple hours and his abdominal pain has completely resolved. Given the normal labs, normal appearing x-ray, and the fac t that the patient is currently asymptomatic, I do not feel that he requires a repeat CT imaging of the abdomen and pelvis and he appears safe for discharge home at this time. He has a follow-up appointment with Dr. Mcconnell in 1 week. He has been given an outpatient referral for gastroenterology. He will return to the emergency department with any worsening of his symptoms or with any acute distress. Critical Care Time: No Critical care attestation.: If time is entered above; I have spent that time in minutes in the direct care of this critically ill patient, excluding procedure time. ED Disposition Clinical Impression: PUD (peptic ulcer disease) Abdominal pain Qualifiers: Abdominal location: unspecified location Qualified Code(s): R10.9 - Unspecified abdominal pain Disposition: TO HOME OR SELFCARE Is pt being admited?: No Condition: Stable Instructions: Abdominal Pain, Adult Additional Instructions: Please follow-up with your primary care physician in the next few days. Please follow-up with your general surgeon, Dr. Mcconnell, as previously scheduled. I have given you a referral for [facility] to follow-up regarding your abdominal pains and history of peptic ulcer disease. Try to stay away from alcohol, spicy foods, or excessive caffeine intake. Return to the emergency department with any worsening of your symptoms, new or concerning symptoms not addressed during this current emergency department visit, or with any acute distress. Prescriptions: Pantoprazole [Protonix TAB] 40 mg PO QDAY #30 tablet Referrals: ANNE MARIE MCCONNELL DO [Staff Physician] - 3-5 Days [facility] [Provider Group] - 3-5 Days Time of Disposition: 11:41
--- NOTE | 2020-12-29 09:50 | XRay Report ---
ABDOMEN SERIES WITH ONE VIEW CHEST INDICATION / CLINICAL INFORMATION: Abd pain. COMPARISON: None available. FINDINGS: TUBES / LINES: None. BOWEL GAS PATTERN: No significant abnormality. FREE AIR / EXTRALUMINAL GAS: None seen. ADDITIONAL FINDINGS: No significant additional findings. LUNGS: Visualized lungs show no significant abnormality. IMPRESSION: 1. No significant abnormality. Signer Name: Guy Hdez MD Signed: 12/29/2020 9:45 AM Workstation Name: [id number]
[2020-12-29 10:31] LABS: Basophils # (Auto) 0.1 K/mm3 (0.0-0.1); Basophils % (Auto) 1.1 % (0.0-1.8); Eosinophils # (Auto) 0.6 K/mm3 (0.0-0.4); Eosinophils % (Auto) 7.6 % (0.0-4.3); Lymphocytes # (Auto) 0.9 K/mm3 (1.2-5.4); Lymphocytes % (Auto) 10.5 % (13.4-35.0); Mean Corpuscular HGB Conc 30 % (32-34); Mean Corpuscular Volume 75 fl (84-94); Monocytes # (Auto) 0.8 K/mm3 (0.0-0.8); Monocytes % (Auto) 9.7 % (0.0-7.3); Platelet Count 531 K/mm3 (140-440); Red Blood Count 5.06 M/mm3 (3.65-5.03)
[2020-12-29 10:36] LABS: Hemoglobin 11.4 gm/dl (11.8-15.2)
[2020-12-29 10:37] LABS: Hematocrit 37.8 % (35.5-45.6); Red Cell Distribution Width 20.8 % (13.2-15.2)
[2020-12-29 10:39] LABS: INR 0.9 (0.87-1.13)
[2020-12-29 11:10] LABS: Blood Urea Nitrogen 9 mg/dL (9-20); Calcium 10.7 mg/dL (8.4-10.2); Hemolysis Index 0
[2020-12-29 11:13] LABS: Alanine Aminotransferase 11 units/L (7-56); Albumin 5.1 g/dL (3.9-5)
[2020-12-29 11:19] LABS: BUN/Creatinine Ratio 13; Bilirubin,Direct < 0.2 mg/dL (0-0.2)
[2020-12-29 12:02] VITALS: BP 130/76
== END 2020-12-29 12:15 | disposition home or self-care (01) ==
LOC: ED 08:16
DX: K27.9 Peptic ulcer, site unspecified, unspecified as acute or chronic, without hemorrhage or perforation (principal); I10 Essential (primary) hypertension; F17.200 Nicotine dependence, unspecified, uncomplicated
CPT/HCPCS: 36415; 74022; 80048; 80076; 85025; 85610; 96361; 96374; 99284; J2270; J7030

== ENCOUNTER 2021-12-18 08:45 | Emergency (ER) | payer SELFPAY ==
[2021-12-18 11:32] LABS: Basophils % (Auto) 0.3 % (0.0-1.8); Eosinophils # (Auto) 0.2 K/mm3 (0.0-0.4); Eosinophils % (Auto) 2.1 % (0.0-4.3); Hematocrit 47.2 % (35.5-45.6); Hemoglobin 15.4 gm/dl (11.8-15.2); Lymphocytes % (Auto) 13.5 % (13.4-35.0); Mean Corpuscular HGB Conc 33 % (32-34); Mean Corpuscular Volume 83 fl (84-94); Monocytes # (Auto) 0.7 K/mm3 (0.0-0.8); Monocytes % (Auto) 9.9 % (0.0-7.3); Platelet Count 227 K/mm3 (140-440); Red Blood Count 5.68 M/mm3 (3.65-5.03); Red Cell Distribution Width 17.9 % (13.2-15.2)
[2021-12-18 11:51] LABS: Alanine Aminotransferase 16 units/L (7-56); Albumin 5.1 g/dL (3.9-5); BUN/Creatinine Ratio 19; Blood Urea Nitrogen 19 mg/dL (9-20); Calcium 10.1 mg/dL (8.4-10.2); Hemolysis Index 7
[2021-12-19] MEDS ORDERED: PANTOPRAZOLE 40 MG INJ IV ONE (00:40)
[2021-12-19] MEDS ORDERED: ONDANSETRON 4 MG/2 ML INJ IV ONE (00:40)
[2021-12-19] MEDS ORDERED: MORPHINE 4 MG/1 ML INJ IV ONE (00:40)
[2021-12-19] MEDS ORDERED: SODIUM CHLORIDE 0.9% 1000 ML 1,000 ML IV ONE (00:40)
--- NOTE | 2021-12-19 00:43 | Emergency Department Report ---
ED Abdominal Pain HPI - General Chief Complaint: Abdominal Pain Stated Complaint: PAIN IN MIDDLE OF STOMACH Time Seen by Provider: 12/19/21 00:34 Source: patient Mode of arrival: Ambulatory Limitations: No Limitations - History of Present Illness Initial Comments: Patient is 46 years old male with past medical history of perforated ulcer status post laparotomy 1 year ago. Patient presented to the ER complaining of epigastric abdominal pain for the last 2 days. Patient stated that he has been having nausea and vomiting. He denied any diarrhea. Also denied any fever or chills. No chest pain or shortness of breath. MD Complaint: abdominal pain -: days(s) (2) Location: epigastric Radiation: none Severity scale (0 -10): 10 Quality: sharp Associated Symptoms: nausea, vomiting - Related Data Previous Rx's Medication Instructions Recorded Last Taken Type Mag Hydrox/Aluminum Hyd/Simeth 15 ml PO Q6H #1 oral.susp 09/08/20 Unknown Rx [Maalox Advanced Suspension] Esomeprazole Magnesium [Nexium 20 mg PO DAILY #14 capsule.dr 10/02/20 Unknown Rx 24Hr] Pantoprazole [Protonix TAB] 40 mg PO QDAY #30 tablet 12/29/20 Unknown Rx Allergies Allergy/AdvReac Type Severity Reaction Status Date / Time No Known Allergies Allergy Unverified 09/18/18 16:28 ED Review of Systems ROS: Stated complaint: PAIN IN MIDDLE OF STOMACH Other details as noted in HPI Comment: All other systems reviewed and negative Constitutional: denies: chills, fever Respiratory: denies: cough, shortness of breath Cardiovascular: denies: chest pain, palpitations Gastrointestinal: abdominal pain, nausea, vomiting. denies: diarrhea, consti pation, hematemesis, melena, hematochezia Musculoskeletal: denies: back pain Neurological: denies: headache, weakness, numbness, paresthesias, confusion ED Past Medical Hx - Past Medical History Previous Medical History?: Yes Hx Hypertension: Yes Hx Heart Attack/AMI: No Hx Congestive Heart Failure: No Hx Diabetes: No Hx Liver Disease: No Hx Renal Disease: No Hx Sickle Cell Disease: No Hx Seizures: No Hx Asthma: No Hx COPD: No - Surgical History Past Surgical History?: Yes Hx Pacemaker: No Hx Internal Defibrillator: No Additional Surgical History: perforated ulcer- hx of ETOH - Social History Smoking Status: Current Some Day Smoker Substance Use Type: None - Medications Home Medications: Home Medications Medication Instructions Recorded Confirmed Last Taken Type Mag Hydrox/Aluminum Hyd/Simeth 15 ml PO Q6H #1 oral.susp 09/08/20 11/19/20 Unknown Rx [Maalox Advanced Suspension] Esomeprazole Magnesium [Nexium 20 mg PO DAILY #14 capsule. 10/02/20 11/19/20 Unknown Rx 24Hr] Pantoprazole [Protonix TAB] 40 mg PO QDAY #30 tablet 12/29/20 Unknown Rx ED Physical Exam - General Limitations: No Limitations General appearance: alert, in no apparent distress - Head Head exam: Present: atraumatic, normocephalic, normal inspection - Eye Eye exam: Present: normal appearance, PERRL - Neck Neck exam: Present: normal inspection, full ROM. Absent: tenderness, meningismus - Respiratory Respiratory exam: Present: normal lung sounds bilaterally - Cardiovascular Cardiovascular Exam: Present: regular rate, normal rhythm, normal heart sounds - GI/Abdominal GI/Abdominal exam: Present: soft, normal bowel sounds. Absent: distended, tenderness, guarding, rebound, rigid, organomegaly, mass, bruit, pulsatile mass, hernia - Extremities Exam Extremities exam: Present: normal inspection, full ROM, normal capillary refill. Absent: tenderness, pedal edema, joint swelling, calf tenderness - Back Exam Back exam: Present: normal inspection, full ROM. Absent: CVA tenderness (R), CVA tenderness (L) - Neurological Exam Neurological exam: Present: alert, oriented X3, CN II-XII intact, normal gait, reflexes normal. Absent: motor sensory deficit - Psychiatric Psychiatric exam: Present: normal mood - Skin Skin exam: Present: warm, intact, normal color ED Course Vital Signs 12/18/21 12/19/21 08:58 01:03 Temperature 98.6 F 98.5 F Pulse Rate 82 70 Respiratory 16 19 Rate Blood Pressure 122/83 137/81 [Right] O2 Sat by Pulse 98 96 Oximetry ED Medical Decision Making - Lab Data Result diagrams: 12/18/21 11:05 12/18/21 11:05 - Radiology Data Radiology results: report reviewed - Medical Decision Making Patient is 46 years old male with past medical history of perforated ulcer status post laparotomy 1 year ago. Patient presented to the ER complaining of epigastric abdominal pain for the last 2 days. Patient stated that he has been having nausea and vomiting. He denied any diarrhea. Also denied any fever or chills. No chest pain or shortness of breath. Patient received morphine, Zofran and Protonix. Labs reviewed and is unremarkable. CT abdomen and pelvis with IV contrast showed no acute finding except for possible gastritis. Patient also received Mylanta and vicious lidocaine. Patient stated that he is feeling much better. Patient given pre scription for sucralfate and Nexium and advised to follow-up with his primary doctor in the next 2 to 3 days and to return to the emergency room for further management if symptoms not improving Critical care attestation.: If time is entered above; I have spent that time in minutes in the direct care of this critically ill patient, excluding procedure time. ED Disposition Clinical Impression: Acute abdominal pain, Acute gastritis Disposition: HOME / SELF CARE / HOMELESS Is pt being admited?: No Condition: Stable Instructions: Gastritis, Adult, [id number], Abdominal Pain, Adult, [id number] Referrals: PRIMARY CARE, [Primary Care Provider] - 3-5 Days
--- NOTE | 2021-12-19 01:45 | Cat Scan Report ---
CT ABDOMEN AND PELVIS WITH CONTRAST INDICATION / CLINICAL INFORMATION: abdominal pain. TECHNIQUE: Axial CT images were obtained through the abdomen and pelvis after 100 cc Omnipaque [address] scans at this location are performed using CT dose reduction for ALARA by means of automated exposure control. COMPARISON: CT abdomen and pelvis 11/18/2020 FINDINGS: LOWER CHEST: No significant abnormality of the imaged chest. LIVER: No focal lesion. No acute findings. GALLBLADDER / BILE DUCTS: No significant abnormality. Biliary ducts grossly unremarkable. SPLEEN: No significant abnormality. PANCREAS: No significant abnormality. ADRENALS: No significant abnormality. KIDNEYS/URETERS: Right renal cysts are stable. Kidneys demonstrate no acute findings. STOMACH / DUODENUM / SMALL BOWEL: Diffuse gastric wall thickening is demonstrated with prominent cher caryn folds, no obvious disruption of mucosal enhancement to suggest ulcer. This mostly involves the mi d to distal antrum. Mild to moderate perigastric fat stranding and ascites present. The duodenum and small bowel demonstrate no significant abnormalities. COLON: Diverticulosis without acute inflammation. Sigmoid colon is not well distended and wall thicke jennifer involving sigmoid colon is not excluded. APPENDIX: Appendix not clearly identified. PERITONEUM: No free air or free fluid are present within the abdomen or pelvis. LYMPH NODES: No significant adenopathy. AORTA / ARTERIES: No significant abnormality. IVC / VEINS: No significant abnormality. URINARY BLADDER: No significant abnormality. REPRODUCTIVE ORGANS: The prostate appears enlarged. ADDITIONAL ABDOMINAL/PELVIC FINDINGS: None. SKELETAL SYSTEM: No significant abnormality. IMPRESSION: 1. Diffuse thickening of the gastric wall somewhat similar to prior study. Differential consideration s include gastritis, lymphoma, inflammatory bowel disease, other neoplasms not excluded. No distinct disruption of mucosal enhancement to suggest ulceration. 2. Nonspecific segment wall thickening of sigmoid colon likely influenced by lack of distention. Infl ammatory bowel disease not excluded. 3. Other nonacute findings are present as detailed. Signer Name: Luis Parks II, MD Signed: 12/19/2021 1:40 AM Workstation Name: [id number]
[2021-12-19] MEDS ORDERED: LIDOCAINE VISCOUS 2% 15 ML ORAL LIQD PO ONE (02:01)
[2021-12-19] MEDS ORDERED: ALUM-MAG HYDROXIDE-SIMETHICONE 200-200-20MG/5ML ORAL LIQD 30 ML PO ONE (02:01)
[2021-12-19 04:27] VITALS: BP 109/69
== END 2021-12-19 04:35 | disposition home or self-care (01) ==
LOC: ED 08:45
DX: R10.9 Unspecified abdominal pain (principal); K29.00 Acute gastritis without bleeding; I10 Essential (primary) hypertension; F17.200 Nicotine dependence, unspecified, uncomplicated; Z79.899 Other long term (current) drug therapy
CPT/HCPCS: 36415; 74177; 80053; 83690; 85025; 96361; 96374; 96375; 99284; C9113; J2270; J2405; J7030; Q9967